=== PATIENT | female | born 1940 | race Caucasian/White ===

== ENCOUNTER → 2016-08-02 | Outpatient (CLI) | payer MEDICARE, BC ==
--- NOTE | 2016-08-03 08:48 | MM ---
Reason for exam: screening (asymptomatic). Last mammogram was performed 5 years and 8 months ago. History: Patient is postmenopausal. Took hormonal contraceptives for 5 years. Physical Findings: A clinical breast exam by your physician is recommended on an annual basis and results should be correlated with mammographic findings. MG Screening Mammo w CAD Bilateral CC and MLO view(s) were taken. Prior study comparison: November 29, 2010, CAD bilateral diagnostic mammogram. The breast tissue is extremely dense which could obscure a lesion on mammography. Finding: There are typically benign calcifications in both breasts. No significant changes in finding since November 29, 2010. ASSESSMENT: Benign, BI-RAD 2 RECOMMENDATION: Routine screening mammogram of both breasts in 1 year.
== END | disposition home or self-care (01) ==
LOC: RADMAMWWP 07:49
PROVIDERS: ATTEND Family Medicine
DX: Z12.31 Encounter for screening mammogram for malignant neoplasm of breast (principal)

== ENCOUNTER 2017-03-28 07:47 | Day surgery (SDC) | payer MEDICARE, BC ==
[2017-03-23 13:46] VITALS: BMI 26.8
[~2017-03-28 07:47] MED LIST: LACTATED RINGERS 1,000 ML IV SCH
[2017-03-28 08:07] VITALS: RESP 16; TEMP 96.1
[2017-03-28] MEDS ORDERED: LIDOCAINE 1% 20 ML VIAL (10MG/ML) FOR IV START INTRADERMA ONE (08:14)
--- NOTE | 2017-03-28 08:18 | P.GSHP ---
History of Present Illness H&P Date: 03/28/17 CHIEF COMPLAINT: Colon screen HISTORY OF PRESENT ILLNESS: The patient is a 76-year-old female who presents for colon screen. Lower endoscopy was offered for further evaluation and management. PAST MEDICAL HISTORY: Please see list. PAST SURGICAL HISTORY: Please see list. MEDICATIONS: Please see list. ALLERGIES: Please see list. SOCIAL HISTORY: No illicit drug use FAMILY HISTORY: No reports of Crohn disease or ulcerative colitis. REVIEW OF ORGAN SYSTEMS: CONSTITUTIONAL: No reports of fevers or chills. PHYSICAL EXAM: VITAL SIGNS: Stable GENERAL: Well-developed pleasant in no acute distress. HEENT: No scleral icterus. Extraocular movements grossly intact. Moist buccal mucosa. NECK: Supple without lymphadenopathy. CHEST: Unlabored respirations. Equal bilateral excursions. CARDIOVASCULAR: Regular rate and rhythm. Distal 2+ pulses. ABDOMEN: Soft, nontender, nondistended. MUSCULOSKELETAL: No clubbing, cyanosis, or edema. ASSESSMENT: 1. Colon screen. PLAN: 1. Recommend proceeding with a lower endoscopy Past Medical History Past Medical History: CVA/TIA, Hyperlipidemia, Hypertension Additional Past Medical History / Comment(s): KIDNEY STONES,Heart Murmur History of Any Multi-Drug Resistant Organisms: None Reported Past Surgical History: Cholecystectomy Additional Past Surgical History / Comment(s): nephrostomy Past Anesthesia/Blood Transfusion Reactions: No Reported Reaction, Family History of Problems w/ Anesthesia Additional Past Anesthesia/Blood Transfusion Reaction / Comment(s): daughter stopped breathing during anesthesia Smoking Status: Former smoker - Past Family History Sister(s) Family Medical History: Cancer Additional Family Medical History / Comment(s): ONE SISTER LYMPHOMA, AND ONE WITH MULT MYELONOMA Medications and Allergies Home Medications Medication Instructions Recorded Confirmed Type Aspirin [Adult Low Dose Aspirin EC] 1 tab PO DAILY 03/23/17 03/23/17 History Lisinopril-Hctz 10-12.5 mg 1 tab PO DAILY 03/23/17 03/23/17 History [Zestoretic 10-12.5] Simvastatin [Zocor] 20 mg PO HS 03/23/17 03/23/17 History Allergies Allergy/AdvReac Type Severity Reaction Status Date / Time No Known Allergies Allergy Verified 03/28/17 08:05 Surgical - Exam Vital Signs Temp Pulse Resp BP Pulse Ox 96.1 F L 84 16 157/77 95 03/28/17 08:05 03/28/17 08:05 03/28/17 08:05 03/28/17 08:05 03/28/17 08:05
[2017-03-28] MEDS ORDERED: GLYCOPYRROLATE 0.2 MG/ML 2 ML VIAL ONE (08:30)
[2017-03-28] MEDS ORDERED: PROPOFOL 10 MG/ML 20 ML VIAL IV ONE (08:30)
[2017-03-28] MEDS ORDERED: LIDOCAINE 1% INJ 10MG/ML (20 ML MDV) ONE (08:30)
--- NOTE | 2017-03-28 08:58 | P.PCN ---
Date of Procedure: 03/28/17 Preoperative Diagnosis: Postoperative Diagnosis: Procedure(s) Performed: Implants: Indications for Procedure: Operative Findings: Description of Procedure: PREOPERATIVE DIAGNOSIS: Colonoscopy screening. POSTOPERATIVE DIAGNOSIS: Colonoscopy screening. Diverticulosis, scattered. External hemorrhoids, grade 3. OPERATION: Colonoscopy to the ileocecal valve and appendiceal orifice. SURGEON: Chio Strickland MD. ANESTHESIA: MAC. INDICATIONS: The patient is a 76-year-old female who presents for her first colonoscopy screening. Benefits and risks were described and informed consent was obtained. DESCRIPTION OF PROCEDURE: The patient had undergone Gatorade, MiraLAX and Dulcolax prep. He had been brought into the operating room and laid in the left lateral decubitus position. After adequate intravenous sedation, the rectum was examined with 2% lidocaine jelly. External hemorrhoids were encountered. The rectal tone was within normal limits. No lesions were palpated in the rectal vault. An Olympus colonoscope was advanced until the ileocecal valve and appendiceal orifice were clearly viewed. Abdominal pressure was used to advance the scope to the ileocecal valve. The prep was excellent with clear visualization of the mucosal folds. The scope was removed with visualization of each mucosal fold. Scattered diverticulosis was encountered along the sigmoid colon. No colonic polyps were found. No evidence of focal colitis was found. The colon was desufflated. The patient had tolerated the procedure well. Withdrawal time was over 6 minutes. FINDINGS: External hemorrhoids, grade 3 No arteriovenous malformations. No adenomatous polyps. No focal colitis. Diverticulosis with tortuous colon. RECOMMENDATIONS: Lower endoscopy as needed she is low risk.
[2017-03-28 09:23] VITALS: BP 144/74; PULSE 78
== END 2017-03-28 09:44 | disposition home or self-care (01) ==
LOC: ORWHC2ENDO 07:47
PROVIDERS: ATTEND Surgery Plastic and Reconstructive Surgery
DX: Z12.11 Encounter for screening for malignant neoplasm of colon (principal); K57.30 Diverticulosis of large intestine without perforation or abscess without bleeding; K64.2 Third degree hemorrhoids; Q43.8 Other specified congenital malformations of intestine; Z86.73 Personal history of transient ischemic attack (TIA), and cerebral infarction without residual deficits; I10 Essential (primary) hypertension; E78.5 Hyperlipidemia, unspecified; Z87.891 Personal history of nicotine dependence; Z79.82 Long term (current) use of aspirin; Z79.899 Other long term (current) drug therapy
CPT/HCPCS: J2001; J2704; G0121

== ENCOUNTER → 2020-05-24 | Outpatient (CLI) | payer MEDICARE, BC ==
--- NOTE | 2020-05-24 15:02 | US ---
EXAMINATION TYPE: US pelvis complete transvag DATE OF EXAM: 05/24/2020 COMPARISON: Pelvic ultrasound 2012. CT pelvis 2013 CLINICAL HISTORY: N95.0 postmenopausal bleeding. Postmenopausal bleeding. TECHNIQUE: Transvaginal (TV) and Transabdominal (TA) . Transabdominal sonographic images of the pel vis were acquired. Transvaginal sonographic images were medically necessary to better assess the fol lowing anatomy: Uterus and ovaries. EXAM MEASUREMENTS: Uterus: 7.2 x 4.1 x 3.8 cm Endometrial Stripe: Not well visualized due to fibroid Right Ovary: 2.4 x 2.5 x 1.9 x cm Left Ovary: 3.0 x 1.5 x 2.5 cm 1. Uterus: Anteverted Heterogenous 2. Endometrium: Not will visualized due to fibroid. 3. Right Ovary: Cystic area seen 2.2 x 2.2 x 1.9 cm 4. Left Ovary: 3.0 x 1.5 x 2.5 cm 5. Bilateral Adnexa: wnl 6. Posterior cul-de-sac: wnl Anteverted uterus. Heterogeneous 3.5 cm fundal fibroid. No free fluid. Both ovaries identified with 2.2 cm thin-walled cyst in right ovary seen. Left ovary less well seen o n images saved. Left ovary identified on transabdominal investigation felt within normal limits. Righ t adnexal fat-containing lesion or dermoid with calcification on CT less well seen on ultrasound. IMPRESSION: Poor visualization of endometrium suspected atrophic. Probable 2.9 cm posterior subserosa l fibroid.
== END | disposition home or self-care (01) ==
LOC: RADUSWWP 14:19
PROVIDERS: ATTEND Family Medicine
DX: N95.0 Postmenopausal bleeding (principal)
CPT/HCPCS: 76830; 76856

== ENCOUNTER → 2020-05-26 | Outpatient (CLI) | payer MEDICARE, BC ==
[2020-05-26 09:58] LABS: Basophils % (A) 1 %; Eosinophils # (A) 0.1 k/uL (0-0.7); Eosinophils % (A) 3 %; HCT 43.7 % (34.0-46.0); HGB 14.1 gm/dL (11.4-16.0); Lymphocytes # (A) 1.6 k/uL (1.0-4.8); Lymphocytes % (A) 35 %; MCHC 32.3 g/dL (31.0-37.0); MCV 89.6 fL (80.0-100.0); Mean Platelet Volume 8.5; Monocytes # (A) 0.3 k/uL (0-1.0); Monocytes % (A) 5 %; Neutrophils # (A) 2.5 k/uL (1.3-7.7); Neutrophils % (A) 54 %; Platelet Count 228 k/uL (150-450); RBC 4.88 m/uL (3.80-5.40); RDW 12.9 % (11.5-15.5); WBC 4.6 k/uL (3.8-10.6)
== END | disposition home or self-care (01) ==
LOC: LABPAT 08:18
PROVIDERS: ATTEND Obstetrics & Gynecology
DX: Z01.818 Encounter for other preprocedural examination (principal)
CPT/HCPCS: 36415; 85025; 93005

== ENCOUNTER 2020-05-31 06:15 | Day surgery (SDC) | payer MEDICARE, BC ==
[2020-05-27 13:56] VITALS: BMI 27.8
[~2020-05-31 06:15] MED LIST changes: +DEXAMETHASONE SOD PHOSPHATE 4 MG/ML 1 ML VIAL IV ONE; +HYDROmorphone 0.5 MG/0.5 ML SYRINGE IVP PRN; +MIDAZOLAM 2 MG/2 ML VIAL IV PRN; +ONDANSETRON 4 MG/2 ML VIAL IVP ONE; +Pre Op ABX Message 1 EACH MISC MISCELLANE ONE
[2020-05-31] MEDS ORDERED: LIDOCAINE 1% (10MG/ML) FOR IV START INTRADERMA ONE (06:56)
[2020-05-31] MEDS ORDERED: PROPOFOL 10 MG/ML 20 ML VIAL IV ONE (07:24)
[2020-05-31] MEDS ORDERED: LIDOCAINE 1% INJ 10MG/ML (20 ML MDV) ONE (07:24)
[2020-05-31] MEDS ORDERED: fentaNYL (PF) 50 MCG/ML 2 ML AMP ONE (07:24)
[2020-05-31] MEDS ORDERED: IODINE/POTASS IOD (LUGOLS) BOTTLE TOPICAL ONE (07:43)
--- NOTE | 2020-05-31 08:05 | P.HPOB ---
History of Present Illness H&P Date: 05/31/20 Chief Complaint: Postmenopausal bleeding Edgar is a 79-year-old female who was sent to my office last week for postmenopausal bleeding from her primary care provider. She noticed bleeding last month but has not had any bleeding heart that. A Pap smear had been done and showed possible neoplastic cells and therefore she is scheduled for a D&C with hysteroscopy. We also perform a colposcopy as the passer was abnormal. Risks/benefits/alternatives to this procedure were reviewed with the patient in detail and all questions were answered for her prior to proceeding to the operative room. Past Medical History Past Medical History: CVA/TIA, Hyperlipidemia, Hypertension Additional Past Medical History / Comment(s): KIDNEY STONES, Heart Murmur, vaginal bleeding History of Any Multi-Drug Resistant Organisms: None Reported Past Surgical History: Cholecystectomy Additional Past Surgical History / Comment(s): nephrostomy Past Anesthesia/Blood Transfusion Reactions: No Reported Reaction, Family History of Problems w/ Anesthesia Additional Past Anesthesia/Blood Transfusion Reaction / Comment(s): daughter stopped breathing during anesthesia Smoking Status: Former smoker - Past Family History Sister(s) Family Medical History: Cancer Additional Family Medical History / Comment(s): ONE SISTER LYMPHOMA, AND ONE WITH MULT MYELOMA Medications and Allergies Home Medications Medication Instructions Recorded Confirmed Type Aspirin [Adult Low Dose Aspirin EC] 1 tab PO DAILY 03/23/17 05/31/20 History Lisinopril-Hctz 10-12.5 mg 0.5 tab PO PC-SUPPER 03/23/17 05/31/20 History [Zestoretic 10-12.5] Simvastatin [Zocor] 20 mg PO HS 03/23/17 05/31/20 History Magnesium 200 mg PO DAILY 05/27/20 05/31/20 History Ubidecarenone [Co Q-10] 100 mg PO DAILY 05/27/20 05/31/20 History Ibuprofen [Motrin] 600 mg PO Q6HR PRN #30 tab 05/31/20 Rx Allergies Allergy/AdvReac Type Severity Reaction Status Date / Time No Known Allergies Allergy Verified 05/27/20 13:50 Exam Osteopathic Statement: *. No significant issues noted on an osteopathic str uctural exam other than those noted in the History and Physical/Consult. Vital Signs Temp Pulse Resp BP Pulse Ox 05/31/20 06:47 99.1 F 70 16 162/72 94 L Intake and Output 05/30/20 05/31/20 05/31/20 22:59 06:59 14:59 Intake Total 300 Output Total 1 Balance 299 Intake: Blood Product 300 Output: Estimated Blood Loss 1 Other: Weight 76 kg - OBG Physical Exam Breast: both: normal (no masses) Abdomen: bowel sounds normal, no diffuse tenderness, no bruit present, no guarding noted, no hepatomegaly, no splenomegaly, no mass Vulva: both: normal Vagina: normal moisture, no discharge Cervix: no lesion, no discharge Uterus: normal size, normal contour Adnexa: both: normal Anus/Rectum: normal perianal skin, no rectal mass, no hemorrhoids, heme negative
--- NOTE | 2020-05-31 08:07 | P.OP ---
Date of Procedure: 05/31/20 Preoperative Diagnosis: Postmenopausal bleeding Postoperative Diagnosis: Same Procedure(s) Performed: D&C with hysteroscopy and colposcopy Anesthesia: [facility] Surgeon: Kalin Gutierrez Estimated Blood Loss (ml): 1 Pathology: other (Uterine and endocervical curettings) Condition: stable Disposition: floor Operative Findings: Pathology pending. Fibroid felt to be noted in the uterus but no other significant pathology noted Description of Procedure: Patient was taken to the operating suite where a general anesthetic was found be adequate. She was prepped and draped in the normal sterile fashion and placed in the dorsal lithotomy position. Initially a weighted speculum was inserted in the vagina and the anterior lip of the cervix was identified and coated with Lugol solution. Once this was accomplished colposcope was used no external changes were readily noted therefore a Kevorkian curette was used to obtain endocervical curettings. Once this was accomplished colposcope was removed and cervix was dilated. Camera was then inserted. Fibroid was noted on the posterior wall but no other hyperplasia was really noted. Her for sharp curettings of the endometrium were obtained placed on Telfa and sent to pathology for evaluation. All incidents were then removed. Sponge, lap, needle counts were all correct 2. Patient was then taken to the recovery room in stable and satisfactory condition. Plan - Discharge Summary Discharge Rx Participant: No New Discharge Prescriptions: New Ibuprofen [Motrin] 600 mg PO Q6HR PRN #30 tab PRN Reason: Pain No Action Simvastatin [Zocor] 20 mg PO HS Lisinopril-Hctz 10-12.5 mg [Zestoretic 10-12.5] 0.5 tab PO PC-SUPPER Aspirin [Adult Low Dose Aspirin EC] 1 tab PO DAILY Magnesium 200 mg PO DAILY Ubidecarenone [Co Q-10] 100 mg PO DAILY Discharge Medication List Aspirin [Adult Low Dose Aspirin EC] 1 tab PO DAILY 03/23/17 [History] Lisinopril-Hctz 10-12.5 mg [Zestoretic 10-12.5] 0.5 tab PO PC-SUPPER 03/23/17 [History] Simvastatin [Zocor] 20 mg PO HS 03/23/17 [History] Magnesium 200 mg PO DAILY 05/27/20 [History] Ubidecarenone [Co Q-10] 100 mg PO DAILY 05/27/20 [History] Ibuprofen [Motrin] 600 mg PO Q6HR PRN #30 tab 05/31/20 [Rx] Follow up Appointment(s)/Referral(s): Kalin Gutierrez DO [Doctor of Osteopathic Medicine] - 1 Week Activity/Diet/Wound Care/Special Instructions: Ting, limit stairs and driving, and pelvic rest. If any high temperatures, heavy bleeding, or severe pain call my office Discharge Disposition: HOME SELF-CARE
[2020-05-31 08:12] VITALS: TEMP 98.8
[2020-05-31 09:12] VITALS: BP 151/64; PULSE 72; RESP 16
== END 2020-05-31 09:56 | disposition home or self-care (01) ==
LOC: OR 06:15
PROVIDERS: ATTEND Obstetrics & Gynecology
DX: C54.1 Malignant neoplasm of endometrium (principal); C53.0 Malignant neoplasm of endocervix; I10 Essential (primary) hypertension; E78.5 Hyperlipidemia, unspecified; R01.1 Cardiac murmur, unspecified; Z86.73 Personal history of transient ischemic attack (TIA), and cerebral infarction without residual deficits; Z87.891 Personal history of nicotine dependence; Z79.82 Long term (current) use of aspirin; Z79.899 Other long term (current) drug therapy; Z87.442 Personal history of urinary calculi; Z90.49 Acquired absence of other specified parts of digestive tract; Z93.6 Other artificial openings of urinary tract status; Z80.7 Family history of other malignant neoplasms of lymphoid, hematopoietic and related tissues
CPT/HCPCS: 58558; 88305; 88342; 88341; J1100; J2405; J2001; J3010; J2704

== ENCOUNTER → 2020-06-16 | Outpatient (CLI) | payer MEDICARE, BC ==
--- NOTE | 2020-06-16 12:00 | CT ---
EXAMINATION TYPE: CT chest wo/w con DATE OF EXAM: 06/16/2020 COMPARISON: NONE HISTORY: uterine cancer CT DLP: 460.1 mGycm. Automated Exposure Control for Dose Reduction was Utilized. TECHNIQUE: CT scan of the thorax is performed following without and with IV Contrast, patient inject ed with 100 mL of Isovue 300. FINDINGS: LUNGS: Mild biapical pleural/parenchymal scarring. There is partially calcified 7 mm superior right l ower lobe nodule image 32 favored benign. There is nonspecific 8 x 6 mm nodule image 37 which is nonc alcified. Heterogeneity noted on postcontrast images. Mild linear scarring in both lung bases left gr eater than right. There is 4 mm peripheral scarlike opacity periphery left lung axial image 28 MEDIASTINUM: There are no greater than 1 cm hilar or mediastinal lymph nodes. No pericardial effusi on is seen. Heart size upper limits of normal. Scattered thyroid nodules bilaterally including right- sided nodule or nodules with calcification. Follow-up advised. OTHER: Cholecystectomy clips. Moderate to severe multilevel spurring. 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 IMPRESSION: 1. Nonspecific 8 x 6 mm noncalcified right middle lobe nodule. Short-term CT follow-up advised. This is noted present CT abdomen 2014 study but slightly increased in size. Benign etiology favored. 2. Thyroid nodules some which contain calcification. Follow-up thyroid ultrasound is advised to adalberto r evaluate and characterize. 3. 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
== END | disposition home or self-care (01) ==
LOC: RADCTMAIN 10:18
PROVIDERS: ATTEND Family Medicine
DX: R91.1 Solitary pulmonary nodule (principal); E04.2 Nontoxic multinodular goiter; C55 Malignant neoplasm of uterus, part unspecified; Z13.9 Encounter for screening, unspecified
CPT/HCPCS: 82565; 84520; 71270; 36415; Q9967

== ENCOUNTER 2020-08-30 08:53 | Day surgery (SDC) | payer MEDICARE, BC ==
[2020-08-26 15:39] VITALS: BMI 25.7
[~2020-08-30 08:53] MED LIST changes: +ACETAMINOPHEN TAB 500 MG TAB PO PRN; -DEXAMETHASONE SOD PHOSPHATE 4 MG/ML 1 ML VIAL IV ONE; +HEPARIN SODIUM,PORCINE 5,000 UNIT/ML 1 ML VIAL SQ PRN; -HYDROmorphone 0.5 MG/0.5 ML SYRINGE IVP PRN; -LACTATED RINGERS 1,000 ML IV SCH; -MIDAZOLAM 2 MG/2 ML VIAL IV PRN; -ONDANSETRON 4 MG/2 ML VIAL IVP ONE
[2020-08-30] MEDS ORDERED: ONDANSETRON 4 MG/2 ML VIAL ONE (09:22)
[2020-08-30] MEDS ORDERED: DEXAMETHASONE SOD PHOSPHATE 4 MG/ML 1 ML VIAL IV ONE (09:44)
--- NOTE | 2020-08-30 09:44 | P.GSHP ---
History of Present Illness H&P Date: 08/30/20 Chief Complaint: Cervical cancer 79-year-old female recently diagnosed with cervical cancer. Patient scheduled for radiation therapy to the vaginal cuff did well. Patient underwent hysterectomy BSO on July 26. Here today for Port-A-Cath placement. Past Medical History Past Medical History: Cancer, CVA/TIA, Eye Disorder, Hearing Disorder / Deafness, Hyperlipidemia, Hypertension, Thyroid Disorder Additional Past Medical History / Comment(s): Glaucoma, hearing aids, hx Kidney stones, told hx "mini strokes," Heart Murmur, Cervical cancer 05/2020. Sm growth found on thyroid, to have biopsy. History of Any Multi-Drug Resistant Organisms: None Reported Past Surgical History: Cholecystectomy, Hysterectomy Additional Past Surgical History / Comment(s): nephrostomy tube post kidney stone surgery. bilateral cataracts. D&C, hysteroscopy, polposcopy Past Anesthesia/Blood Transfusion Reactions: No Reported Reaction, Family History of Problems w/ Anesthesia Additional Past Anesthesia/Blood Transfusion Reaction / Comment(s): daughter stopped breathing during anesthesia Smoking Status: Former smoker - Past Family History Sister(s) Family Medical History: Cancer Additional Family Medical History / Comment(s): ONE SISTER LYMPHOMA, AND ONE WITH MULT MYELOMA Medications and Allergies Home Medications Medication Instructions Recorded Confirmed Type Aspirin [Adult Low Dose Aspirin EC] 81 tab PO HS 03/23/17 08/30/20 History Lisinopril-Hctz 10-12.5 mg 0.5 tab PO PC-SUPPER 03/23/17 08/30/20 History [Zestoretic 10-12.5] Simvastatin [Zocor] 20 mg PO HS 03/23/17 08/30/20 History Magnesium 400 mg PO DAILY 05/27/20 08/30/20 History Ubidecarenone [Co Q-10] 100 mg PO DAILY 05/27/20 08/30/20 History Vitamin B Complex 1 each PO DAILY 08/26/20 08/30/20 History Allergies Allergy/AdvReac Type Severity Reaction Status Date / Time No Known Allergies Allergy Verified 08/30/20 09:27 Surgical - Exam Physical exam: General: Well-developed, well-nourished HEENT: Normocephalic, sclerae nonicteric Abdomen: Nontender, nondistended Extremities: No edema Neuro: Alert and oriented Assessment and Plan (1) Cervical cancer Narrative/Plan: 79-year-old female with new diagnosis of cervical cancer. We'll proceed with Port-A-Cath placement for the administration of chemotherapy. Risks of bleeding, infection, DVT, pneumothorax, catheter malfunction, anesthesia related complications were discussed. The patient understands and wishes to proceed. Current Visit: Yes Status: Acute Code(s): C53.9 - MALIGNANT NEOPLASM OF CER VIX UTERI, UNSPECIFIED SNOMED Code(s): 852490420
[2020-08-30] MEDS ORDERED: LACTATED RINGERS 1,000 ML IV ONE (09:45)
[2020-08-30] MEDS ORDERED: fentaNYL (PF) 50 MCG/ML 2 ML AMP ONE (11:16)
[2020-08-30] MEDS ORDERED: PROPOFOL 10 MG/ML 20 ML VIAL IV ONE (11:16)
[2020-08-30] MEDS ORDERED: MIDAZOLAM 2 MG/2 ML VIAL ONE (11:16)
[2020-08-30] MEDS ORDERED: LIDOCAINE 1% INJ 10MG/ML (20 ML MDV) ONE (11:16)
[2020-08-30] MEDS ORDERED: SODIUM CHLORIDE 0.9% 50 ML with ceFAZolin 1,000 MG IV ONE ×2 (11:25)
[2020-08-30] MEDS ORDERED: LIDOCAINE (PF) 10 MG/ML 2 ML VIAL SQ ONE ×2 (11:44)
[2020-08-30] MEDS ORDERED: HEPARIN SODIUM,PORCINE 100 UNIT/ML 5 ML VIAL IV ONE ×2 (11:52)
[2020-08-30] MEDS ORDERED: NALOXONE 0.4 MG/ML 1 ML VIAL IV PRN (12:13)
[2020-08-30] MEDS ORDERED: HYDROmorphone 0.5 MG/0.5 ML SYRINGE IVP PRN (12:13)
[2020-08-30 12:15] VITALS: TEMP 97.8
--- NOTE | 2020-08-30 12:15 | P.OP ---
Date of Procedure: 08/30/20 Procedure(s) Performed: PREOPERATIVE DIAGNOSIS: Cervical cancer POSTOPERATIVE DIAGNOSIS: Same PROCEDURE: Port-A-Cath placement with fluoroscopic and ultrasound guidance SURGEON: Edelmira EBL: Minimal ANESTHESIA: Sedation COMPLICATIONS: None OPERATIVE PROCEDURE: Patient was brought and placed on the operative table in the supine position. The patient was sedated per anesthesia that time. The chest and neck were prepped and draped in usual sterile fashion. The ultrasound probe was used to identify the location of the right internal jugular vein. The skin was localized with lidocaine. The Seldinger needle was advanced into the IJ under ultrasound guidance. The wire was advanced through the needle under fluoroscopic guidance into the superior vena cava. A port pocket was created in the right infraclavicular location. The catheter was tunneled from the wire entrance site to the port pocket. The port was then connected to the catheter. The dilator introducer was threaded over the guidewire. The guidewire and dilator were then removed. The catheter was advanced through the introducer and introducer was then removed. The tip was seen to be in the right atrial junction via fluoroscopy. A picture of the radiograph showing the tip at the radial digital junction was taken. Port was flushed with both saline and a Hep- Lock solution. There was good flow both in and out of the port. The port was sutured in underlying tissues using 3-0 silk sutures. The subcutaneous tissues were reapproximated using 3-0 Vicryl sutures and the skin at both locations using 4-0 Monocryl sutures. Skin glue and sterile dressings then applied. DISPOSITION: Stable to recovery room
--- NOTE | 2020-08-30 12:56 | XR ---
EXAMINATION TYPE: XR chest 1V confirm line [facility] DATE OF EXAM: 08/30/2020 COMPARISON: 05/23/[address] 06/16/2020 HISTORY: 79-year-old female shortness of breath and pulmonary hypertension TECHNIQUE: Single frontal view of the chest is obtained. FINDINGS: Right anterior chest wall injection port with catheter tip at the cavoatrial junction. Heart borderli ne in size. Bilateral hilar prominence. Some patchy medial right basilar opacity is noted. No consoli dation or pleural effusion. IMPRESSION: 1. Some patchy medial right basilar atelectasis versus early infiltrate. Correlate with patient's sym ptoms. 2. Mild bilateral hilar prominence in keeping with the patient's reported pulmonary arterial hyperten ruperto.
[2020-08-30 13:29] VITALS: RESP 20
[2020-08-30 14:28] VITALS: BP 121/72; PULSE 57
--- NOTE | 2020-08-30 16:16 | FL ---
EXAMINATION TYPE: FL guided central line placement DATE OF EXAM: 08/30/2020 FLUOROSCOPY Fluoroscopy time of 11 seconds was used during right-sided Port-A-Cath insertion. 1 image/s document /s the procedure.
== END 2020-08-30 14:25 | disposition home or self-care (01) ==
LOC: OR 08:53
PROVIDERS: ATTEND Surgery
DX: C53.9 Malignant neoplasm of cervix uteri, unspecified (principal); Z90.722 Acquired absence of ovaries, bilateral; E78.5 Hyperlipidemia, unspecified; Z86.73 Personal history of transient ischemic attack (TIA), and cerebral infarction without residual deficits; H91.90 Unspecified hearing loss, unspecified ear; E07.89 Other specified disorders of thyroid; I10 Essential (primary) hypertension; H40.9 Unspecified glaucoma; I27.21 Secondary pulmonary arterial hypertension; R01.1 Cardiac murmur, unspecified; F32.9 Major depressive disorder, single episode, unspecified; Z87.891 Personal history of nicotine dependence; Z90.49 Acquired absence of other specified parts of digestive tract; Z90.710 Acquired absence of both cervix and uterus; Z98.42 Cataract extraction status, left eye; Z98.41 Cataract extraction status, right eye; Z98.890 Other specified postprocedural states; Z80.7 Family history of other malignant neoplasms of lymphoid, hematopoietic and related tissues; Z97.2 Presence of dental prosthetic device (complete) (partial); Z87.442 Personal history of urinary calculi; Z79.82 Long term (current) use of aspirin; Z79.899 Other long term (current) drug therapy
CPT/HCPCS: 77001; 36561; 76937; C1788; J2250; J2001 ×2; J1644; J1642; J1100; J2405; J0690; J3010; J2704

== ENCOUNTER → 2020-09-01 | Outpatient (CLI) | payer MEDICARE, BC ==
[2020-09-01 12:46] LABS: African American GFR (CKD) >90 (>60 ml/min/1.73 sqM); Blood Urea Nitrogen 15 mg/dL (7-17); Non-African American GFR(CKD) 84 (>60 ml/min/1.73 sqM)
--- NOTE | 2020-09-01 14:39 | CT ---
EXAMINATION TYPE: CT ChestAbdPelvis w con DATE OF EXAM: 09/01/2020 COMPARISON: CT chest 06/16/2020, MR abdomen pelvis 06/25/2020 from outside institution HISTORY: follow up cervical cancer CT DLP: 1218 mGycm Automated exposure control for dose reduction was used. CONTRAST: CT scan of the chest, abdomen and pelvis is performed with Oral Contrast and with IV Contrast, patien t injected with 100 mL of Isovue 300. FINDINGS: LUNGS: Right upper lobe medially on axial image 21 shows a 5 mm soft tissue nodule not seen on prior exam, additional subpleural nodule is more vague on axial image 20 in the subpleural location right u pper lobe. Calcified nodule present in the right lower lobe, subpleural nodule immediately superior o n axial image 23 posterior aspect of the right hemithorax. Multiple new soft tissue nodules are prese nt along the hemidiaphragms, lung bases, largest in the left lower lobe on axial image 48 measures sl ightly less than 1 cm, largest on the right along the hemidiaphragm measures approximately 1 cm on ax ial image #45, no pleural or pericardial effusion MEDIASTINUM: There are no greater than 1 cm hilar or mediastinal lymph nodes. No pericardial effusi on is seen. AORTA: No significant abnormality is seen. OTHER: No additional significant abnormality is seen. LIVER/GB: Patient is post cholecystectomy. There is some mild dilation of the pancreatic duct central ly, common bile duct and central portions of the intrahepatic biliary ducts PANCREAS: No significant abnormality is seen. SPLEEN: No significant abnormality is seen. ADRENALS: No significant abnormality is seen. KIDNEYS: Nonobstructive calculus present at the lower pole the right kidney, there is bilateral hydro nephrosis. There are hydroureters. REPRODUCTIVE ORGANS: Postop changes are present. BOWEL: No significant abnormality is seen. FREE AIR: No Free Air visible. ASCITES: None seen. RETROPERITONEAL ADENOPATHY: No retroperitoneal adenopathy is seen. LYMPH NODES: No greater than 1 cm abdominal or pelvic lymph nodes are appreciated. URINARY BLADDER: No significant abnormality is seen. PELVIC ADENOPATHY: None visualized. OSSEOUS STRUCTURES: No significant abnormality is seen. 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 Postop changes. Hydroureter and hydronephrosis may be due to postop change, scarring in the pelvis.
== END | disposition home or self-care (01) ==
LOC: RADCTMAIN 12:00
PROVIDERS: ATTEND Internal Medicine Hematology & Oncology
DX: N13.4 Hydroureter (principal); C53.9 Malignant neoplasm of cervix uteri, unspecified; Z98.890 Other specified postprocedural states
CPT/HCPCS: 82565; 84520; 71260; 74177; 36415; Q9967

== ENCOUNTER → 2020-09-20 | Outpatient (CLI) | payer MEDICARE, BC ==
--- NOTE | 2020-09-20 19:18 | BD ---
EXAMINATION TYPE: Axial Bone Density DATE OF EXAM: 09/20/2020 COMPARISON: NONE CLINICAL HISTORY: Postmenopausal screening Height: 64.5 IN Weight: 156 LBS FRAX RISK QUESTIONS: Secondary Osteoporosis: 3. Menopause before 45: RISK FACTORS HISTORY OF: Active: YES Diet low in dairy products/other sources of calcium: YES Postmenopausal woman: TOTAL HYST AGE 49 MEDICATIONS: Additional Medications: HCTZ, PRAVASTATIN, LOW DOSE ASPIRIN, MAGNESIUM, COQ10, CENTRUM SILVER, Additional History: CERVICAL CANCER WITH CHEMO EXAM MEASUREMENTS: Bone mineral densitometry was performed using the [employer] System. Bone mineral density as measured about the Lumbar spine is: ----- L1-L4(G/cm2): 1.148 T Score Values are as follows: ----- L2: -1.1 ----- L3: -0.5 ----- L4: 0.7 ----- L1-L4: -0.9 Bone mineral density BASELINE Bone mineral density about the R hip (g/cm2): 0.942 Bone mineral density about the L hip (g/cm2): 0.905 T Score values are as follows: -----R Neck: -0.7 -----L Neck: -1.0 -----R Total: -0.8 -----L Total: -1.0 Bone mineral density BASELINE IMPRESSION: Normal (Values between +1 and -1 indicate normal bone mass). However, note that measurements border o n osteopenia at both hips. Consider repeating this study in 5 years or sooner if there is some new clinical indication. NOTE: T-SCORE=SD OF THE YOUNG ADULT MEAN.
== END ==
LOC: RADBDWWP 09:49
PROVIDERS: ATTEND Family Medicine
DX: M85.89 Other specified disorders of bone density and structure, multiple sites (principal); Z78.0 Asymptomatic menopausal state
CPT/HCPCS: 77080

== ENCOUNTER 2020-10-07 12:51 | Day surgery (SDC) | payer MEDICARE, BC ==
[2020-10-07 13:34] VITALS: RESP 18; TEMP 97.8
[2020-10-07 13:55] VITALS: BP 129/65; PULSE 78
--- NOTE | 2020-10-07 14:39 | US ---
ULTRASOUND GUIDED FNA THYROID BIOPSY: CLINICAL HISTORY: Right thyroid nodule FINDINGS: The procedure was explained to the patient. The risks, complications, benefits and alternatives were discussed and any questions were answered. Informed consent was obtained. Patient was placed supin e on the ultrasound table and prepped and draped in the usual sterile fashion. Utilizing a 25 gauge needle, five passes were made into the right thyroid nodule. Patient was stable throughout the procedure. Pathology is pending. All elements of maximal barrier technique were utilized. IMPRESSION: 1. Successful ultrasound guided FNA thyroid biopsy.
== END 2020-10-07 13:57 | disposition home or self-care (01) ==
LOC: RADPROMAIN 12:51
PROVIDERS: ATTEND Family Medicine
DX: E04.1 Nontoxic single thyroid nodule (principal)
CPT/HCPCS: 10005; 88173; 88305

== ENCOUNTER → 2021-03-03 | Outpatient (CLI) | payer MEDICARE, BC ==
[2021-03-03 14:32] LABS: African American GFR (CKD) >90 (>60 ml/min/1.73 sqM); Blood Urea Nitrogen 13 mg/dL (7-17); Non-African American GFR(CKD) 85 (>60 ml/min/1.73 sqM)
--- NOTE | 2021-03-03 19:21 | CT ---
EXAMINATION TYPE: CT ChestAbdPelvis w con DATE OF EXAM: 03/03/2021 COMPARISON: CT of the chest abdomen and pelvis dated 09/01/2020 and 06/16/2020. CT of the chest abdome n and pelvis dated 11/08/2020. HISTORY: Cervical ca, observe for mets CT DLP: 1419 mGycm Automated exposure control for dose reduction was used. CONTRAST: CT scan of the chest, abdomen and pelvis is performed with Oral Contrast and with IV Contrast, patien t injected with 100 mL of Isovue 300. FINDINGS: LUNGS: There is a partially calcified 11 mm nodule in the right lower lobe which was seen on prior study and appears stable. There is a solid nodule in the right middle lobe 37 series 4 was seen on prior study and appears stable. There is a 4 mm nodule in the left upper lobe series 4 image 28 which is stable as well. There is no focal airspace disease, pneumothorax or pleural effusion. The trachea and bronchial tree are patent. No mediastinal or hilar adenopathy the mediastinum is not changed in appearance since prior study. The heart is normal in size and there is no pericardial effusion. The great vessels are normal in cou rse and caliber. There is a port in the right side of the chest step is at the cavoatrial junction. There is generalized osteopenia. Degenerative changes are seen in the thoracic spine. No suspicious l esions seen in the thoracic spine or ribs. Abdomen and pelvis: LIVER/GB: Gallbladder has been surgically removed. Liver is unremarkable. Mildly dilated extrahepatic common bile duct similar to prior study. PANCREAS: Pancreatic main duct prominence similar to prior study. SPLEEN: No significant abnormality is seen. ADRENALS: No significant abnormality is seen. KIDNEYS: 5 mm calculus is seen in the right kidney lower pole. This calculus was seen on prior study. There is mild dilatation of the central right renal collecting system similar to prior study and the re is bilateral extrarenal pelvis. There is minimal left hydronephrosis similar to prior study. There is mild dilatation of the right ureter to the level of the upper pelvis, the distal right ureter is difficult to follow due to oral contrast and surrounding bowel. There are subcentimeter low attenuati ng lesions in the left renal cortex likely representing cysts, without significant change. BOWEL: No significant abnormality is seen. REPRODUCTIVE ORGANS: Postsurgical changes again seen. LYMPH NODES: No greater than 1 cm abdominal or pelvic lymph nodes are appreciated. OSSEOUS STRUCTURES: No suspicious osseous lesion seen. Generalized osteopenia noted. Grade 1 anterior listhesis of L4 over L5 seen. Moderate narrowing of L3-4 L4-5 and L5-S1 seen. There is disc herniati on and disc vacuum phenomenon at L5-S1. Mild facet joint arthropathy changes are seen in the lumbar s pine. OTHER: No significant soft tissue abnormality is seen other than stranding/scarring at the midline li reese related to prior surgery. IMPRESSION: 1. Nodules in the right middle, right lower and left upper lobes stable since prior. Nonspecific and could be related to metastasis, infection or inflammation. 2. Mild dilatation of the extrahepatic bile ducts status post cholecystectomy. 3. Stable prominence of the main pancreatic duct. 4. Millimeters right renal lower pole calculus stable in size. 5. Mild bilateral right greater than left hydronephrosis and right upper and middle ureter dilatation similar to prior study.
== END | disposition home or self-care (01) ==
LOC: RADPROMAIN 13:50
PROVIDERS: ATTEND Internal Medicine Hematology & Oncology
DX: C53.9 Malignant neoplasm of cervix uteri, unspecified (principal); R91.8 Other nonspecific abnormal finding of lung field; K83.8 Other specified diseases of biliary tract; N20.0 Calculus of kidney; N13.30 Unspecified hydronephrosis
CPT/HCPCS: 82565; 84520; 71260; 74177; 36415; J1642; Q9967

== ENCOUNTER 2021-07-23 21:07 | Inpatient (IN) | payer MEDICARE, BC ==
[2021-07-23] MEDS ORDERED: ONDANSETRON 4 MG/2 ML VIAL IVP STA (21:25)
[2021-07-23] MEDS ORDERED: SODIUM CHLORIDE 0.9% 500 ML 500 ML IV STA (21:25)
[2021-07-23] MEDS ORDERED: SODIUM CHLORIDE 0.9% 1,000 ML IV STA (21:25)
--- NOTE | 2021-07-23 21:31 | ED ---
Abdominal Pain HPI - General Chief Complaint: Abdominal Pain Stated Complaint: Abdominal Pain, Vomiting Time Seen by Provider: 07/23/21 21:18 Source: patient, RN notes reviewed Mode of arrival: ambulatory Limitations: no limitations - History of Present Illness Initial Comments: This a 80-year-old female presents emergency Department chief complaint of a bdominal pain. Patient states pain started earlier today she started increasing pain which is wax and wane along with nausea vomiting. She states she does have history of pancreatitis from her gallbladder in which she had a cholecystectomy. Patient denies any known fever states that she's quite sweaty after vomiting. No chest pain or shortness breath she states she's had a cold that she's been dealing with for last 1 week. Patient denies any significant diarrhea dysuria hematuria - Related Data Home Medications Medication Instructions Recorded Confirmed Aspirin [Adult Low Dose Aspirin EC] 81 tab PO HS 03/23/17 07/23/21 Lisinopril-Hctz 10-12.5 mg 0.5 tab PO HS 03/23/17 07/23/21 [Zestoretic 10-12.5] Ubidecarenone [Co Q-10] 100 mg PO AC-SUPPER 05/27/20 07/23/21 Magnesium Oxide [Mag-Ox] 400 mg PO AC-SUPPER 07/23/21 07/23/21 Multivit with Calcium,Iron,Min 1 tab PO AC-SUPPER 07/23/21 07/23/21 [Women's Multivitamin] Pravastatin Sodium [Pravachol] 20 mg PO HS 07/23/21 07/23/21 Allergies Allergy/AdvReac Type Severity Reaction Status Date / Time No Known Allergies Allergy Verified 07/23/21 22:36 Review of Systems ROS Statement: Those systems with pertinent positive or pertinent negative responses have been documented in the HPI. ROS Other: All systems not noted in ROS Statement are negative. Past Medical History Past Medical History: Cancer, CVA/TIA, Eye Disorder, Hearing Disorder / Deafness, Hyperlipidemia, Hypertension, Thyroid Disorder Additional Past Medical History / Comment(s): Glaucoma, hearing aids, hx Kidney stones, told hx "mini strokes," Heart Murmur, Cervical cancer 05/2020. Sm growth found on thyroid, to have biopsy. History of Any Multi-Drug Resistant Organisms: None Reported Past Surgical History: Cholecystectomy, Hysterectomy Additional Past Surgical History / Comment(s): nephrostomy tube post kidney stone surgery. bilateral cataracts. D&C, hysteroscopy, polposcopy Past Anesthesia/Blood Transfusion Reactions: No Reported Reaction, Family History of Problems w/ Anesthesia Additional Past Anesthesia/Blood Transfusion Reaction / Comment(s): daughter stopped breathing during anesthesia Past Psychological History: No Psychological Hx Reported Smoking Status: Former smoker Past Alcohol Use History: Rare Past Drug Use History: None Reported - Past Family History Sister(s) Family Medical History: Cancer Additional Family Medical History / Comment(s): ONE SISTER LYMPHOMA, AND ONE WITH MULT MYELOMA General Exam Limitations: no limitations General appearance: alert, in no apparent distress Head exam: Present: atraumatic, normocephalic, normal inspection Eye exam: Present: normal appearance, PERRL, EOMI. Absent: scleral icterus, conjunctival injection, periorbital swelling ENT exam: Present: normal exam, normal oropharynx, mucous membranes moist Neck exam: Present: normal inspection, full ROM. Absent: tenderness, meningismus, lymphadenopathy Respiratory exam: Present: normal lung sounds bilaterally. Absent: respiratory distress, wheezes, rales, rhonchi, stridor Cardiovascular Exam: Present: regular rate, normal rhythm, normal heart sounds. Absent: systolic murmur, diastolic murmur, rubs, gallop, clicks GI/Abdominal exam: Present: soft, tenderness, normal bowel sounds. Absent: distended, guarding, rebound, rigid Neurological exam: Present: alert, oriented X3 Course Vital Signs 07/23/21 07/23/21 07/24/21 21:10 22:51 00:25 Temperature 97.1 F L Pulse Rate 72 63 57 L Respiratory 20 16 18 Rate Blood Pressure 158/81 164/76 150/75 O2 Sat by Pulse 98 95 95 Oximetry Medical Decision Making - Medical Decision Making CT shows evidence of ileus. Patient's been having intractable nausea vomiting. Patient be admitted for IV hydration bowel rest surgery evaluation - Lab Data Result diagrams: 07/23/21 21:54 07/23/21 21:54 Lab Results 07/23/21 07/23/21 07/23/21 Range/Units 21:54 21:54 21:54 WBC 8.4 (3.8-10.6) k/uL RBC 5.13 (3.80-5.40) m/uL Hgb 15.3 (11.4-16.0) gm/dL Hct 45.6 (34.0-46.0) % MCV 88.9 (80.0-100.0) fL MCH 29.8 (25.0-35.0) pg MCHC 33.5 (31.0-37.0) g/dL RDW 13.4 (11.5-15.5) % Plt Count 357 (150-450) k/uL MPV 7.4 Neutrophils % 83 % Lymphocytes % 11 % Monocytes % 4 % Eosinophils % 1 % Basophils % 1 % Neutrophils # 7.0 (1.3-7.7) k/uL Lymphocytes # 0.9 L (1.0-4.8) k/uL Monocytes # 0.3 (0-1.0) k/uL Eosinophils # 0.1 (0-0.7) k/uL Basophils # 0.0 (0-0.2) k/uL Sodium 137 (137-145) mmol/L Potassium 4.4 (3.5-5.1) mmol/L Chloride 99 (98-107) mmol/L Carbon Dioxide 27 (22-30) mmol/L Anion Gap 11 mmol/L BUN 20 H (7-17) mg/dL Creatinine 0.70 (0.52-1.04) mg/dL Est GFR (CKD-EPI)AfAm >90 (>60 ml/min/1.73 sqM) Est GFR (CKD-EPI)NonAf 83 (>60 ml/min/1.73 sqM) Glucose 178 H (74-99) mg/dL Plasma Lactic Acid Ruben 1.4 (0.7-2.0) mmol/L Calcium 9.9 (8.4-10.2) mg/dL Total Bilirubin 0.6 (0.2-1.3) mg/dL AST 30 (14-36) U/L ALT 21 (4-34) U/L Alkaline Phosphatase 87 (38-126) U/L Troponin I (0.000-0.034) ng/mL Total Protein 6.8 (6.3-8.2) g/dL Albumin 4.3 (3.5-5.0) g/dL Amylase 40 (30-110) U/L Lipase 109 (23-300) U/L Coronavirus (PCR) (Not Detectd) 07/23/21 07/23/21 Range/Units 21:54 21:54 WBC (3.8-10.6) k/uL RBC (3.80-5.40) m/uL Hgb (11.4-16.0) gm/dL Hct (34.0-46.0) % MCV (80.0-100.0) fL MCH (25.0-35.0) pg MCHC (31.0-37.0) g/dL RDW (11.5-15.5) % Plt Count (150-450) k/uL MPV Neutrophils % % Lymphocytes % % Monocytes % % Eosinophils % % Basophils % % Neutrophils # (1.3-7.7) k/uL Lymphocytes # (1.0-4.8) k/uL Monocytes # (0-1.0) k/uL Eosinophils # (0-0.7) k/uL Basophils # (0-0.2) k/uL Sodium (137-145) mmol/L Potassium (3.5-5.1) mmol/L Chloride (98-107) mmol/L Carbon Dioxide (22-30) mmol/L Anion Gap mmol/L BUN (7-17) mg/dL Creatinine (0.52-1.04) mg/dL Est GFR (CKD-EPI)AfAm (>60 ml/min/1.73 sqM) Est GFR (CKD-EPI)NonAf (>60 ml/min/1.73 sqM) Glucose (74-99) mg/dL Plasma Lactic Acid Ruben (0.7-2.0) mmol/L Calcium (8.4-10.2) mg/dL Total Bilirubin (0.2-1.3) mg/dL AST (14-36) U/L ALT (4-34) U/L Alkaline Phosphatase (38-126) U/L Troponin I <0.012 (0.000-0.034) ng/mL Total Protein (6.3-8.2) g/dL Albumin (3.5-5.0) g/dL Amylase (30-110) U/L Lipase (23-300) U/L Coronavirus (PCR) Not Detected (Not Detectd) Disposition Clinical Impression: Intractable nausea and vomiting, Ileus, Abdominal pain Disposition: ADMITTED IP TO THIS [facility] Condition: Fair Referrals: Derrell,Andrew, DO [Primary Care Provider] - 1-2 days
[2021-07-23 22:05] LABS: Basophils % (A) 1 %; Eosinophils # (A) 0.1 k/uL (0-0.7); Eosinophils % (A) 1 %; HCT 45.6 % (34.0-46.0); HGB 15.3 gm/dL (11.4-16.0); Lymphocytes # (A) 0.9 k/uL (1.0-4.8); Lymphocytes % (A) 11 %; MCH 29.8 pg (25.0-35.0); MCHC 33.5 g/dL (31.0-37.0); MCV 88.9 fL (80.0-100.0); Mean Platelet Volume 7.4; Monocytes # (A) 0.3 k/uL (0-1.0); Monocytes % (A) 4 %; Neutrophils % (A) 83 %; Platelet Count 357 k/uL (150-450); RBC 5.13 m/uL (3.80-5.40); RDW 13.4 % (11.5-15.5); WBC 8.4 k/uL (3.8-10.6)
[2021-07-23 22:18] LABS: ALT 21 U/L (4-34); AST 30 U/L (14-36); African American GFR (CKD) >90 (>60 ml/min/1.73 sqM); Albumin 4.3 g/dL (3.5-5.0); Alkaline Phosphatase 87 U/L (38-126); Amylase 40 U/L (30-110); Anion Gap 11 mmol/L; Blood Urea Nitrogen 20 mg/dL (7-17); Calcium 9.9 mg/dL (8.4-10.2); Carbon Dioxide 27 mmol/L (22-30); Chloride 99 mmol/L (98-107); Glucose 178 mg/dL (74-99); Lipase 109 U/L (23-300); Non-African American GFR(CKD) 83 (>60 ml/min/1.73 sqM); Potassium 4.4 mmol/L (3.5-5.1); Sodium 137 mmol/L (137-145); Total Bilirubin 0.6 mg/dL (0.2-1.3); Total Protein 6.8 g/dL (6.3-8.2)
[2021-07-23] MEDS ORDERED: METOCLOPRAMIDE 5 MG/ML 2 ML VIAL IVP STA (23:27)
--- NOTE | 2021-07-23 23:58 | CT ---
EXAMINATION TYPE: CT abdomen pelvis w con DATE OF EXAM: 07/23/2021 COMPARISON: None HISTORY: Abd Pain CT DLP: 821 mGycm Automated exposure control for dose reduction was used. CONTRAST: Performed with IV Contrast, patient injected with 100 mL of Isovue 300. Images obtained from the diaphragm to the floor the pelvis with IV contrast. There are some interstitial infiltrate and subsegmental atelectasis at the lung bases. Heart appears slightly enlarged and no pericardial effusion. There is no pleural effusion. Liver spleen and stomach pancreas appear intact. Flexor not dilated. There are clips from cholecystectomy. There is no adrenal mass. Kidneys show satisfactory contrast opacification. Delayed images show valdo l renal excretion. There is some cortical thinning in the right kidney that could relate to scarring. There is probably a 7 mm calculus lower pole right kidney. There is probably 1 mm calculi lower pole left kidney. There is no retroperitoneal adenopathy. Bladder distends smoothly. There is no inguinal hernia. There is no free fluid in the pelvis. There a re some mildly distended small bowel loops with fluid. Small bowel measures up to 2.7 cm. There is no ascites. Appendix is posterior and appears normal. There is no mesenteric edema. There is no free ai r. There is no ascites. There is a degenerative mild first-degree L4-5 spondylolisthesis. The bony pelvis is intact. The hip joints are intact. IMPRESSION: Mild subsegmental atelectasis at the lung bases. There is evidence for some mild small bowel ileus. N ormal appendix. Nonobstructing renal calculi. Ileus pattern appears new compared to old exam. Pulmonary abnormalities are new compared to old exam. Right renal cortical scarring unchanged. L4-5 spondylolisthesis without change.
[2021-07-24] MEDS ORDERED: HYDROmorphone 0.5 MG/0.5 ML SYRINGE IVP PRN (00:49)
[2021-07-24] MEDS ORDERED: NALOXONE 0.4 MG/ML 1 ML VIAL IV PRN (00:49)
[2021-07-24] MEDS ORDERED: ONDANSETRON 4 MG/2 ML VIAL IVP PRN (00:49)
[2021-07-24] MEDS: SODIUM CHLORIDE 0.9% 1,000 ML IV SCH ×2 (01:14→16:25)
[2021-07-24 01:34] LABS: Appearance,Urine Clear (Clear); Bilirubin,Urine Negative (Negative); Blood,Urine Negative (Negative); Color,Urine Light Yellow; Glucose,Urine (UA) Negative (Negative); Ketones,Urine 2+ (Negative); Leukocyte Esterase,Urine Negative (Negative); Nitrite,Urine Negative (Negative); PH, Urine 7.5 (5.0-8.0); Protein,Urine Negative (Negative); Specific Gravity,Urine 1.013 (1.001-1.035); Urobilinogen,Urine <2.0 mg/dL (<2.0)
--- NOTE | 2021-07-24 12:17 | P.GSCN ---
History of Present Illness Consult date: 07/24/21 Reason for Consult: Nausea, vomiting, abdominal pain History of present illness: This a 80-year-old female who was admitted through the emergency room with complaints of nausea vomiting abdominal pain. Patient states that she had several emesis last night. She currently states her pain is resolved. She denies any nausea. Her CAT scan shows possibility of ileus. Past Medical History Past Medical History: Cancer, CVA/TIA, Eye Disorder, Hearing Disorder / Deafness, Hyperlipidemia, Hypertension, Thyroid Disorder Additional Past Medical History / Comment(s): Glaucoma, hearing aids, hx Kidney stones, told hx "mini strokes," Heart Murmur, Cervical cancer 05/2020. Sm growt h found on thyroid, to have biopsy. History of Any Multi-Drug Resistant Organisms: None Reported Past Surgical History: Cholecystectomy, Hysterectomy Additional Past Surgical History / Comment(s): nephrostomy tube post kidney stone surgery. bilateral cataracts. D&C, hysteroscopy, polposcopy Past Anesthesia/Blood Transfusion Reactions: No Reported Reaction, Family History of Problems w/ Anesthesia Additional Past Anesthesia/Blood Transfusion Reaction / Comm: daughter stopped breathing during anesthesia Smoking Status: Former smoker - Past Family History Sister(s) Family Medical History: Cancer Additional Family Medical History / Comment(s): ONE SISTER LYMPHOMA, AND ONE WITH MULT MYELOMA Medications and Allergies Home Medications Medication Instructions Recorded Confirmed Type Aspirin [Adult Low Dose Aspirin EC] 81 tab PO HS 03/23/17 07/23/21 History Lisinopril-Hctz 10-12.5 mg 0.5 tab PO HS 03/23/17 07/23/21 History [Zestoretic 10-12.5] Ubidecarenone [Co Q-10] 100 mg PO AC-SUPPER 05/27/20 07/23/21 History Magnesium Oxide [Mag-Ox] 400 mg PO AC-SUPPER 07/23/21 07/23/21 History Multivit with Calcium,Iron,Min 1 tab PO AC-SUPPER 07/23/21 07/23/21 History [Women's Multivitamin] Pravastatin Sodium [Pravachol] 20 mg PO HS 07/23/21 07/23/21 History Allergies Allergy/AdvReac Type Severity Reaction Status Date / Time No Known Allergies Allergy Verified 07/23/21 22:36 Surgical - Exam Vital Signs Temp Pulse Resp BP Pulse Ox 97.1 F L 72 20 158/81 98 07/23/21 21:10 07/23/21 21:10 07/23/21 21:10 07/23/21 21:10 07/23/21 21:10 - General well developed, well nourished, no distress - Eyes PERRL - ENT normal pinna - Neck no masses - Respiratory normal expansion - Cardiovascular Rhythm: regular - Abdomen Abdomen: soft, non tender Results - Labs 07/23/21 21:54 07/23/21 21:54 Abnormal Lab Results - Last 24 Hours (Table) 07/23/21 07/23/21 07/24/21 Range/Units 21:54 21:54 00:12 Lymphocytes # 0.9 L (1.0-4.8) k/uL BUN 20 H (7-17) mg/dL Glucose 178 H (74-99) mg/dL Urine Ketones 2+ H (Negative) Diabetes panel 07/23/21 Range/Units 21:54 Sodium 137 (137-145) mmol/L Potassium 4.4 (3.5-5.1) mmol/L Chloride 99 (98-107) mmol/L Carbon Dioxide 27 (22-30) mmol/L BUN 20 H (7-17) mg/dL Creatinine 0.70 (0.52-1.04) mg/dL Glucose 178 H (74-99) mg/dL Calcium 9.9 (8.4-10.2) mg/dL AST 30 (14-36) U/L ALT 21 (4-34) U/L Alkaline Phosphatase 87 (38-126) U/L Total Protein 6.8 (6.3-8.2) g/dL Albumin 4.3 (3.5-5.0) g/dL Calcium panel 07/23/21 Range/Units 21:54 Calcium 9.9 (8.4-10.2) mg/dL Albumin 4.3 (3.5-5.0) g/dL Pituitary panel 07/23/21 Range/Units 21:54 Sodium 137 (137-145) mmol/L Potassium 4.4 (3.5-5.1) mmol/L Chloride 99 (98-107) mmol/L Carbon Dioxide 27 (22-30) mmol/L BUN 20 H (7-17) mg/dL Creatinine 0.70 (0.52-1.04) mg/dL Glucose 178 H (74-99) mg/dL Calcium 9.9 (8.4-10.2) mg/dL Adrenal panel 07/23/21 Range/Units 21:54 Sodium 137 (137-145) mmol/L Potassium 4.4 (3.5-5.1) mmol/L Chloride 99 (98-107) mmol/L Carbon Dioxide 27 (22-30) mmol/L BUN 20 H (7-17) mg/dL Creatinine 0.70 (0.52-1.04) mg/dL Glucose 178 H (74-99) mg/dL Calcium 9.9 (8.4-10.2) mg/dL Total Bilirubin 0.6 (0.2-1.3) mg/dL AST 30 (14-36) U/L ALT 21 (4-34) U/L Alkaline Phosphatase 87 (38-126) U/L Total Protein 6.8 (6.3-8.2) g/dL Albumin 4.3 (3.5-5.0) g/dL Assessment and Plan Assessment: Nausea vomiting may be related to ileus. Patient will be observed. We can start her on clear liquid diet.
[2021-07-24] MEDS: PANTOPRAZOLE 40 MG/10 ML VIAL IVP SCH ×2 (16:24→22:19)
[2021-07-24] MEDS: HEPARIN SODIUM,PORCINE/PF 5,000 UNIT/0.5 ML SYRINGE SQ SCH ×2 (16:25→22:19)
--- NOTE | 2021-07-24 16:53 | HP ---
HISTORY AND PHYSICAL CHIEF COMPLAINT: Abdominal pain. HISTORY OF PRESENT ILLNESS: This 80-year-old woman with a past medical history of multiple medical problems, including CVA, TIA, history of hypertension, hyperlipidemia, hypothyroidism, glaucoma, had a previous episode of pancreatitis. The patient was complaining of abdominal pain. This time the pain is mostly in the lower part of the abdomen. It was waxing and waning, with some nausea and vomiting. The patient came to [facility] and was admitted for evaluation and treatment. The patient had cholecystectomy previously. On admission, the white count was found to be normal. Lymphocytes are 0.9. COVID-19 was negative. The patient had some ketones. CT scan of the abdomen and pelvis, which was reviewed personally by me and done at the time of admission, showed mild subsegmental atelectasis of the lung base. Otherwise, some mild small bowel ileus was noted and the patient also had right renal cortical scarring. The was admitted for further evaluation and treatment. There is no history of any fever, rigors or chills. No history of headache, loss of consciousness, seizures. Surgical evaluation in progress at this time. PAST MEDICAL HISTORY: History of CVA, TIA, history of hypertension, hyperlipidemia, hypothyroidism. MEDICATIONS: Medications prior to admission include coenzyme Q, Pravachol, multivitamins, magnesium oxide, Zestoretic, aspirin. Doses are noted. ALLERGIES: NONE. FAMILY HISTORY: History of lymphoma in the family and multiple myeloma. SOCIAL HISTORY: Previous history of smoking. No history of alcohol intake. REVIEW OF SYSTEMS: ENT: No diminished hearing. No diminished vision. CARDIOVASCULAR SYSTEM: As mentioned earlier. RESPIRATORY SYSTEM: As mentioned earlier. GI: As mentioned earlier. : No dysuria. NERVOUS SYSTEM: No numbness, weakness. ALLERGY/IMMUNOLOGY: No asthma or hay fever. MUSCULOSKELETAL: As mentioned earlier. HEMATOLOGY/ONCOLOGY: No history of anemia. ENDOCRINE: No history of diabetes or hypothyroidism. CONSTITUTIONAL: As mentioned earlier. DERMATOLOGY: Negative. RHEUMATOLOGY: Negative. PSYCHIATRY: As mentioned earlier. PHYSICAL EXAMINATION: Patient alert and oriented x3. Pulse 67, blood pressure 124/56, respiration 18, temperature 97.3, pulse ox 96% on 2 L. HEENT: Conjunctivae normal. NECK: No jugular venous distention. CARDIOVASCULAR: S1, S2 muffled. RESPIRATION: Breath sounds diminished at the bases. A few scattered rhonchi. ABDOMEN: Soft. Mild diffuse discomfort in the upper part of the abdomen. No mass palpable. LEGS: No edema. No swelling. NERVOUS SYSTEM: Higher functions as mentioned earlier. Moves all 4 limbs. No focal motor or sensory deficit. LYMPHATICS: No lymph node palpable in neck, axillae or groin. SKIN: No ulcer, rash, bleeding. JOINTS: No active deforming arthropathy. LABS: CBC with lymphopenia. Other labs noted. ASSESSMENT: 1. Abdominal pain, possibly partial small bowel ileus. 2. Possible acute gastroenteritis. 3. Elevated random glucose. 4. Lymphopenia. 5. History of hearing deficit. 6. Hypertension. 7. Hyperlipidemia. 8. Hypothyroidism. 9. History of glaucoma. 10.History of kidney stones. 11.History of cholecystectomy. 12.History of hysterectomy. RECOMMENDATIONS AND DISCUSSION: At this time I recommend to continue current medications, continue with the monitoring, symptomatic treatment. Otherwise, continue with current medical management. Repeat labs. Surgical evaluation noted. Patient is on clear liquids. Amylase and lipase are normal. Will repeat a CMP also tomorrow. Further recommendations to follow. Symptomatic treatment provided. See orders for further details. A copy of this dictation is being forwarded to Dr. Andrew Dove, who is the primary physician. MMODL / IJN: [id number] / [facility]
[2021-07-24] MEDS ORDERED: MAGNESIUM OXIDE 400 MG TAB PO SCH (17:30)
[2021-07-24] MEDS ORDERED: NON FORMULARY DRUG (Ubidecarenone [Co Q-10] 100 MG Capsule) PO SCH (17:30)
[2021-07-24] MEDS ORDERED: MULTIVITAMINS, THERA 1 EACH TAB PO SCH (17:30)
[2021-07-24] MEDS ORDERED: PRAVASTATIN SODIUM 20 MG TAB PO SCH (21:00)
[2021-07-24] MEDS ORDERED: LISINOPRIL-HCTZ 10-12.5 MG 1 EACH TAB PO SCH (21:00)
[2021-07-25 07:00] LABS: Basophils % (A) 1 %; Eosinophils # (A) 0.1 k/uL (0-0.7); Eosinophils % (A) 2 %; HCT 38.9 % (34.0-46.0); Lymphocytes # (A) 0.7 k/uL (1.0-4.8); Lymphocytes % (A) 14 %; MCH 29.8 pg (25.0-35.0); MCHC 33.3 g/dL (31.0-37.0); MCV 89.4 fL (80.0-100.0); Mean Platelet Volume 7.4; Monocytes # (A) 0.3 k/uL (0-1.0); Monocytes % (A) 6 %; Neutrophils # (A) 3.9 k/uL (1.3-7.7); Neutrophils % (A) 77 %; Platelet Count 254 k/uL (150-450); RBC 4.35 m/uL (3.80-5.40); RDW 12.9 % (11.5-15.5); WBC 5.1 k/uL (3.8-10.6)
[2021-07-25] MEDS: SODIUM CHLORIDE 0.9% 1,000 ML IV SCH (07:25)
[2021-07-25] MEDS: PANTOPRAZOLE 40 MG/10 ML VIAL IVP SCH (07:26)
[2021-07-25] MEDS: HEPARIN SODIUM,PORCINE/PF 5,000 UNIT/0.5 ML SYRINGE SQ SCH (07:26)
[2021-07-25 08:13] VITALS: TEMP 98.3
[2021-07-25 09:36] LABS: African American GFR (CKD) 99.2 (60.0-200.0); Albumin 3.6 g/dL (3.8-4.9); Albumin/Globulin Ratio 2.05 (1.60-3.17); Anion Gap 10.1 mmol/L (10.00-18.00); BUN/Creat Ratio 24.24 Ratio (12.00-20.00); Blood Urea Nitrogen 15.1 mg/dL (9.0-27.0); Calcium 8.9 mg/dL (8.7-10.3); Carbon Dioxide 26.5 mmol/L (20.0-27.5); Globulin 1.8 g/dL (1.6-3.3); Non-African American GFR(CKD) 85.6 (60.0-200.0); Total Bilirubin 0.3 mg/dL (0.30-1.20); Total Protein 5.4 g/dL (6.2-8.2)
[2021-07-25 11:58] VITALS: BP 133/65; PULSE 69; RESP 16
--- NOTE | 2021-07-25 12:52 | P.PN ---
Subjective Progress Note Date: 07/25/21 CHIEF COMPLAINT: Ileus HISTORY OF PRESENT ILLNESS: Surgical service following regards to patient's ileus. She is now having bowel movements. Her abdominal pain is improved. She is tolerating clear liquid diet. She is having flatus. Afebrile. WBC is 5.1 Hgb is 13 platelets 254 PHYSICAL EXAM: VITAL SIGNS: Reviewed. GENERAL: Well-developed in no acute distress. HEENT: No sclera icterus. Extraocular movements grossly intact. Moist buccal mucosa. Head is atraumatic, normocephalic. ABDOMEN: Soft. Nondistended. Nontender. NEUROLOGIC: Alert and oriented. Cranial nerves II through XII grossly intact. ASSESSMENT: 1. Ileus. Nausea, vomiting and abdominal pain likely secondary to patient's ileus. Symptoms resolved PLAN: -Patient has shown improvement -Patient can be discharged surgical standpoint -Patient to follow-up with Dr. Dallas in office next week Physician Stain Remover note has been reviewed by physician. Signing provider agrees with the documented findings, assessment, and plan of care. Objective - Vital Signs Vital signs: Vital Signs Temp 98.3 F 07/25/21 05:00 Pulse 69 07/25/21 11:53 Resp 16 07/25/21 11:53 BP 133/65 07/25/21 11:53 Pulse Ox 98 07/25/21 11:53 Intake & Output 07/24/21 07/25/21 07/25/21 18:59 06:59 18:59 Intake Total 240 Balance 240 Weight 70.307 kg Intake: Oral 240 Other: # Voids 4 1 # Bowel Movements 1 - Labs CBC & Chem 7: 07/25/21 06:22 07/25/21 06:22 Labs: Abnormal Lab Results - Last 24 Hours (Table) 07/25/21 07/25/21 Range/Units 06:22 06:22 Lymphocytes # 0.7 L (1.0-4.8) k/uL BUN/Creatinine Ratio 24.24 H (12.00-20.00) Ratio Total Protein 5.4 L (6.2-8.2) g/dL Albumin 3.6 L (3.8-4.9) g/dL
--- NOTE | 2021-07-26 06:40 | DS ---
DISCHARGE SUMMARY DATE OF SERVICE: 07/25/2021. FINAL DIAGNOSES: 1. Abdominal pain possibly partial small bowel obstruction ileus. 2. Possible acute gastroenteritis. 3. Elevated random glucose. 4. Lymphopenia. 5. History of hearing deficit. 6. Hypertension. 7. Hyperlipidemia. 8. Hypothyroidism. 9. History of glaucoma. 10.History of kidney stones. 11.History of cholecystectomy. 12.History of hysterectomy. DISCHARGE DISPOSITION: Patient being discharge in stable condition with guarded prognosis. HISTORY OF PRESENT ILLNESS: This 80-year-old woman with a past medical history of multiple medical problems admitted with abdominal pain and distention. Patient had abdomen and pelvis CAT scan. The patient was seen by surgery and surgery clear the patient. The patient is able to tolerate diet and the patient being discharged in stable condition with guarded prognosis with the following advice and medications: 1. Diet is soft, low residue as tolerated. 2. Activity limited until follow up. 3. Followup with Dr. Dallas in 2-3 days. 4. Follow up with Dr. Andrew Dove as recommended. MEDICATIONS: 1. Ecotrin 81 mg daily. 2. Coenzyme-Q 100 mg. 3. mag oxidw 4. Pravachol 20 mg q.h.s. 5. Multivitamins. 6.lisinopril as before Once again, patient will be discharged in stable condition with guarded prognosis. MMODL / BRIANN: [id number] / MTDD
== END 2021-07-25 13:46 | disposition home or self-care (01) | DRG 389 ==
LOC: EC 21:07 → 5NMEDONC 07-24 00:50
PROVIDERS: ADMIT Internal Medicine; ATTEND Internal Medicine
DX: K56.7 Ileus, unspecified (principal); J98.11 Atelectasis; K86.1 Other chronic pancreatitis; K52.9 Noninfective gastroenteritis and colitis, unspecified; I10 Essential (primary) hypertension; D72.810 Lymphocytopenia; E03.9 Hypothyroidism, unspecified; Z20.822 Contact with and (suspected) exposure to COVID-19; E78.5 Hyperlipidemia, unspecified; R11.2 Nausea with vomiting, unspecified; H91.90 Unspecified hearing loss, unspecified ear; Z79.82 Long term (current) use of aspirin; Z79.899 Other long term (current) drug therapy; Z85.41 Personal history of malignant neoplasm of cervix uteri; Z86.73 Personal history of transient ischemic attack (TIA), and cerebral infarction without residual deficits; Z87.442 Personal history of urinary calculi; Z87.891 Personal history of nicotine dependence; Z90.49 Acquired absence of other specified parts of digestive tract; Z90.710 Acquired absence of both cervix and uterus; Z80.7 Family history of other malignant neoplasms of lymphoid, hematopoietic and related tissues; Z79.890 Hormone replacement therapy
CPT/HCPCS: 36415; 74177; 80053; 81003; 82150; 83605; 83690; 84484; 85025; 87635; 93005; 96361; 96374; 96375; 99285

== ENCOUNTER → 2022-07-28 | Outpatient (CLI) | payer MEDICARE, BC ==
--- NOTE | 2022-07-31 07:43 | MM ---
Reason for Exam: Screening (asymptomatic). Last mammogram was performed 6 year(s) and 0 month(s) ago. Patient History: Menarche at age 12. First Full-Term at age 21. Postmenopausal. Previous chemotherapy at age 79. Patient used Hormonal Contraceptives for 5 years. Risk Values: Amelia 5 year model risk: 1.6%. NCI Lifetime model risk: 2.5%. Prior Study Comparison: 11/29/2010 Bilateral Diagnostic Mammogram, [facility]. 11/29/2010 Left Diagnostic Ultrasound, [facility]. 08/02/2016 Bilateral Screening Mammogram, [facility]. Tissue Density: The breast tissue is heterogeneously dense. This may lower the sensitivity of mammography. Findings: Analyzed By CAD. Benign appearing vascular calcification has increased in prominence from prior mammogram. There is no suspicious group of microcalcifications or new suspicious mass in either breast. Overall Assessment: Negative, BI-RAD 1 Management: Screening Mammogram of both breasts in 1 year. Some advise bilateral breast ultrasound surveillance in patients with background dense tissue. A clinical breast exam by your physician is recommended on an annual basis and results should be correlated with mammographic findings. Electronically signed and approved by: Abe Moss M.D.
== END | disposition home or self-care (01) ==
LOC: RADMAMWWP 09:11
PROVIDERS: ATTEND Family Medicine
DX: Z12.31 Encounter for screening mammogram for malignant neoplasm of breast (principal); Z78.0 Asymptomatic menopausal state
CPT/HCPCS: 77063; 77067

== ENCOUNTER 2022-08-07 06:13 | Day surgery (SDC) | payer MEDICARE, BC ==
[~2022-08-07 06:13] MED LIST changes: -HEPARIN SODIUM,PORCINE 5,000 UNIT/ML 1 ML VIAL SQ PRN; +HEPARIN SODIUM,PORCINE/PF 5,000 UNIT/0.5 ML SYRINGE SQ PRN; +HYDROmorphone 0.5 MG/0.5 ML SYRINGE IVP PRN; +LACTATED RINGERS 1,000 ML IV SCH; +LIDOCAINE 1% (10MG/ML) FOR IV START INTRADERMA PRN; +ONDANSETRON 4 MG/2 ML VIAL IVP ONE; -Pre Op ABX Message 1 EACH MISC MISCELLANE ONE
[2022-08-07 07:08] VITALS: TEMP 98
[2022-08-07] MEDS ORDERED: PROPOFOL 10 MG/ML 20 ML VIAL IV ONE (07:22)
[2022-08-07] MEDS ORDERED: fentaNYL (PF) 50 MCG/ML 2 ML AMP ONE (07:22)
[2022-08-07] MEDS ORDERED: LIDOCAINE 1% INJ 10MG/ML (10 ML MDV) SQ ONE ×3 (07:23→07:43)
--- NOTE | 2022-08-07 07:23 | P.GSHP ---
History of Present Illness H&P Date: 08/07/22 Chief Complaint: Cervical cancer 81-year-old female here today for Port-A-Cath removal. Patient had a port placed about 2 years ago. Worked well when it was needed. She says she hasn't used it for the last year or so. Past Medical History Past Medical History: Cancer, CVA/TIA, Eye Disorder, Hearing Disorder / Deafness, Hyperlipidemia, Hypertension, Thyroid Disorder Additional Past Medical History / Comment(s): 06/2020 cervical cancer with surgery/radiation/chemo, "mini" strokes, pancreatitis associated with GB disease, nephrolithiasis/surgically removed, bilateral [place]/aides, benign growth on thyroid, diverticular disease, murmur, bilateral eye glaucoma. History of Any Multi-Drug Resistant Organisms: None Reported Past Surgical History: Cholecystectomy, Hysterectomy Additional Past Surgical History / Comment(s): D&C, hysterectomy/BSO, lithotripsy/nephrostomy tube, colonoscopy, thyroid biopsy, bilateral cataract removals, port placement for chemo. Past Anesthesia/Blood Transfusion Reactions: Family History of Problems w/ Anesthesia, Postoperative Nausea & Vomiting (PONV) Additional Past Anesthesia/Blood Transfusion Reaction / Comment(s): daughter stopped breathing during anesthesia Past Psychological History: No Psychological Hx Reported Additional Psychological History / Comment(s): Pt resides alone and is indpendent. Smoking Status: Former smoker Past Alcohol Use History: Rare Additional Past Alcohol Use History / Comment(s): Pt started smoking in 1960 and quit in 1990 Past Drug Use History: None Reported - Past Family History Mother Family Medical History: CVA/TIA, Diabetes Mellitus, Hypertension Father Family Medical History: No Reported History Additional Family Medical History / Comment(s): Father was healthy Sister(s) Family Medical History: Cancer Additional Family Medical History / Comment(s): ONE SISTER LYMPHOMA, AND ONE WITH MULT MYELOMA Medications and Allergies Home Medications Medication Instructions Recorded Confirmed Type Aspirin [Adult Low Dose Aspirin EC] 81 tab PO HS 03/23/17 08/02/22 History Lisinopril-Hctz 10-12.5 mg 1 tab PO HS 03/23/17 08/02/22 History [Zestoretic 10-12.5] Ubidecarenone [Co Q-10] 100 mg PO AC-SUPPER 05/27/20 08/02/22 History Magnesium Oxide [Mag-Ox] 400 mg PO AC-SUPPER 07/23/21 08/02/22 History Multivit with Calcium,Iron,Min 1 tab PO AC-SUPPER 07/23/21 08/02/22 History [Women's Multivitamin] Pravastatin Sodium [Pravachol] 20 mg PO HS 07/23/21 08/02/22 History Hydroxychloroquine Sulfate 200 mg PO BID 08/02/22 08/02/22 History Pravastatin Sodium [Pravachol] 1 tab PO HS 08/02/22 08/02/22 History Allergies Allergy/AdvReac Type Severity Reaction Status Date / Time No Known Allergies Allergy Verified 08/02/22 14:48 Surgical - Exam Vital Signs Temp Pulse Resp BP Pulse Ox 98 F 81 20 158/71 96 08/07/22 07:06 08/07/22 07:06 08/07/22 07:06 08/07/22 07:06 08/07/22 07:06 Physical exam: General: Well-developed, well-nourished HEENT: Normocephalic, sclerae nonicteric Abdomen: Nontender, nondistended Extremities: No edema Neuro: Alert and oriented Assessment and Plan (1) Cervical cancer Narrative/Plan: Will proceed with Port-A-Cath removal at this time. Current Visit: No Status: Acute Code(s): C53.9 - MALIGNANT NEOPLASM OF CERVIX UTERI, UNSPECIFIED SNOMED Code(s): 265429854
[2022-08-07] MEDS ORDERED: ACETAMINOPHEN TAB 325 MG TAB PO PRN (08:04)
[2022-08-07] MEDS ORDERED: NALOXONE 0.4 MG/ML 1 ML VIAL IV PRN (08:04)
[2022-08-07] MEDS ORDERED: traMADol 50 MG TAB PO PRN (08:04)
--- NOTE | 2022-08-07 08:05 | P.OP ---
Date of Procedure: 08/07/22 Procedure(s) Performed: PREOPERATIVE DIAGNOSIS: Cervical cancer POSTOPERATIVE DIAGNOSIS: Same PROCEDURE: Port-A-Cath removal SURGEON: Edelmira EBL: Minimal ANESTHESIA: Sedation COMPLICATIONS: None OPERATIVE PROCEDURE: Patient was placed in the supine position. The patient was sedated per anesthesia that time. The chest was prepped and draped in the usual sterile fashion. The skin was localized with Marcaine solution. The previous incision was re-incised using a scalpel. The port was easily excised using accommodation of blunt dissection sharp dissection and electrocautery. The subcutaneous tissues were reapproximated using 3-0 Vicryl sutures. The skin was reapproximated using 4-0 Monocryl sutures. Skin glue was then applied. DISPOSITION: Stable to recovery room
[2022-08-07 08:14] VITALS: RESP 16
[2022-08-07 08:37] VITALS: BP 140/62; PULSE 57
== END 2022-08-07 08:56 | disposition home or self-care (01) ==
LOC: OR 06:13
PROVIDERS: ATTEND Surgery
DX: C53.9 Malignant neoplasm of cervix uteri, unspecified (principal); I10 Essential (primary) hypertension; E78.5 Hyperlipidemia, unspecified; E07.9 Disorder of thyroid, unspecified; H91.90 Unspecified hearing loss, unspecified ear; H57.9 Unspecified disorder of eye and adnexa; K91.0 Vomiting following gastrointestinal surgery; F10.90 Alcohol use, unspecified, uncomplicated; Z87.442 Personal history of urinary calculi; Z86.73 Personal history of transient ischemic attack (TIA), and cerebral infarction without residual deficits; Z90.49 Acquired absence of other specified parts of digestive tract; Z79.899 Other long term (current) drug therapy; Z98.890 Other specified postprocedural states; Z98.41 Cataract extraction status, right eye; Z98.42 Cataract extraction status, left eye; Z90.710 Acquired absence of both cervix and uterus; Z90.722 Acquired absence of ovaries, bilateral; Z87.891 Personal history of nicotine dependence; Z82.49 Family history of ischemic heart disease and other diseases of the circulatory system; Z83.3 Family history of diabetes mellitus; Z79.82 Long term (current) use of aspirin
CPT/HCPCS: 36590; J0690; J2405; J3010; J2001; J2704; J1644

== ENCOUNTER 2022-10-19 04:00 | Inpatient (IN) | payer MEDICARE, BC ==
[2022-10-19] MEDS ORDERED: PANTOPRAZOLE 40 MG/10 ML VIAL IVP STA ×2 (04:15→05:07)
--- NOTE | 2022-10-19 04:33 | ED ---
General Adult HPI - General Chief complaint: GI Bleed Stated complaint: Rectal Bleeding Time Seen by Provider: 10/19/22 04:04 Source: patient, RN notes reviewed, old records reviewed Mode of arrival: ambulatory - History of Present Illness Initial comments: 81-year-old female presents for evaluation of rectal bleeding. Patient has had several episodes of bright red blood per rectum which began several hours prior to arrival. Patient states this was associated with crampy abdominal pain. There was several episodes of blood without stool. No significant abdominal pain in between these episodes. No vomiting. Patient does not feel lightheaded or dizzy. No chest pain. No anticoagulation. Patient states that his been many years since her last colonoscopy but does not recall any abnormality. - Related Data Home Medications Medication Instructions Recorded Confirmed Aspirin [Adult Low Dose Aspirin EC] 81 tab PO HS 03/23/17 08/02/22 Lisinopril-Hctz 10-12.5 mg 1 tab PO HS 03/23/17 08/02/22 [Zestoretic 10-12.5] Ubidecarenone [Co Q-10] 100 mg PO AC-SUPPER 05/27/20 08/02/22 Magnesium Oxide [Mag-Ox] 400 mg PO AC-SUPPER 07/23/21 08/02/22 Multivit with Calcium,Iron,Min 1 tab PO AC-SUPPER 07/23/21 08/02/22 [Women's Multivitamin] Pravastatin Sodium [Pravachol] 20 mg PO HS 07/23/21 08/02/22 Hydroxychloroquine Sulfate 200 mg PO BID 08/02/22 08/02/22 Pravastatin Sodium [Pravachol] 1 tab PO HS 08/02/22 08/02/22 Allergies Allergy/AdvReac Type Severity Reaction Status Date / Time No Known Allergies Allergy Verified 10/19/22 04:12 Review of Systems ROS Statement: Those systems with pertinent positive or pertinent negative responses have been documented in the HPI. ROS Other: All systems not noted in ROS Statement are negative. Past Medical History Past Medical History: Cancer, CVA/TIA, Eye Disorder, Hearing Disorder / Deafness, Hyperlipidemia, Hypertension, Thyroid Disorder Additional Past Medical History / Comment(s): 06/2020 cervical cancer with surgery/radiation/chemo, "mini" strokes, pancreatitis associated with GB disease, nephrolithiasis/surgically removed, bilateral [place]/aides, benign growth on thyroid, diverticular disease, murmur, bilateral eye glaucoma. History of Any Multi-Drug Resistant Organisms: None Reported Past Surgical History: Cholecystectomy, Hysterectomy Additional Past Surgical History / Comment(s): D&C, hysterectomy/BSO, lithotr ipsy/nephrostomy tube, colonoscopy, thyroid biopsy, bilateral cataract removals, port placement for chemo. port removed 2022 Past Anesthesia/Blood Transfusion Reactions: Family History of Problems w/ Anesthesia, Postoperative Nausea & Vomiting (PONV) Additional Past Anesthesia/Blood Transfusion Reaction / Comment(s): daughter stopped breathing during anesthesia Past Psychological History: No Psychological Hx Reported Smoking Status: Former smoker Past Alcohol Use History: Rare Past Drug Use History: None Reported - Past Family History Mother Family Medical History: CVA/TIA, Diabetes Mellitus, Hypertension Father Family Medical History: No Reported History Additional Family Medical History / Comment(s): Father was healthy Sister(s) Family Medical History: Cancer Additional Family Medical History / Comment(s): ONE SISTER LYMPHOMA, AND ONE WITH MULT MYELOMA General Exam General appearance: alert, in no apparent distress Head exam: Present: atraumatic, normocephalic Eye exam: Present: normal appearance, PERRL ENT exam: Present: normal exam Neck exam: Present: normal inspection. Absent: tenderness, meningismus Respiratory exam: Present: normal lung sounds bilaterally. Absent: respiratory distress, wheezes Cardiovascular Exam: Present: regular rate, normal rhythm GI/Abdominal exam: Present: soft. Absent: distended, tenderness, guarding, rebound Rectal exam: Present: hemorrhoids (Nonbleeding) Extremities exam: Present: normal inspection, normal capillary refill. Absent: pedal edema Neurological exam: Present: alert, oriented X3, CN II-XII intact. Absent: motor sensory deficit Psychiatric exam: Present: normal affect, normal mood Skin exam: Present: warm, dry, intact, normal color. Absent: cyanosis, diaphoretic Course Vital Signs 10/19/22 10/19/22 04:07 05:16 Temperature 97.7 F Pulse Rate 104 H 70 Respiratory 18 18 Rate Blood Pressure 161/82 137/63 O2 Sat by Pulse 98 98 Oximetry EKG Findings - EKG Comments: EKG Findings:: EKG: Normal sinus rhythm rate of [address] segment elevation VA interval 139, QRS duration 100, QTC 379 Medical Decision Making - Medical Decision Making Was pt. sent in by a medical professional or institution (, [facility], [facility], urgent care, hospital, or snf...) When possible be specific @ -[No] Did you speak to anyone other than the patient for history (EMS, parent, family, police, friend...)? What history was obtained from this source @ -[No] Did you review nursing and triage notes (agree or disagree)? Why? @ -[I reviewed and agree with nursing and triage notes] Were old charts reviewed (outside hosp., previous admission, EMS record, old EKG, old radiological studies, urgent care reports/EKG's, snf records)? Report findings @ -Previous hemoglobin levels, previous surgical documentation Differential Diagnosis (chest pain, altered mental status, abdominal pain women, abdominal pain men, vaginal bleeding, weakness, fever, dyspnea, syncope, headache, dizziness, GI bleed, back pain, seizure, CVA, palpatations, mental health, musculoskeletal)? @ -[Differential GI Bleed: Esophageal varices, aortoenteric fistula, Gela-Mcmillan, gastritis, peptic ulcer disease, diverticulosis, inflammatory bowel disease, hemorrhoids, fissure, colitis, malignancy, Meckels diverticulum, this is not meant to be an all- inclusive list. EKG interpreted by me (3pts min.). @ -[As above] X-rays interpreted by me (1pt min.). @ -[None done] CT interpreted by me (1pt min.). @ -[None done] U/S interpreted by me (1pt. min.). @ -[None done] What testing was considered but not performed or refused? (CT, X-rays, U/S, labs)? Why? @ -[None] What meds were considered but not given or refused? Why? @ -[None] Did you discuss the management of the patient with other professionals (professionals i.e. [facility] Monson, [facility], lab, RT, psych nurse, social scientist, mental health program manager, t eacher, chief merchandising officer, renal case manager)? Give summary @ -Case discussed with the admitting physician and Dr. Hickey covering for general surgery Was smoking cessation discussed for >3mins.? @ -[No] Was critical care preformed (if so, how long)? @ -[No] Were there social determinants of health that impacted care today? How? (Homelessness, low income, unemployed, alcoholism, drug addiction, transportation, low edu. Level, literacy, decrease access to med. care, care home, rehab)? @ -[No] Was there de-escalation of care discussed even if they declined (Discuss DNR or withdrawal of care, Hospice)? DNR status @ -[No] What co-morbidities impacted this encounter? (DM, HTN, Smoking, COPD, CAD, Cancer, CVA, ARF, Chemo, Hep., AIDS, mental health diagnosis, sleep apnea, morbid obesity)? @ Prior cervical cancer Was patient admitted / discharged? Hospital course, mention meds given and route, prescriptions, significant lab abnormalities, going to OR and other pertinent info. @ -[-81-year-old female presenting with lower GI bleed. Vital signs are stable. Initial hemoglobin 13.8. Patient has no abdominal tenderness on exam patient has a mild crampy abdominal pain associated with each episodes of hematochezia. She will be admitted for serial hemoglobin testing and general surgery consultation. She is admitted to monitored bed.] Undiagnosed new problem with uncertain prognosis? @ -[No] Drug Therapy requiring intensive monitoring for toxicity (Heparin, Nitro, Insulin, Cardizem)? @ -[No] Were any procedures done? @ -[No] Diagnosis/symptom? @ -[Lower GI bleed] Acute, or Chronic, or Acute on Chronic? @ -[Acute] Uncomplicated (without systemic symptoms) or Complicated (systemic symptoms)? @ -[Complicated] Side effects of treatment? @ -[No] Exacerbation, Progression, or Severe Exacerbation? @ -[No] Poses a threat to life or bodily function? How? (Chest pain, [place], [place], pneumonia, PE, COPD, DKA, ARF, appy, cholecystitis, CVA, Diverticulitis, Homicidal, Suicidal, threat to staff... and all critical care pts) @ -[Yes, worsening lower GI bleed, hemorrhagic shock - Lab Data Result diagrams: 10/19/22 04:34 10/19/22 04:34 Lab Results 10/19/22 10/19/22 10/19/22 Range/Units 04:34 04:34 04:34 WBC 5.6 (3.8-10.6) k/uL RBC 4.50 (3.80-5.40) m/uL Hgb 13.9 (11.4-16.0) gm/dL Hct 38.4 (34.0-46.0) % MCV 85.2 (80.0-100.0) fL MCH 30.6 (25.0-35.0) pg MCHC 36.1 (31.0-37.0) g/dL RDW 13.3 (11.5-15.5) % Plt Count 202 (150-450) k/uL MPV 9.0 Neutrophils % 74 % Lymphocytes % 16 % Monocytes % 5 % Eosinophils % 2 % Basophils % 1 % Neutrophils # 4.1 (1.3-7.7) k/uL Lymphocytes # 0.9 L (1.0-4.8) k/uL Monocytes # 0.3 (0-1.0) k/uL Eosinophils # 0.1 (0-0.7) k/uL Basophils # 0.0 (0-0.2) k/uL PT 10.8 (9.0-12.0) sec INR 1.0 (<1.2) APTT 22.2 (22.0-30.0) sec Sodium 137 (137-145) mmol/L Potassium 3.4 L (3.5-5.1) mmol/L Chloride 100 (98-107) mmol/L Carbon Dioxide 27 (22-30) mmol/L Anion Gap 10 mmol/L BUN 13 (7-17) mg/dL Creatinine 0.72 (0.52-1.04) mg/dL Est GFR (CKD-EPI)AfAm >90 (>60 ml/min/1.73 sqM) Est GFR (CKD-EPI)NonAf 80 (>60 ml/min/1.73 sqM) Glucose 118 H (74-99) mg/dL Calcium 9.4 (8.4-10.2) mg/dL Magnesium 1.7 (1.6-2.3) mg/dL Total Bilirubin 0.9 (0.2-1.3) mg/dL AST 33 (14-36) U/L ALT 23 (4-34) U/L Alkaline Phosphatase 65 (38-126) U/L Total Protein 6.5 (6.3-8.2) g/dL Albumin 4.3 (3.5-5.0) g/dL Disposition Clinical Impression: Hematochezia Disposition: ADMITTED IP TO THIS HOSP Condition: Stable Is patient prescribed a controlled substance at d/c from ED?: No Referrals: Andrew Dove DO [Primary Care Provider] - 1-2 days Time of Disposition: 06:06
[2022-10-19 04:42] LABS: Basophils % (A) 1 %; Eosinophils # (A) 0.1 k/uL (0-0.7); Eosinophils % (A) 2 %; HCT 38.4 % (34.0-46.0); Lymphocytes # (A) 0.9 k/uL (1.0-4.8); Lymphocytes % (A) 16 %; MCV 85.2 fL (80.0-100.0); Monocytes # (A) 0.3 k/uL (0-1.0); Monocytes % (A) 5 %; Neutrophils # (A) 4.1 k/uL (1.3-7.7); Neutrophils % (A) 74 %; Platelet Count 202 k/uL (150-450); RDW 13.3 % (11.5-15.5); WBC 5.6 k/uL (3.8-10.6)
[2022-10-19 04:44] LABS: HGB 13.9 gm/dL (11.4-16.0)
[2022-10-19 04:45] LABS: MCH 30.6 pg (25.0-35.0); MCHC 36.1 g/dL (31.0-37.0)
[2022-10-19 04:51] LABS: Partial Thromboplastin Time 22.2 sec (22.0-30.0); Prothrombin Time 10.8 sec (9.0-12.0)
[2022-10-19] MEDS: SODIUM CHLORIDE 0.9% 1,000 ML IV SCH (05:12)
[2022-10-19 05:34] LABS: ALT 23 U/L (4-34); AST 33 U/L (14-36); African American GFR (CKD) >90 (>60 ml/min/1.73 sqM); Albumin 4.3 g/dL (3.5-5.0); Alkaline Phosphatase 65 U/L (38-126); Anion Gap 10 mmol/L; Blood Urea Nitrogen 13 mg/dL (7-17); Calcium 9.4 mg/dL (8.4-10.2); Carbon Dioxide 27 mmol/L (22-30); Chloride 100 mmol/L (98-107); Glucose 118 mg/dL (74-99); Magnesium 1.7 mg/dL (1.6-2.3); Non-African American GFR(CKD) 80 (>60 ml/min/1.73 sqM); Potassium 3.4 mmol/L (3.5-5.1); Sodium 137 mmol/L (137-145); Total Bilirubin 0.9 mg/dL (0.2-1.3); Total Protein 6.5 g/dL (6.3-8.2)
[2022-10-19] MEDS ORDERED: ACETAMINOPHEN TAB 325 MG TAB PO PRN (06:01)
[2022-10-19] MEDS ORDERED: NALOXONE 0.4 MG/ML 1 ML VIAL IV PRN (06:01)
[2022-10-19] MEDS ORDERED: POTASSIUM CHLORIDE ER 20 MEQ TAB.ER PO STA (06:38)
--- NOTE | 2022-10-19 07:36 | P.HPIM ---
History of Present Illness A pleasant 83 years old female with past medical history of CVA/TIA, Hearing Disorder / Deafness, Hyperlipidemia, Hypertension, hypothyroidism, 06/2020 cervical cancer with surgery/radiation/chemo, "mini" strokes, pancreatitis asso ciated with GB disease, nephrolithiasis/surgically removed, bilateral [place]/aides, benign growth on thyroid, diverticular disease, murmur, bilateral eye glaucoma. Patient presents because of rectal bleeding, few episodes since yesterday. Patient stated that she has 3 bouts of loose bowel movement, this happened yesterday followed by frequent episodes of bleeding per rectum about every 3-4 hours, however no bowel movements since then. Also she is complaining of from abdominal cramps as she describes in the lower abdomen, nonradiating about 5/10 in severity. Associated with decreased appetite but no nausea vomiting. No chest pain or dyspnea or coughing. No headache dizziness weakness or numb ness, no urinary symptoms. She denies smoking alcohol or illicit drugs. She states she finished her chemo and radiotherapy for her history of cervical cancer about 2 years ago and that she follows up with oncologist out of town as well as Dr. Berrios in the town. She states she is on baby aspirin for the last 3 years because she has stroke found in her computed tomography scan of the brain but really she did not complain from any symptoms at that time or then or currently. Discussed with her the importance of holding aspirin and risks including but not limited to stroke and heart disease and she agrees to hold for now. Patient denies any recent NSAID use Patient is vitals stable and no tachycardia Hemoglobin is 13.9, rest of CBC is unremarkable except for lymphocyte 0.9 which is moderately low, INR normal 1.0. BMP and liver enzymes were unremarkable. EKG showing normal sinus rhythm at [address]-T changes and 50 mL 79 Emergency room started on normal saline 75 mL/h and received IV Protonix Review of Systems Review of systems CONSTITUTIONAL: No fever, no malaise, no fatigue. HEENT: No recent visual problems or hearing problems. Denied any sore throat. CARDIOVASCULAR: No orthopnea, PND, no palpitations, no syncope. PULMONARY: No shortness of breath, no cough, no hemoptysis. GASTROINTESTINAL: No diarrhea, no nausea, no vomiting, Normoactive bowel sounds. NEUROLOGICAL: No headaches, no weakness, no numbness. HEMATOLOGICAL: Denies an enlarged spleen with liver or petechiae. GENITOURINARY: Denies any burning micturition, frequency, or urgency. MUSCULOSKELETAL/RHEUMATOLOGICAL: Denies any joint pain, swelling, or any muscle pain. ENDOCRINE: Denies any polyuria or polydipsia. Past Medical History Past Medical History: Cancer, CVA/TIA, Eye Disorder, Hearing Disorder / Deafness, Hyperlipidemia, Hypertension, Thyroid Disorder Additional Past Medical History / Comment(s): 06/2020 cervical cancer with surgery/radiation/chemo, "mini" strokes, pancreatitis associated with GB disease, nephrolithiasis/surgically removed, bilateral [place]/aides, benign growth on thyroid, diverticular disease, murmur, bilateral eye glaucoma. History of Any Multi-Drug Resistant Organisms: None Reported Past Surgical History: Cholecystectomy, Hysterectomy Additional Past Surgical History / Comment(s): D&C, hysterectomy/BSO, lithotripsy/nephrostomy tube, colonoscopy, thyroid biopsy, bilateral cataract removals, port placement for chemo. port removed 2022 Past Anesthesia/Blood Transfusion Reactions: Family History of Problems w/ Anesthesia, Postoperative Nausea & Vomiting (PONV) Additional Past Anesthesia/Blood Transfusion Reaction / Comment(s): daughter stopped breathing during anesthesia Past Psychological History: No Psychological Hx Reported Smoking Status: Former smoker Past Alcohol Use History: Rare Past Drug Use History: None Reported - Past Family History Mother Family Medical History: CVA/TIA, Diabetes Mellitus, Hypertension Father Family Medical History: No Reported History Additional Family Medical History / Comment(s): Father was healthy Sister(s) Family Medical History: Cancer Additional Family Medical History / Comment(s): ONE SISTER LYMPHOMA, AND ONE WITH MULT MYELOMA Medications and Allergies Home Medications Medication Instructions Recorded Confirmed Type Aspirin [Adult Low Dose Aspirin EC] 81 tab PO HS 03/23/17 08/02/22 History Lisinopril-Hctz 10-12.5 mg 1 tab PO HS 03/23/17 08/02/22 History [Zestoretic 10-12.5] Ubidecarenone [Co Q-10] 100 mg PO AC-SUPPER 05/27/20 08/02/22 History Magnesium Oxide [Mag-Ox] 400 mg PO AC-SUPPER 07/23/21 08/02/22 History Multivit with Calcium,Iron,Min 1 tab PO AC-SUPPER 07/23/21 08/02/22 History [Women's Multivitamin] Pravastatin Sodium [Pravachol] 20 mg PO HS 07/23/21 08/02/22 History Hydroxychloroquine Sulfate 200 mg PO BID 08/02/22 08/02/22 History Pravastatin Sodium [Pravachol] 1 tab PO HS 08/02/22 08/02/22 History Allergies Allergy/AdvReac Type Severity Reaction Status Date / Time No Known Allergies Allergy Verified 10/19/22 04:12 Physical Exam Vitals: Vital Signs Temp Pulse Resp BP Pulse Ox 10/19/22 05:16 70 18 137/63 98 10/19/22 04:07 97.7 F 104 H 18 161/82 98 Intake and Output 10/18/22 10/18/22 10/19/22 14:59 22:59 06:59 Other: Weight 71.668 kg GENERAL: The patient is alert and oriented x3, not in any acute distress. Well developed, well nourished. HEENT: Pupils are round and equally reacting to light. EOMI. No scleral icterus. No conjunctival pallor. Normocephalic, atraumatic. No pharyngeal erythema. No thyromegaly. CARDIOVASCULAR: S1 and S2 present. No murmurs, rubs, or gallops. PULMONARY: Chest is clear to auscultation, no wheezing or crackles. ABDOMEN: Soft, nontender, nondistended, normoactive bowel sounds. No palpable organomegaly. MUSCULOSKELETAL: No joint swelling or deformity. EXTREMITIES: No cyanosis, clubbing, or pedal edema. NEUROLOGICAL: Gross neurological examination did not reveal any focal deficits. SKIN: No rashes. no petechiae. 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 diff if patient continued to have diarrhea Surgery team consult, no GI coverage and this facilitated during this week Labs and medication were reviewed.. Continue same treatment. Continue with symptomatic treatment. Resume home medication. Monitor labs and vitals. DVT and GI prophylaxis. Further recommendations as per clinical course of the patient DVT prophylaxis: no Subcutaneous heparin GI Prophylaxis: Ppi PT/OT: Pending Prognosis is guarded
[2022-10-19 08:43] LABS: HCT 36.5 % (34.0-46.0); HGB 12.7 gm/dL (11.4-16.0); MCH 30.4 pg (25.0-35.0); MCHC 34.8 g/dL (31.0-37.0); MCV 87.3 fL (80.0-100.0); Mean Platelet Volume 8.3; Platelet Count 174 k/uL (150-450); RBC 4.18 m/uL (3.80-5.40); RDW 13.1 % (11.5-15.5); WBC 4.3 k/uL (3.8-10.6)
--- NOTE | 2022-10-19 10:09 | P.GSCN ---
History of Present Illness Consult date: 10/19/22 History of present illness: CHIEF COMPLAINT: Bright red blood per rectum HISTORY OF PRESENT ILLNESS: This is a 81-year-old female who presented to the hospital with bright red blood per rectum that started yesterday afternoon. Patient reports that she had been at the store when she started having abdominal cramping and gas pains. She also was very sweaty. She made it home and had diarrhea. Initially she reports it as brown and no blood. A little while later she had significant abdominal cramping and started have bright red blood per rectum with no stool. There were occasional clots. She is on an aspirin at home. Denies any prior history of GI bleed. She does have a known history of diverticulosis and hemorrhoids. Her last colonoscopy was about 9 years ago and reports that it had shown diverticulosis. Hemoglobin on admission is 13.9 it's staying stable repeat hemoglobin 12.7. Mildly tachycardic on admission. Last episode of bleeding was around 5:30 this morning. PAST MEDICAL HISTORY: 06/2020 cervical cancer with surgery/radiation/chemo, "mini" strokes, pancreatitis associated with GB disease, nephrolithiasis/surgically removed, bilateral KIANA/aides, benign growth on thyroid, diverticular disease, murmur, bilateral eye glaucoma. PAST SURGICAL HISTORY: Cholecystectomy, Hysterectomy and see below MEDICATIONS: See below ALLERGIES: See below SOCIAL HISTORY: No illicit drug use. REVIEW OF SYSTEMS: CONSTITUTIONAL: Denies fever or chills. HEENT: Denies blurred vision, vision changes, or eye pain. Denies hemoptysis CARDIOVASCULAR: Denies chest pain or pressure. RESPIRATORY: No shortness of breath. GASTROINTESTINAL: See HPI for pertinent findings HEMATOLOGIC: Denies bleeding disorders. GENITOURINARY: Denies any blood in urine or increased urinary frequency. SKIN: Denies pruitis. Denies rash. PHYSICAL EXAM: VITAL SIGNS: Reviewed GENERAL: Well-developed in no acute distress. HEENT: No sclera icterus. Extraocular movements grossly intact. Moist buccal mucosa. Head is atraumatic, normocephalic. No nasal drainage. ABDOMEN: Soft. Nondistended. nontender NEUROLOGIC: Alert and oriented. Cranial nerves II through XII grossly intact. LABORATORY DATA: WBC 54.3 HgB 13.9-12.7 platelets 174 INR 1.0 Sodium is 137 potassium 3.4 creatinine 0.72 IMAGING: ASSESSMENT: 1. Acute lower GI bleed with bright red blood per rectum 2. History of diverticulosis and hemorrhoids PLAN: -Patient scheduled for colonoscopy tomorrow with Dr. Edelmira Barber bowel prep today -Continue clear liquid diet -Nothing by mouth after midnight -Continue IV fluids -Continue monitor hemoglobin -Continue to monitor for any signs or symptoms of bleeding -Continue supportive care -Hold aspirin Physician Scourer note has been reviewed by physician. Signing provider agrees with the documented findings, assessment, and plan of care. I have personally seen and examined the patient, reviewed the PROFESSOR OF APOLOGETICS /PAs history, exam and MDM and agree with the assessment and plan as written. Based on total visit time, I have performed more than 50% of the visit. As above: Patient with admission for GI bleed. We'll proceed with upper and lower endoscopy tomorrow. Past Medical History Past Medical History: Cancer, CVA/TIA, Eye Disorder, Hearing Disorder / Deafness, Hyperlipidemia, Hypertension, Thyroid Disorder Additional Past Medical History / Comment(s): 06/2020 cervical cancer with surgery/radiation/chemo, "mini" strokes, pancreatitis associated with GB disea se, nephrolithiasis/surgically removed, bilateral KIANA/aides, benign growth on thyroid, diverticular disease, murmur, bilateral eye glaucoma. History of Any Multi-Drug Resistant Organisms: None Reported Past Surgical History: Cholecystectomy, Hysterectomy Additional Past Surgical History / Comment(s): D&C, hysterectomy/BSO, lithotripsy/nephrostomy tube, colonoscopy, thyroid biopsy, bilateral cataract removals, port placement for chemo. port removed 2022 Past Anesthesia/Blood Transfusion Reactions: Family History of Problems w/ Anesthesia, Postoperative Nausea & Vomiting (PONV) Additional Past Anesthesia/Blood Transfusion Reaction / Comm: daughter stopped breathing during anesthesia Past Psychological History: No Psychological Hx Reported Smoking Status: Former smoker Past Alcohol Use History: Rare Past Drug Use History: None Reported - Past Family History Mother Family Medical History: CVA/TIA, Diabetes Mellitus, Hypertension Father Family Medical History: No Reported History Additional Family Medical History / Comment(s): Father was healthy Sister(s) Family Medical History: Cancer Additional Family Medical History / Comment(s): ONE SISTER LYMPHOMA, AND ONE WITH MULT MYELOMA Medications and Allergies Home Medications Medication Instructions Recorded Confirmed Type Aspirin [Adult Low Dose Aspirin EC] 81 tab PO HS 03/23/17 10/19/22 History Lisinopril-Hctz 10-12.5 mg 1 tab PO HS 03/23/17 10/19/22 History [Zestoretic 10-12.5] Multivit with Calcium,Iron,Min 1 tab PO AC-SUPPER 07/23/21 10/19/22 History [Women's Multivitamin] Pravastatin Sodium [Pravachol] 20 mg PO HS 07/23/21 10/19/22 History Hydroxychloroquine Sulfate 200 mg PO BID 08/02/22 10/19/22 History Allergies Allergy/AdvReac Type Severity Reaction Status Date / Time No Known Allergies Allergy Verified 10/19/22 08:08 Surgical - Exam Vital Signs Temp Pulse Resp BP Pulse Ox 97.7 F 104 H 18 161/82 98 10/19/22 04:07 10/19/22 04:07 10/19/22 04:07 10/19/22 04:07 10/19/22 04:07 Results - Labs 10/19/22 11:56 10/19/22 04:34 Abnormal Lab Results - Last 24 Hours (Table) 10/19/22 10/19/22 Range/Units 04:34 04:34 Lymphocytes # 0.9 L (1.0-4.8) k/uL Potassium 3.4 L (3.5-5.1) mmol/L Glucose 118 H (74-99) mg/dL Diabetes panel 10/19/22 Range/Units 04:34 Sodium 137 (137-145) mmol/L Potassium 3.4 L (3.5-5.1) mmol/L Chloride 100 (98-107) mmol/L Carbon Dioxide 27 (22-30) mmol/L BUN 13 (7-17) mg/dL Creatinine 0.72 (0.52-1.04) mg/dL Glucose 118 H (74-99) mg/dL Calcium 9.4 (8.4-10.2) mg/dL AST 33 (14-36) U/L ALT 23 (4-34) U/L Alkaline Phosphatase 65 (38-126) U/L Total Protein 6.5 (6.3-8.2) g/dL Albumin 4.3 (3.5-5.0) g/dL Calcium panel 10/19/22 Range/Units 04:34 Calcium 9.4 (8.4-10.2) mg/dL Albumin 4.3 (3.5-5.0) g/dL Pituitary panel 10/19/22 Range/Units 04:34 Sodium 137 (137-145) mmol/L Potassium 3.4 L (3.5-5.1) mmol/L Chloride 100 (98-107) mmol/L Carbon Dioxide 27 (22-30) mmol/L BUN 13 (7-17) mg/dL Creatinine 0.72 (0.52-1.04) mg/dL Glucose 118 H (74-99) mg/dL Calcium 9.4 (8.4-10.2) mg/dL Adrenal panel 10/19/22 Range/Units 04:34 Sodium 137 (137-145) mmol/L Potassium 3.4 L (3.5-5.1) mmol/L Chloride 100 (98-107) mmol/L Carbon Dioxide 27 (22-30) mmol/L BUN 13 (7-17) mg/dL Creatinine 0.72 (0.52-1.04) mg/dL Glucose 118 H (74-99) mg/dL Calcium 9.4 (8.4-10.2) mg/dL Total Bilirubin 0.9 (0.2-1.3) mg/dL AST 33 (14-36) U/L ALT 23 (4-34) U/L Alkaline Phosphatase 65 (38-126) U/L Total Protein 6.5 (6.3-8.2) g/dL Albumin 4.3 (3.5-5.0) g/dL
[2022-10-19] MEDS ORDERED: PEG 3350 (236 GM/BTL) + LYTES 4,000 ML BOTTLE PO ONE (10:13)
[2022-10-19 12:38] LABS: Basophils % (A) 0 %; Eosinophils % (A) 1 %; HCT 38.7 % (34.0-46.0); HGB 13.6 gm/dL (11.4-16.0); Lymphocytes # (A) 0.7 k/uL (1.0-4.8); Lymphocytes % (A) 17 %; MCH 30.2 pg (25.0-35.0); MCHC 35.1 g/dL (31.0-37.0); MCV 86.1 fL (80.0-100.0); Mean Platelet Volume 8.5; Monocytes # (A) 0.3 k/uL (0-1.0); Monocytes % (A) 6 %; Neutrophils # (A) 3.1 k/uL (1.3-7.7); Neutrophils % (A) 74 %; Platelet Count 188 k/uL (150-450); RBC 4.49 m/uL (3.80-5.40); RDW 13.4 % (11.5-15.5); WBC 4.2 k/uL (3.8-10.6)
[2022-10-19] MEDS: PRAVASTATIN SODIUM 20 MG TAB PO SCH (20:23)
[2022-10-19] MEDS: PANTOPRAZOLE 40 MG/10 ML VIAL IVP SCH (20:23)
[2022-10-19] MEDS: LISINOPRIL-HCTZ 10-12.5 MG 1 EACH TAB PO SCH (20:24)
[2022-10-19] MEDS: HYDROXYCHLOROQUINE SULFATE 200 MG TAB PO SCH (20:24)
[2022-10-19] MEDS ORDERED: ASPIRIN 81 MG PO SCH (21:00)
[2022-10-20 06:06] LABS: HCT 34.7 % (34.0-46.0); MCH 30.1 pg (25.0-35.0); MCHC 34.7 g/dL (31.0-37.0); MCV 86.7 fL (80.0-100.0); Mean Platelet Volume 8.4; Platelet Count 167 k/uL (150-450); WBC 3.8 k/uL (3.8-10.6)
[2022-10-20 06:18] LABS: African American GFR (CKD) >90 (>60 ml/min/1.73 sqM); Anion Gap 5 mmol/L; Blood Urea Nitrogen 14 mg/dL (7-17); Calcium 8.3 mg/dL (8.4-10.2); Carbon Dioxide 29 mmol/L (22-30); Chloride 104 mmol/L (98-107); Glucose 61 mg/dL (74-99); Non-African American GFR(CKD) 86 (>60 ml/min/1.73 sqM); Potassium 3.6 mmol/L (3.5-5.1); Sodium 138 mmol/L (137-145)
[2022-10-20 06:23] LABS: Glucose,Whole Blood 59 mg/dL (70-110)
[2022-10-20] MEDS: DEXTROSE 50% SYRINGE 50 ML IVP ONE ×2 (06:26→12:36)
[2022-10-20 06:38] LABS: Glucose,Whole Blood 147 mg/dL (70-110)
[2022-10-20] MEDS: PANTOPRAZOLE 40 MG/10 ML VIAL IVP SCH ×2 (07:42→19:54)
[2022-10-20] MEDS: SODIUM CHLORIDE 0.9% 1,000 ML IV SCH ×3 (08:36→19:57)
[2022-10-20] MEDS ORDERED: LIDOCAINE 2% INJ 20 MG/ML (2 ML VIAL) ONE (08:48)
[2022-10-20] MEDS ORDERED: PROPOFOL 10 MG/ML 20 ML VIAL IV ONE (08:48)
[2022-10-20] MEDS ORDERED: IV FLUID CONTINUATION 1,000 ML IV ONE (09:05)
--- NOTE | 2022-10-20 10:17 | P.PCN ---
Date of Procedure: 10/20/22 Procedure(s) Performed: PREOPERATIVE DIAGNOSIS: GI bleed POSTOPERATIVE DIAGNOSIS: While gastritis, tortuous sigmoid colon unable to advance beyond that area PROCEDURE: 1. EGD with biopsy 2. Colonoscopy attempted ANESTHESIA: MAC SURGEON: Liam Hickey M.D. SPECIMENS: Antrum ENDOSCOPIC PROCEDURE: The patient was on the endoscopy table in the left decubitus position. The Olympus gastroscope was inserted into the oropharynx and passed under direct visualization to the region of the third portion of the duodenum. From that point the scope was slowly withdrawn inspecting all surfaces carefully. There were no neoplastic inflammatory or polypoid lesions throughout the duodenum. The pylorus was widely patent. The stomach was carefully inspected. There was mild gastritis. A biopsy of the antrum took place to rule out H. pylori. Retroflexion revealed a normal hiatus. The esophagus was then carefully examined. There were no neoplastic inflammatory or polypoid lesions throughout the visualized esophagus. The patient was kept on the endoscopy table in the left decubitus position. The Olympus colonoscope was inserted into the anus and passed under direct visualization to the mid sigmoid colon. The patient's colon was quite tortuous. I was unable to advance beyond a very tight turn in the mid sigmoid colon. No definite diverticular orifices were seen. No evidence of neoplasm was identified. The scope was withdrawn. Digital rectal examination was normal. The patient was taken to the recovery room in stable condition per anesthesia guidelines. RECOMMENDATIONS: Keep nothing by mouth. We will ask radiology to perform a barium enema today to rule out mass lesion.
--- NOTE | 2022-10-20 12:20 | P.PN ---
Subjective A pleasant 83 years old female with past medical history of CVA/TIA, Hearing Disorder / Deafness, Hyperlipidemia, Hypertension, hypothyroidism, 06/2020 cervical cancer with surgery/radiation/chemo, "mini" strokes, pancreatitis associated with GB disease, nephrolithiasis/surgically removed, bilateral [place]/aides, benign growth on thyroid, diverticular disease, murmur, bilateral eye glaucoma. Patient presents because of rectal bleeding, few episodes since yesterday. Patient stated that she has 3 bouts of loose bowel movement, this happened yest erday followed by frequent episodes of bleeding per rectum about every 3-4 hours, however no bowel movements since then. Also she is complaining of from abdominal cramps as she describes in the lower abdomen, nonradiating about 5/10 in severity. Associated with decreased appetite but no nausea vomiting. No chest pain or dyspnea or coughing. No headache dizziness weakness or numbness, no urinary symptoms. She denies smoking alcohol or illicit drugs. She states she finished her chemo and radiotherapy for her history of cervical cancer about 2 years ago and that she follows up with oncologist out of town as well as Dr. Berrios in the town. She states she is on baby aspirin for the last 3 years because she has stroke found in her computed tomography scan of the brain but really she did not complain from any symptoms at that time or then or currently. Discussed with her the importance of holding aspirin and risks including but not limited to stroke and heart disease and she agrees to hold for now. Patient denies any recent NSAID use Patient is vitals stable and no tachycardia Hemoglobin is 13.9, rest of CBC is unremarkable except for lymphocyte 0.9 which is moderately low, INR normal 1.0. BMP and liver enzymes were unremarkable. EKG showing normal sinus rhythm at [address]-T changes and 50 mL 79 Emergency room started on normal saline 75 mL/h and received IV Protonix 10/20/2022 Patient will also she does not bowel movement. It will yesterday because she was getting the bowel preparation EKG today showing only mild gastritis and biopsy was taken, duodenum was negative for abnormal lesion as well as the esophagus. However the colonoscopy was already showing the sigmoid part but because of the tortuous colon Could not be advanced further however the sigmoid colon was not showing any lesion. Barium enema as a scheduled later on today. Aspirine remains on hold for now and hemoglobin and vitals stable. Continue gentle hydration. Possible discharge in 24-48 hours Objective - Vital Signs Vital signs: Vital Signs Temp 97.4 F L 10/20/22 08:21 Pulse 64 10/20/22 12:16 Resp 16 10/20/22 12:16 BP 150/73 10/20/22 12:16 Pulse Ox 96 10/20/22 12:16 FiO2 Intake & Output 10/19/22 10/20/22 10/20/22 18:59 06:59 18:59 Intake Total 118 50 Balance 118 50 Weight 71.668 kg Intake: IV 50 Oral 118 0 Other: Voiding Method Toilet # Voids 2 1 # Bowel Movements 1 - Exam GENERAL: The patient is alert and oriented x3, not in any acute distress. Well developed, well nourished. HEENT: Pupils are round and equally reacting to light. EOMI. No scleral icterus. No conjunctival pallor. Normocephalic, atraumatic. No pharyngeal erythema. No thyromegaly. CARDIOVASCULAR: S1 and S2 present. No murmurs, rubs, or gallops. PULMONARY: Chest is clear to auscultation, no wheezing or crackles. ABDOMEN: Soft, nontender, nondistended, normoactive bowel sounds. No palpable organomegaly. MUSCULOSKELETAL: No joint swelling or deformity. EXTREMITIES: No cyanosis, clubbing, or pedal edema. NEUROLOGICAL: Gross neurological examination did not reveal any focal deficits. SKIN: No rashes. no petechiae. - Labs CBC & Chem 7: 10/20/22 05:35 10/20/22 05:35 Labs: Abnormal Lab Results - Last 24 Hours (Table) 10/19/22 10/20/22 10/20/22 Range/Units 11:56 05:35 06:22 Lymphocytes # 0.7 L (1.0-4.8) k/uL Glucose 61 L (74-99) mg/dL POC Glucose (mg/dL) 59 L (70-110) mg/dL Calcium 8.3 L (8.4-10.2) mg/dL 10/20/22 Range/Units 06:37 Lymphocytes # (1.0-4.8) k/uL Glucose (74-99) mg/dL POC Glucose (mg/dL) 147 H (70-110) mg/dL Calcium (8.4-10.2) mg/dL Assessment and Plan Assessment: Bright red per rectum with lower abdominal pain. No abdominal pain. EGD showed mild gastritis. 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 diff if patient continued to have diarrhea Surgery team consult, no GI coverage and this facilitated during this week Labs and medication were reviewed.. Continue same treatment. Continue with symptomatic treatment. Resume home medication. Monitor labs and vitals. DVT and GI prophylaxis. Further recommendations as per clinical course of the patient DVT prophylaxis: no Subcutaneous heparin GI Prophylaxis: Ppi PT/OT: Pending Prognosis is guarded
[2022-10-20 12:22] LABS: Glucose,Whole Blood 67 mg/dL (70-110)
[2022-10-20] MEDS ORDERED: DEXTROSE 50% SYRINGE 50 ML IVP ONE ×2 (12:32→12:33)
[2022-10-20 12:54] LABS: Glucose,Whole Blood 169 mg/dL (70-110)
[2022-10-20] MEDS: HYDROXYCHLOROQUINE SULFATE 200 MG TAB PO SCH ×2 (14:21→19:55)
--- NOTE | 2022-10-20 15:53 | FL ---
EXAMINATION TYPE: FL barium enema DATE OF EXAM: 10/20/2022 COMPARISON: CT abdomen and pelvis July 23, 2021 HISTORY: Incomplete colonoscopy earlier today. Admitted to hospital for GI bleed. History of cervical cancer. TECHNIQUE: A double contrast barium enema study is performed. A total of 1 minute 54 seconds of flu oroscopic time was utilized during procedure and 18 images obtained. FINDINGS: Regional Sales Director view of the abdomen shows prominent history of recent attempted colonoscopy. Surgica l clips in the pelvis from cervical cancer treatment are noted. Cholecystectomy clips are redemonstra brdaley. There is placement of catheter and inflation of balloon. There is successful filling of the colon to the cecum. There are limitations due to patient's diminish motion and redundant sigmoid colon making evaluation particularly suboptimal for colonic polyps. Sigmoid colonic diverticulosis is redemonstrat ed. No obstructing or constricting neoplasm. Appendix was filled and appeared normal. Prominent ileocecal valve. No reflux of contrast into the te rminal ileum. Some additional limitation due to overlying EKG leads obscuring some detail. IMPRESSION: Successful filling to the cecum without obstructing or constricting neoplasm.
[2022-10-20] MEDS ORDERED: MULTIVITAMINS, THERA 1 EACH TAB PO SCH (17:30)
[2022-10-20] MEDS: LISINOPRIL-HCTZ 10-12.5 MG 1 EACH TAB PO SCH (19:55)
[2022-10-20] MEDS: PRAVASTATIN SODIUM 20 MG TAB PO SCH (19:55)
[2022-10-20 23:43] LABS: Glucose,Whole Blood 97 mg/dL (70-110)
[2022-10-21 04:37] VITALS: RESP 18
[2022-10-21] MEDS: PANTOPRAZOLE 40 MG/10 ML VIAL IVP SCH (08:24)
[2022-10-21] MEDS: HYDROXYCHLOROQUINE SULFATE 200 MG TAB PO SCH (08:25)
[2022-10-21 08:28] VITALS: BP 127/83; PULSE 69; TEMP 97.8
--- NOTE | 2022-10-21 09:23 | P.PN ---
Progress Note - Text Progress Note Date: 10/21/22 Patient's resting comfortably in bed. She has no significant complaints. Her barium enema is normal. On exam vital signs are stable. Abdomen soft. Patient stable for discharge home. She'll follow-up Dr. Hickey next week.
== END 2022-10-21 10:52 | disposition home or self-care (01) | DRG 379 ==
LOC: EC 04:00 → 3SCARD 06:01 → 2SICU 06:13 → 3SCARD 14:12
PROVIDERS: ADMIT Hospitalist; ATTEND Hospitalist
PROC: 0DB78ZX Excision of Stomach, Pylorus, Via Natural or Artificial Opening Endoscopic, Diagnostic (ICD-10-PCS; principal; 2022-10-20 14:30)
PROC: 0DJD8ZZ Inspection of Lower Intestinal Tract, Via Natural or Artificial Opening Endoscopic (ICD-10-PCS; 2022-10-20 14:30)
DX: K62.5 Hemorrhage of anus and rectum (principal); E03.9 Hypothyroidism, unspecified; E78.5 Hyperlipidemia, unspecified; Z79.890 Hormone replacement therapy; F10.20 Alcohol dependence, uncomplicated; H91.90 Unspecified hearing loss, unspecified ear; I10 Essential (primary) hypertension; K29.70 Gastritis, unspecified, without bleeding; Z87.19 Personal history of other diseases of the digestive system; R00.0 Tachycardia, unspecified; Z79.82 Long term (current) use of aspirin; Z79.899 Other long term (current) drug therapy; Z85.41 Personal history of malignant neoplasm of cervix uteri; Z86.73 Personal history of transient ischemic attack (TIA), and cerebral infarction without residual deficits; Z87.442 Personal history of urinary calculi; Z87.891 Personal history of nicotine dependence; Z90.710 Acquired absence of both cervix and uterus; Z90.49 Acquired absence of other specified parts of digestive tract; Z98.42 Cataract extraction status, left eye; Z98.41 Cataract extraction status, right eye
CPT/HCPCS: 36415; 43239; 45378; 74270; 80048; 80053; 83735; 85025; 85027; 85610; 85730; 86850; 86900; 86901; 88305; 93005; 96361; 96374; 99285

== ENCOUNTER → 2023-11-14 | Outpatient (CLI) | payer MEDICARE, BC ==
--- NOTE | 2023-11-16 11:34 | MM ---
Reason for Exam: Screening (asymptomatic). Last mammogram was performed 1 year(s) and 3 month(s) ago. Patient History: Menarche at age 12. First Full-Term at age 21. Postmenopausal. Previous chemotherapy at age 79. Patient used Hormonal Contraceptives for 5 years. Risk Values: Amelia 5 year model risk: 1.5%. NCI Lifetime model risk: 2.1%. Prior Study Comparison: 11/29/2010 Bilateral Diagnostic Mammogram, [facility]. 08/02/2016 Bilateral Screening Mammogram, [facility]. 07/28/2022 Bilateral MG 3D screening mammo w/cad, [facility]. Tissue Density: The breasts are heterogeneously dense, which may obscure small masses. Findings: Analyzed By CAD. There is no suspicious group of microcalcifications or new suspicious mass in either breast. Overall Assessment: Benign, BI-RAD 2 Management: Screening Mammogram of both breasts in 1 year. . Patient should continue monthly self-breast exams. A clinical breast exam by your physician is recommended on an annual basis. This exam should not preclude additional follow-up of suspicious palpable abnormalities. Note on Amelia scores and lifetime risk: 1. A Amelia score greater than 3% is considered moderate risk. If this is the case, consider specialist referral to assess eligibility for a risk reducing agent. 2. If overall lifetime risk for the development of breast cancer is 20% or higher, the patient may qualify for future screening with alternating mammogram and breast MRI. Electronically signed and approved by: Alberto Cruz M.D. Radiologis
== END | disposition home or self-care (01) ==
LOC: RADMAMWWP 13:32
PROVIDERS: ATTEND Family Medicine
DX: Z12.31 Encounter for screening mammogram for malignant neoplasm of breast (principal); Z78.0 Asymptomatic menopausal state
CPT/HCPCS: 77063; 77067

== ENCOUNTER 2024-04-20 09:45 | Inpatient (IN) | payer MEDICARE, BC ==
[2024-04-20] MEDS: ONDANSETRON 4 MG/2 ML VIAL IVP STA (10:30)
[2024-04-20] MEDS: SODIUM CHLORIDE 0.9% 1,000 ML IV STA (10:30)
[2024-04-20] MEDS: KETOROLAC 15 MG/ML 1 ML VIAL IVP STA (10:30)
[2024-04-20] MEDS: PANTOPRAZOLE 40 MG/10 ML VIAL IVP STA (10:31)
[2024-04-20 10:38] LABS: Basophils % (A) 0 %; Eosinophils % (A) 1 %; HCT 40.5 % (34.0-46.0); HGB 13.6 gm/dL (11.4-16.0); Lymphocytes # (A) 0.3 k/uL (1.0-4.8); Lymphocytes % (A) 5 %; MCH 29.5 pg (25.0-35.0); MCHC 33.7 g/dL (31.0-37.0); MCV 87.5 fL (80.0-100.0); Mean Platelet Volume 8.2; Monocytes # (A) 0.2 k/uL (0-1.0); Monocytes % (A) 4 %; Neutrophils # (A) 5.7 k/uL (1.3-7.7); Neutrophils % (A) 91 %; Platelet Count 201 k/uL (150-450); RBC 4.62 m/uL (3.80-5.40); RDW 12.7 % (11.5-15.5); WBC 6.3 k/uL (3.8-10.6)
[2024-04-20 10:51] LABS: ALT 22 U/L (4-34); AST 35 U/L (14-36); African American GFR (CKD) >90 (>60 ml/min/1.73 sqM); Albumin 4.3 g/dL (3.5-5.0); Alkaline Phosphatase 60 U/L (38-126); Amylase 34 U/L (30-110); Anion Gap 8 mmol/L; Blood Urea Nitrogen 24 mg/dL (7-17); Calcium 9.7 mg/dL (8.4-10.2); Carbon Dioxide 30 mmol/L (22-30); Chloride 100 mmol/L (98-107); Glucose 148 mg/dL (74-99); Lipase 64 U/L (23-300); Non-African American GFR(CKD) 79 (>60 ml/min/1.73 sqM); Potassium 3.3 mmol/L (3.5-5.1); Sodium 138 mmol/L (137-145); Total Bilirubin 0.8 mg/dL (0.2-1.3); Total Protein 6.2 g/dL (6.3-8.2)
[2024-04-20 11:07] LABS: Partial Thromboplastin Time 21.4 sec (22.0-30.0)
--- NOTE | 2024-04-20 11:33 | CT ---
EXAMINATION TYPE: CT abdomen pelvis w con DATE OF EXAM: 04/20/2024 COMPARISON: 07/23/2021 HISTORY: ABD PAIN history of cervical cancer CT DLP: 683 mGycm Automated exposure control for dose reduction was used. TECHNIQUE: Helical acquisition of images was performed from the lung bases through the pelvis. CONTRAST: Performed without Oral Contrast and with IV Contrast, patient injected with 100 mL of Isovue 300. FINDINGS: The lung bases are clear. There is surgical absence of gallbladder. There is no biliary ductal dilatation. There is no focal mass or organomegaly involving the liver, pancreas, spleen or adrenal glands. There is no solid renal mass or hydronephrosis and there is homogeneous contrast enhancement of the r enal parenchyma. There is a nonobstructing 7.3 mm right renal calculus. The caliber the abdominal aorta is normal is no retroperitoneal adenopathy or hemorrhage. There are multiple air and fluid-filled loops of dilated small bowel. The transition point appears to be in the mid pelvis where there is a short segment of markedly thickened small bowel wall. There is no free intraperitoneal air or fluid. No pelvic mass, free fluid, abscess or adenopathy. There is surgical absence of the uterus. The osseous structures and soft tissues are intact. IMPRESSION: 1. Mid partial small bowel obstruction appears to be secondary to a short segment of small bowel wall thickening in the mid upper pelvis. 2. Nonobstructing 7.3 mm right renal calculus [facility] Jesus Cardoza, , 04/20/2024 11:31 AM
[2024-04-20] MEDS ORDERED: KETOROLAC 15 MG/ML 1 ML VIAL IVP PRN (12:53)
[2024-04-20] MEDS ORDERED: MORPHINE SULFATE 4 MG/ML SYRINGE IV PRN (12:53)
[2024-04-20] MEDS ORDERED: NALOXONE 0.4 MG/ML 1 ML VIAL IV PRN (12:53)
[2024-04-20] MEDS: SODIUM CHLORIDE 0.9% 1,000 ML IV SCH (13:20)
--- NOTE | 2024-04-20 14:47 | ED ---
General Adult HPI - General Chief complaint: Abdominal Pain Stated complaint: Possible pancreatitis Time Seen by Provider: 04/20/24 10:05 Source: patient, RN notes reviewed, old records reviewed Mode of arrival: ambulatory Limitations: no limitations - History of Present Illness Initial comments: Patient is an 83-year-old female presents emergency department complaining of abdominal pain. He has a history of CVA, hypertension, hyperlipidemia. No history of abdominal surgeries. Presents complaining of epigastric abdominal pain with nausea and vomiting. Started last night and is continued today. States it does not radiate. Has had nonbilious nonbloody emesis. No change in flatulence or bowel movements per patient. No cardiac history. Denies shortness of breath. Denies fevers, chills, cough. No other acute complaints at this time. Presents for further evaluation. She has had pancreatitis in the past and she is concerned regarding this.History of a cholecystectomy. - Related Data Home Medications Medication Instructions Recorded Confirmed Aspirin [Adult Low Dose Aspirin EC] 81 tab PO HS 03/23/17 04/20/24 Lisinopril-Hctz 10-12.5 mg 1 tab PO HS 03/23/17 04/20/24 [Zestoretic 10-12.5] Multivit with Calcium,Iron,Min 1 tab PO AC-SUPPER 07/23/21 04/20/24 [Women's Multivitamin] Pravastatin Sodium [Pravachol] 20 mg PO HS 07/23/21 04/20/24 Hydroxychloroquine Sulfate 200 mg PO BID 08/02/22 04/20/24 Ubidecarenone [Coenzyme Q10] 200 mg PO DAILY 04/20/24 04/20/24 Previous Rx's Medication Instructions Recorded Pantoprazole Sodium [Protonix] 40 mg PO DAILY #30 tab 10/21/22 Allergies Allergy/AdvReac Type Severity Reaction Status Date / Time No Known Allergies Allergy Verified 04/20/24 13:29 Review of Systems ROS Statement: Those systems with pertinent positive or pertinent negative responses have been documented in the HPI. Review of Systems: CONST: Denies fever EYES: Denies blurry vision ENT: Denies nasal congestion C/V: Denies Chest pain RESP: Denies shortness of breath GI: Endorses abdominal pain : Denies dysuria SKIN: Denies rash. MSK: Denies joint pain. NEURO: Denies headache ROS Other: All systems not noted in ROS Statement are negative. Past Medical History Past Medical History: Cancer, CVA/TIA, Eye Disorder, Hearing Disorder / Deafne ss, Hyperlipidemia, Hypertension, Thyroid Disorder Additional Past Medical History / Comment(s): 06/2020 cervical cancer with surgery/radiation/chemo, "mini" strokes, pancreatitis associated with GB disease, nephrolithiasis/surgically removed, bilateral CURYUNG/aides, benign growth on thyroid, diverticular disease, murmur, bilateral eye glaucoma. History of Any Multi-Drug Resistant Organisms: None Reported Past Surgical History: Cholecystectomy, Hysterectomy Additional Past Surgical History / Comment(s): D&C, hysterectomy/BSO, lithotripsy/nephrostomy tube, colonoscopy, thyroid biopsy, bilateral cataract removals, port placement for chemo. port removed 2022 Past Anesthesia/Blood Transfusion Reactions: Family History of Problems w/ Anesthesia, Postoperative Nausea & Vomiting (PONV) Additional Past Anesthesia/Blood Transfusion Reaction / Comment(s): daughter stopped breathing during anesthesia Past Psychological History: No Psychological Hx Reported Smoking Status: Former smoker Past Alcohol Use History: Rare Past Drug Use History: None Reported - Past Family History Mother Family Medical History: CVA/TIA, Diabetes Mellitus, Hypertension Father Family Medical History: No Reported History Additional Family Medical History / Comment(s): Father was healthy Sister(s) Family Medical History: Cancer Additional Family Medical History / Comment(s): ONE SISTER LYMPHOMA, AND ONE WITH MULT MYELOMA General Exam - General Exam Comments Initial Comments: General: Appears in no acute distress. HEAD: Normal with no signs of head trauma. EYES: PERRLA, EOMI, conjunctiva normal, no discharge. ENT: Hearing grossly intact, normal oropharynx. RESPIRATORY: Clear breath sounds bilaterally. No wheezes, rales, or rhonchi. C/V: Regular rate and rhythm. S1 and S2 auscultated, no edema, peripheral pulses 2+ and intact throughout ABD: Abdomen soft, nondistended. Mild tenderness to palpation epigastric reg ion. No guarding or rebound tenderness. No peritoneal signs. EXT: Normal range of motion, no obvious deformity SKIN: No rashes or lesions observed on exposed skin. NEURO: Alert and oriented x 4. Limitations: no limitations Course Vital Signs 04/20/24 09:47 Temperature 97.6 F Pulse Rate 72 Respiratory 18 Rate Blood Pressure 117/65 O2 Sat by Pulse 96 Oximetry Medical Decision Making - Medical Decision Making Was pt. sent in by a medical professional or institution (RITU Monson, ICE CREAM MACHINE OPERATOR, urgent care, hospital, or care home...) When possible be specific @ -No Did you speak to anyone other than the patient for history (EMS, parent, family, police, friend...)? What history was obtained from this source @ -No Did you review nursing and triage notes (agree or disagree)? Why? @ -I reviewed and agree with nursing and triage notes Were old charts reviewed (outside hosp., previous admission, EMS record, old EKG, old radiological studies, urgent care reports/EKG's, care home records)? Report findings @ -No old charts were reviewed Differential Diagnosis (chest pain, altered mental status, abdominal pain women, abdominal pain men, vaginal bleeding, weakness, fever, dyspnea, syncope, headache, dizziness, GI bleed, back pain, seizure, CVA, palpatations, mental health, musculoskeletal)? @ -Differential Abdominal Pain Women: Appendicitis, Cholecystitis, diverticulosis, ischemic bowel, pancreatitis, hepatitis, UTI, gastroenteritis, AAA, incarcerated hernia, bowel obstruction, constipation, inflammatory bowel, hepatitis, peptic ulcer disease, splenic infarction, perforated viscus, vulvitis, ovarian torsion, PID, kidney stone, placenta abruption, this is not meant to be an all-inclusive list EKG interpreted by me (3pts min.). @ -As above X-rays interpreted by me (1pt min.). @ -None done CT interpreted by me (1pt min.). @ -CT reveals a partial small bowel obstruction. U/S interpreted by me (1pt. min.). @ -None done What testing was considered but not performed or refused? (CT, X-rays, U/S, la bs)? Why? @ -None What meds were considered but not given or refused? Why? @ -None Did you discuss the management of the patient with other professionals (professionals i.e. RITU Monson, ICE CREAM MACHINE OPERATOR, lab, RT, psych nurse, social sciences professor, corrective therapy aide teacher, teacher, health officer, outsole caser)? Give summary @ -Discussed with on-call surgeon, Dr. Lees. Requested medicine admission. Requested NG tube placement and bowel rest. I spoke with the admitting team, Dr. Rinaldi who accepted the admission. Was smoking cessation discussed for >3mins.? @ -No Was critical care preformed (if so, how long)? @ -No Were there social determinants of health that impacted care today? How? (Homelessness, low income, unemployed, alcoholism, drug addiction, transportation, low edu. Level, literacy, decrease access to med. care, alf, rehab)? @ -No Was there de-escalation of care discussed even if they declined (Discuss DNR or withdrawal of care, Hospice)? DNR status @ -No What co-morbidities impacted this encounter? (DM, HTN, Smoking, COPD, CAD, Cancer, CVA, ARF, Chemo, Hep., AIDS, mental health diagnosis, sleep apnea, m orbid obesity)? @ -None Was patient admitted / discharged? Hospital course, mention meds given and route, prescriptions, significant lab abnormalities, going to OR and other pertinent info. @ -Patient presents with epigastric abdominal pain with nausea and vomiting. We will obtain abdominal labs as well as atypical ACS rule out. Patient was in agreement this plan. CT imaging the abdomen pelvis will be obtained. Vitals are within acceptable limits. Laboratory studies remarkable for undetectable troponin. EKG shows no signs of acute ischemia. Remainder the labs unremarkable. CT imaging shows partial small bowel obstruction. I updated the patient. She will be admitted to the hospital. I spoke with the surgeon, Dr. Lees who accepted the consult. Requested NG tube placement. I spoke with the admitting physician, Dr. Rinaldi who accepted the admission. Undiagnosed new problem with uncertain prognosis? @ -No Drug Therapy requiring intensive monitoring for toxicity (Heparin, Nitro, Insulin, Cardizem)? @ -No Were any procedures done? @ -No Diagnosis/symptom? @ -Partial small bowel obstruction Acute, or Chronic, or Acute on Chronic? @ -Acute Uncomplicated (without systemic symptoms) or Complicated (systemic symptoms)? @ -Complicated Side effects of treatment? @ -No Exacerbation, Progression, or Severe Exacerbation? @ -No Poses a threat to life or bodily function? How? (Chest pain, [place], [place], pneumonia, PE, COPD, DKA, ARF, appy, cholecystitis, CVA, Diverticulitis, Homicidal, Suicidal, threat to staff... and all critical care pts) @ -Potentially, yes - Lab Data Result diagrams: 04/20/24 10:10 04/20/24 10:10 Lab Results 04/20/24 04/20/24 04/20/24 Range/Units 10:10 10:10 10:10 WBC 6.3 (3.8-10.6) k/uL RBC 4.62 (3.80-5.40) m/uL Hgb 13.6 (11.4-16.0) gm/dL Hct 40.5 (34.0-46.0) % MCV 87.5 (80.0-100.0) fL MCH 29.5 (25.0-35.0) pg MCHC 33.7 (31.0-37.0) g/dL RDW 12.7 (11.5-15.5) % Plt Count 201 (150-450) k/uL MPV 8.2 Neutrophils % 91 % Lymphocytes % 5 % Monocytes % 4 % Eosinophils % 1 % Basophils % 0 % Neutrophils # 5.7 (1.3-7.7) k/uL Lymphocytes # 0.3 L (1.0-4.8) k/uL Monocytes # 0.2 (0-1.0) k/uL Eosinophils # 0.0 (0-0.7) k/uL Basophils # 0.0 (0-0.2) k/uL PT 11.0 (10.0-12.5) sec INR 1.0 (<1.2) APTT 21.4 L (22.0-30.0) sec Sodium 138 (137-145) mmol/L Potassium 3.3 L (3.5-5.1) mmol/L Chloride 100 (98-107) mmol/L Carbon Dioxide 30 (22-30) mmol/L Anion Gap 8 mmol/L BUN 24 H (7-17) mg/dL Creatinine 0.72 (0.52-1.04) mg/dL Est GFR (CKD-EPI)AfAm >90 (>60 ml/min/1.73 sqM) Est GFR (CKD-EPI)NonAf 79 (>60 ml/min/1.73 sqM) Glucose 148 H (74-99) mg/dL Plasma Lactic Acid Ruben (0.7-2.0) mmol/L Calcium 9.7 (8.4-10.2) mg/dL Total Bilirubin 0.8 (0.2-1.3) mg/dL AST 35 (14-36) U/L ALT 22 (4-34) U/L Alkaline Phosphatase 60 (38-126) U/L Troponin I (0.000-0.034) ng/mL Total Protein 6.2 L (6.3-8.2) g/dL Albumin 4.3 (3.5-5.0) g/dL Amylase 34 (30-110) U/L Lipase 64 (23-300) U/L Influenza Type A (PCR) (Not Detectd) Influenza Type B (PCR) (Not Detectd) RSV (PCR) (Not Detectd) SARS-CoV-2 (PCR) (Not Detectd) 04/20/24 04/20/24 04/20/24 Range/Units 10:10 10:11 10:11 WBC (3.8-10.6) k/uL RBC (3.80-5.40) m/uL Hgb (11.4-16.0) gm/dL Hct (34.0-46.0) % MCV (80.0-100.0) fL MCH (25.0-35.0) pg MCHC (31.0-37.0) g/dL RDW (11.5-15.5) % Plt Count (150-450) k/uL MPV Neutrophils % % Lymphocytes % % Monocytes % % Eosinophils % % Basophils % % Neutrophils # (1.3-7.7) k/uL Lymphocytes # (1.0-4.8) k/uL Monocytes # (0-1.0) k/uL Eosinophils # (0-0.7) k/uL Basophils # (0-0.2) k/uL PT (10.0-12.5) sec INR (<1.2) APTT (22.0-30.0) sec Sodium (137-145) mmol/L Potassium (3.5-5.1) mmol/L Chloride (98-107) mmol/L Carbon Dioxide (22-30) mmol/L Anion Gap mmol/L BUN (7-17) mg/dL Creatinine (0.52-1.04) mg/dL Est GFR (CKD-EPI)AfAm (>60 ml/min/1.73 sqM) Est GFR (CKD-EPI)NonAf (>60 ml/min/1.73 sqM) Glucose (74-99) mg/dL Plasma Lactic Acid Ruben 1.6 (0.7-2.0) mmol/L Calcium (8.4-10.2) mg/dL Total Bilirubin (0.2-1.3) mg/dL AST (14-36) U/L ALT (4-34) U/L Alkaline Phosphatase (38-126) U/L Troponin I <0.012 (0.000-0.034) ng/mL Total Protein (6.3-8.2) g/dL Albumin (3.5-5.0) g/dL Amylase (30-110) U/L Lipase (23-300) U/L Influenza Type A (PCR) Not Detected (Not Detectd) Influenza Type B (PCR) Not Detected (Not Detectd) RSV (PCR) Not Detected (Not Detectd) SARS-CoV-2 (PCR) Not Detected (Not Detectd) - EKG Data -: EKG Interpreted by Me EKG Comments: 12-lead Electrocardiogram Interpretation Note EKG was reviewed and interpreted by myself. 12-lead ECG performed at [facility] is interpreted by me as revealing normal sinus rhythm at a rate of 68 beats per minute. [place] is normal. PA interval is 138 ms, QRS duration is 99 ms, QTc is 430 ms.. There were no ST or T wave abnormalities to suggest myocardial ischemia or injury. R wave progression across the precordium was satisfactory. By my interpretation this EKG is non-diagnostic for acute ischemia. Disposition Clinical Impression: Partial small bowel obstruction Disposition: ADMITTED IP TO THIS HOSP Condition: Stable Time of Disposition: 12:50
--- NOTE | 2024-04-20 15:21 | P.HPIM ---
History of Present Illness This is a pleasant 83 years old female with past medical history of multiple medical problems. PCP is Dr. Dove Presents because of abdominal pain of 1 day duration started 7 PM last night in the middle of the abdomen nonradiating felt like colic, goes but described by the patient is mild pain associated with significant vomiting, patient states she has been vomiting every 1 hour with no blood Her last bowel movement was yesterday. No diarrhea. She denies chest pain dyspnea. No urinary complaints. No headache dizziness w eakness numbness She denies smoking alcohol or illicit drugs She is afebrile Potassium low 3.3 other than that she has unremarkable CBC, BMP, liver enzymes, INR, troponin, lipase Influenza A and type B, RSV, SARS (coronavirus) are un detected\\ CT of the abdomen pelvis showing partial small bowel obstruction secondary to short segment of small bowel thickening Right renal calculus about 7.3 mm Review of Systems Review of systems CONSTITUTIONAL: No fever, no malaise, no fatigue. HEENT: No recent visual problems or hearing problems. Denied any sore throat. CARDIOVASCULAR: No orthopnea, PND, no palpitations, no syncope. PULMONARY: No shortness of breath, no cough, no hemoptysis. GASTROINTESTINAL: As above NEUROLOGICAL: No headaches, no weakness, no numbness. HEMATOLOGICAL: Denies any bleeding or petechiae. GENITOURINARY: Denies any burning micturition, frequency, or urgency. MUSCULOSKELETAL/RHEUMATOLOGICAL: Denies any joint pain, swelling, or any muscle pain. ENDOCRINE: Denies any polyuria or polydipsia. Past Medical History Past Medical History: Cancer, CVA/TIA, Eye Disorder, Hearing Disorder / Deafness , Hyperlipidemia, Hypertension, Thyroid Disorder Additional Past Medical History / Comment(s): 06/2020 cervical cancer with surgery/radiation/chemo, "mini" strokes, pancreatitis associated with GB disease, nephrolithiasis/surgically removed, bilateral IQUGMIUT/aides, benign growth on thyroid, diverticular disease, murmur, bilateral eye glaucoma. History of Any Multi-Drug Resistant Organisms: None Reported Past Surgical History: Cholecystectomy, Hysterectomy Additional Past Surgical History / Comment(s): D&C, hysterectomy/BSO, lithotripsy/nephrostomy tube, colonoscopy, thyroid biopsy, bilateral cataract removals, port placement for chemo. port removed 2022 Past Anesthesia/Blood Transfusion Reactions: Family History of Problems w/ Anesthesia, Postoperative Nausea & Vomiting (PONV) Additional Past Anesthesia/Blood Transfusion Reaction / Comment(s): daughter stopped breathing during anesthesia Past Psychological History: No Psychological Hx Reported Smoking Status: Former smoker Past Alcohol Use History: Rare Past Drug Use History: None Reported - Past Family History Mother Family Medical History: CVA/TIA, Diabetes Mellitus, Hypertension Father Family Medical History: No Reported History Additional Family Medical History / Comment(s): Father was healthy Sister(s) Family Medical History: Cancer Additional Family Medical History / Comment(s): ONE SISTER LYMPHOMA, AND ONE WITH MULT MYELOMA Medications and Allergies Home Medications Medication Instructions Recorded Confirmed Type Aspirin [Adult Low Dose Aspirin EC] 81 tab PO HS 03/23/17 04/20/24 History Lisinopril-Hctz 10-12.5 mg 1 tab PO HS 03/23/17 04/20/24 History [Zestoretic 10-12.5] Multivit with Calcium,Iron,Min 1 tab PO AC-SUPPER 07/23/21 04/20/24 History [Women's Multivitamin] Pravastatin Sodium [Pravachol] 20 mg PO HS 07/23/21 04/20/24 History Hydroxychloroquine Sulfate 200 mg PO BID 08/02/22 04/20/24 History Pantoprazole Sodium [Protonix] 40 mg PO DAILY #30 tab 10/21/22 04/20/24 Rx Ubidecarenone [Coenzyme Q10] 200 mg PO DAILY 04/20/24 04/20/24 History Allergies Allergy/AdvReac Type Severity Reaction Status Date / Time No Known Allergies Allergy Verified 04/20/24 13:29 Physical Exam Vitals: Vital Signs Temp Pulse Resp BP Pulse Ox 04/20/24 14:50 70 14 129/54 99 04/20/24 13:50 65 16 123/56 99 04/20/24 09:47 97.6 F 72 18 117/65 96 Intake and Output 04/20/24 04/20/24 04/20/24 06:59 14:59 22:59 Other: Weight 71.214 kg GENERAL: The patient is alert and oriented x3, not in any acute distress. Well developed, well nourished. HEENT: Pupils are round and equally reacting to light. EOMI. No scleral icterus. No conjunctival pallor. Normocephalic, atraumatic. No pharyngeal erythema. No thyromegaly. CARDIOVASCULAR: S1 and S2 present. No murmurs, rubs, or gallops. PULMONARY: Chest is clear to auscultation, no wheezing , no crackles. -ABDOMEN: Soft, n mild periumbilical tenderness with no guarding or rebound tenderness, nondistended, normoactive bowel sounds. No palpable organomegaly. MUSCULOSKELETAL: No joint swelling or deformity. EXTREMITIES: No cyanosis, clubbing, or pedal edema. NEUROLOGICAL: Gross neurological examination did not reveal any focal deficits. SKIN: No rashes. no petechiae. Results CBC & Chem 7: 04/20/24 10:10 04/20/24 10:10 Labs: Abnormal Lab Results - Last 24 Hours (Table) 04/20/24 04/20/24 04/20/24 Range/Units 10:10 10:10 10:10 Lymphocytes # 0.3 L (1.0-4.8) k/uL APTT 21.4 L (22.0-30.0) sec Potassium 3.3 L (3.5-5.1) mmol/L BUN 24 H (7-17) mg/dL Glucose 148 H (74-99) mg/dL Total Protein 6.2 L (6.3-8.2) g/dL Assessment and Plan Assessment: Partial small bowel obstruction related to small segment of small bowel thickening Right renal calculus, asymptomatic about 7.3 mm Hypertension Hyperlipidemia Hypothyroidism History of TIA History of cervical cancer about 3 years ago status post chemoradiotherapy Plan: Continue with bowel rest Patient with no significant pain NG tube was placed continue suctioning Continue with normal saline Surgery team consult Further recommendation based on the clinical course GI prophylaxis: Protonix DVT prophylaxis: Subcutaneous heparin Prognosis guarded
--- NOTE | 2024-04-20 15:34 | XR ---
EXAMINATION TYPE: XR KUB DATE OF EXAM: 04/20/2024 2:32 PM CLINICAL INDICATION:Female, 83 years old with history of NGT placement; [facility] COMPARISON: Same day CT TECHNIQUE: Supine radiographic view/s of the abdomen/pelvis obtained. FINDINGS: An NG tube is present, coils back sharply on itself at the GE junction with side hole and tip over th e esophagus. Scattered gas throughout the bowel loops with mild distention again suggesting a partial small bowel obstruction. No unusual calcifications are seen. Contrast is seen in the renal collecting systems and bladder from recent administration. Osseous structures show no acute abnormalities. Mild degenerative changes. IMPRESSION: Abnormally positioned NG tube. This requires advancement/repositioning. [facility], , 04/20/2024 3:32 PM
--- NOTE | 2024-04-20 17:18 | XR ---
EXAMINATION TYPE: XR chest 1V confirm line plcmt DATE OF EXAM: 04/20/2024 COMPARISON: 08/30/2020 HISTORY: NG tube placement TECHNIQUE: Single frontal view of the chest is obtained. FINDINGS: There is no focal air space opacity, pleural effusion, or pneumothorax seen. The cardiac silhouette size is within normal limits. The osseous structures are intact. Underlying emphysematou s changes with basilar atelectasis. NG tube seen coiled in the left upper quadrant with the tip coile d back into the distal esophagus recommend repositioning. IMPRESSION: 1. NG tube appears coiled back upon itself with the tip of the catheter coiled back into the distal e sophagus. [facility], , 04/20/2024 5:16 PM
[2024-04-20] MEDS: ONDANSETRON 4 MG/2 ML VIAL IVP PRN (22:39)
[2024-04-21 03:32] LABS: Appearance,Urine Clear (Clear); Bacteria,Urine Rare /hpf; Bilirubin,Urine Negative (Negative); Blood,Urine Negative (Negative); Color,Urine Yellow; Glucose,Urine (UA) Negative (Negative); Ketones,Urine 2+ (Negative); Leukocyte Esterase,Urine Small (Negative); Mucus,Urine Occasional /hpf; Nitrite,Urine Negative (Negative); PH, Urine 5.5 (5.0-8.0); Protein,Urine 1+ (Negative); RBC,Urine 7 /hpf (0-5); Specific Gravity,Urine 1.038 (1.001-1.035); Urobilinogen,Urine <2.0 mg/dL (<2.0); WBC,Urine 7 /hpf (0-5)
[2024-04-21] MEDS: PANTOPRAZOLE 40 MG/10 ML VIAL IV SCH (08:32)
--- NOTE | 2024-04-21 08:32 | XR ---
EXAMINATION TYPE: XR chest 1V DATE OF EXAM: 04/21/2024 8:03 AM CLINICAL INDICATION: Female, 83 years old with history of NG tube placement.; [facility] COMPARISON: Chest radiographs from 04/20/2024 TECHNIQUE: XR chest 1V Frontal view of the chest. FINDINGS: Lungs/Pleura: There is no evidence of pleural effusion, focal consolidation, or pneumothorax. Pulmonary vascularity: Unremarkable. Heart/mediastinum: Cardiomediastinal silhouette is unremarkable. Musculoskeletal: No acute osseous pathology. Other findings: None Lines/Tubes: Nasogastric tube with its distal tip and side-port projecting under the diaphragm. IMPRESSION: 1. Nasogastric tube in appropriate placement. 2. No acute cardiopulmonary disease/process. [facility], , 04/21/2024 8:30 AM
[2024-04-21 09:11] LABS: ALT 21 U/L (8-44); AST 32 U/L (13-35); Albumin 3.8 g/dL (3.8-4.9); Albumin/Globulin Ratio 2.71 Ratio (1.60-3.17); Alkaline Phosphatase 55 U/L (41-126); BUN/Creat Ratio 34.29 Ratio (12.00-20.00); Basophils # (A) 0.02 X 10*3/uL (0.00-0.10); Basophils % (A) 0.2 %; Calcium 8.6 mg/dL (8.7-10.3); Chloride 105 mmol/L (96-109); Eosinophils # (A) 0 X 10*3/uL (0.04-0.35); Eosinophils % (A) 0 %; Globulin 1.4 g/dL (1.6-3.3); Glucose 114 mg/dL (70-110); HCT 37.2 % (37.2-46.3); HGB 12.5 g/dL (12.0-15.0); Lymphocytes # (A) 0.45 X 10*3/uL (0.90-5.00); Lymphocytes % (A) 5.5 %; MCH 29.3 pg (27.0-32.0); MCHC 33.6 g/dL (32.0-37.0); MCV 87.1 FL (80.0-97.0); Mean Platelet Volume 11.5 FL (9.5-12.2); Monocytes # (A) 0.62 X 10*3/uL (0.20-1.00); Monocytes % (A) 7.6 %; NRBC Per 100 WBC 0 X 10*3/uL (0.00-0.01); Neutrophils # (A) 7.03 X 10*3/uL (1.80-7.70); Neutrophils % (A) 86.5 %; Platelet Count 195 X 10*3/uL (140-440); Potassium 3.2 mmol/L (3.5-5.5); RBC 4.27 X 10*6/uL (4.10-5.20); RDW 13.5 % (11.5-14.5); Sodium 142 mmol/L (135-145); Total Bilirubin 0.6 mg/dL (0.3-1.2); Total Protein 5.2 g/dL (6.2-8.2); WBC 8.14 X 10*3/uL (4.50-10.00)
--- NOTE | 2024-04-21 09:27 | XR ---
EXAMINATION TYPE: XR abdomen 1V DATE OF EXAM: 04/21/2024 HISTORY: Pain. Technique: Two-view abdomen submitted. Comparison: None. Findings: There is no convincing evidence of pneumoperitoneum. Dilated proximal and mid small bowel measuring up to 3.9 cm. Early complete or partial small bowel ob struction difficult to exclude. Correlate clinically and progress studies are advised. No mass effects are noted. No renal calcifications are identified. IMPRESSION: 1. Dilated proximal and mid small bowel measuring up to 3.9 cm. Early complete or partial small bowel obstruction difficult to exclude. Correlate clinically and progress studies are advised. [facility], , 04/21/2024 9:24 AM
[2024-04-21] MEDS ORDERED: PROCHLORPERAZINE INJ 10 MG/2 ML VIAL IVP PRN (11:22)
--- NOTE | 2024-04-21 11:27 | P.PN ---
Subjective This is a pleasant 83 years old female with past medical history of multiple medical problems. PCP is Dr. Dove Presents because of abdominal pain of 1 day duration started 7 PM last night in the middle of the abdomen nonradiating felt like colic, goes but described by the patient is mild pain associated with significant vomiting, patient states she has been vomiting every 1 hour with no blood Her last bowel movement was yesterday. No diarrhea. She denies chest pain dyspnea. No urinary complaints. No headache dizziness weakness numbness She denies smoking alcohol or illicit drugs She is afebrile Potassium low 3.3 other than that she has unremarkable CBC, BMP, liver enzymes, INR, troponin, lipase Influenza A and type B, RSV, SARS (coronavirus) are un detected\ CT of the abdomen pelvis showing partial small bowel obstruction secondary to short segment of small bowel thickening Right renal calculus about 7.3 mm 04/21 Patient NG tube was in place but patient vomited 3-4 times this morning She has mild to moderate abdominal pain tenderness in her abdomen, similar to yesterday or even less severe KUB showing dilated proximal intestinal loops Chest x-ray showing NG tube in position Currently she is on Zofran, Compazine is added as needed for better control Continue with IV hydration Review of systems CONSTITUTIONAL: No fever, no malaise, no fatigue. HEENT: No recent visual problems or hearing problems. Denied any sore throat. CARDIOVASCULAR: No orthopnea, PND, no palpitations, no syncope. PULMONARY: No shortness of breath, no cough, no hemoptysis. HEMATOLOGICAL: Denies any bleeding or petechiae. GENITOURINARY: Denies any burning micturition, frequency, or urgency. MUSCULOSKELETAL/RHEUMATOLOGICAL: Denies any joint pain, swelling, or any muscle pain. ENDOCRINE: Denies any polyuria or polydipsia. Active Medications Generic Name Dose Route Start Last Admin Trade Name Freq PRN Reason Stop Dose Admin Sodium Chloride 1,000 mls @ 100 mls/hr 04/20/24 13:00 04/20/24 22:41 Saline 0.9% IV 100 mls/hr .Q10H RADHA Administration Potassium Chloride 10 meq/ IV 100 mls @ 100 mls/hr 04/21/24 12:00 Solution IVPB Q8H RADHA Ketorolac Tromethamine 15 mg 04/20/24 12:53 Ketorolac 15 Mg/Ml 1 Ml Vial IVP 04/23/24 12:54 Q6HR PRN Moderate Pain (Scale 4 to 6) Morphine Sulfate 4 mg 04/20/24 12:53 Morphine Sulfate 4 Mg/Ml Syringe IV Q4HR PRN Severe Pain (Scale 7 to 10) Naloxone HCl 0.2 mg 04/20/24 12:53 Naloxone 0.4 Mg/Ml 1 Ml Vial IV Q2M PRN Opioid Reversal Ondansetron HCl 4 mg 04/20/24 12:53 04/21/24 06:55 Ondansetron 4 Mg/2 Ml Vial IVP 4 mg Q8HR PRN Administration Nausea And Vomiting Pantoprazole Sodium 40 mg 04/21/24 09:00 04/21/24 08:32 Pantoprazole 40 Mg/10 Ml Vial IV 40 mg DAILY RADHA Administration Prochlorperazine Edisylate 10 mg 04/21/24 11:22 Prochlorperazine Inj 10 Mg/2 Ml Vial IVP Q6HR PRN Nausea And Vomiting Objective - Vital Signs Vital signs: Vital Signs Temp 98.1 F 04/21/24 07:23 Pulse 55 L 04/21/24 07:23 Resp 17 04/21/24 07:23 BP 144/68 04/21/24 07:23 Pulse Ox 95 04/21/24 07:23 FiO2 Intake & Output 04/20/24 04/21/24 04/21/24 18:59 06:59 18:59 Output Total 300 Balance -300 Weight 71.214 kg Output: Urine 300 - Exam GENERAL: The patient is alert and oriented x3, not in any acute distress. Well developed, well nourished. HEENT: Pupils are round and equally reacting to light. EOMI. No scleral icterus. No conjunctival pallor. Normocephalic, atraumatic. No pharyngeal erythema. No thyromegaly. CARDIOVASCULAR: S1 and S2 present. No murmurs, rubs, or gallops. PULMONARY: Chest is clear to auscultation, no wheezing , no crackles. -ABDOMEN: Soft, mild periumbilical tenderness nontender, nondistended, normoactive bowel sounds. No palpable organomegaly. NG tube in place MUSCULOSKELETAL: No joint swelling or deformity. EXTREMITIES: No cyanosis, clubbing, or pedal edema. NEUROLOGICAL: Gross neurological examination did not reveal any focal deficits. SKIN: No rashes. no petechiae. - Labs CBC & Chem 7: 04/21/24 02:40 04/21/24 02:40 Labs: Abnormal Lab Results - Last 24 Hours (Table) 04/21/24 04/21/24 04/21/24 Range/Units 02:40 02:40 03:15 Lymphocytes # 0.45 L (0.90-5.00) X 10*3/uL Eosinophils # 0 L (0.04-0.35) X 10*3/uL Potassium 3.2 L (3.5-5.5) mmol/L BUN/Creatinine Ratio 34.29 H (12.00-20.00) Ratio Glucose 114 H (70-110) mg/dL Calcium 8.6 L (8.7-10.3) mg/dL Total Protein 5.2 L (6.2-8.2) g/dL Globulin 1.4 L (1.6-3.3) g/dL Ur Specific [place] 1.038 H (1.001-1.035) Urine Protein 1+ H (Negative) Urine Ketones 2+ H (Negative) Ur Leukocyte Esterase Small H (Negative) Urine RBC 7 H (0-5) /hpf Urine WBC 7 H (0-5) /hpf Urine Bacteria Rare H (None) /hpf Urine Mucus Occasional H (None) /hpf Assessment and Plan Assessment: Partial small bowel obstruction related to small segment of small bowel thic kening Right renal calculus, asymptomatic about 7.3 mm Hypertension Hyperlipidemia Hypothyroidism History of TIA History of cervical cancer about 3 years ago status post chemoradiotherapy Plan: Continue with bowel rest Patient with no significant pain NG tube was placed continue suctioning Continue with normal saline Surgery team consult Further recommendation based on the clinical course GI prophylaxis: Protonix DVT prophylaxis: Subcutaneous heparin Prognosis guarded
[2024-04-21] MEDS: POTASSIUM CHLORIDE 10 MEQ in WATER FOR INJECTION 1 100ML.BAG IVPB SCH (12:40)
--- NOTE | 2024-04-21 15:11 | P.GSCN ---
History of Present Illness Consult date: 04/21/24 History of present illness: CHIEF COMPLAINT: Abdominal pain HISTORY OF PRESENT ILLNESS: This is a 83-year-old female who presented to the hospital with complaints of abdominal pain. Patient was ports symptoms started Sunday evening. She was having nausea and multiple episodes of emesis that was brown in color. She does have a prior history of partial small bowel obstruction that was treated conservatively. Past surgical history does include a cholecystectomy and hysterectomy. Patient reports having hysterectomy for her cervical cancer and did receive radiation and chemotherapy. Patient reports she is not having any flatus and last bowel movement was on Sunday. She reports that the nausea is worse since the NG tube was placed. CT scan had reported a mid partial small bowel obstruction. PAST MEDICAL HISTORY: Cervical cancer, TIA hyperlipidemia hypertension thyroid disease,pancreatitis associated with GB disease, nephrolithiasis/surgically removed, bilateral UTE/aides, benign growth on thyroid, diverticular disease, murmur, bilateral eye glaucoma. PAST SURGICAL HISTORY: Cholecystectomy, hysterectomy MEDICATIONS: See below ALLERGIES: See below SOCIAL HISTORY: No illicit drug use. REVIEW OF SYSTEMS: CONSTITUTIONAL: Denies fever or chills. HEENT: Denies blurred vision, vision changes, or eye pain. Denies hemoptysis CARDIOVASCULAR: Denies chest pain or pressure. RESPIRATORY: No shortness of breath. GASTROINTESTINAL: See HPI for pertinent findings HEMATOLOGIC: Denies bleeding disorders. GENITOURINARY: Denies any blood in urine or increased urinary frequency. SKIN: Denies pruitis. Denies rash. PHYSICAL EXAM: VITAL SIGNS: Reviewed GENERAL: Well-developed in no acute distress. HEENT: No sclera icterus. Extraocular movements grossly intact. Moist buccal mucosa. Head is atraumatic, normocephalic. No nasal drainage. ABDOMEN: Soft. Mildly distended. Nontender NEUROLOGIC: Alert and oriented. Cranial nerves II through XII grossly intact. LABORATORY DATA: WBC 8.14 Hgb 12.5 platelets 195 Sodium 142 potassium 3.2 creatinine 0.7 IMAGING: CT scan abdomen pelvis reports mid partial small bowel obstruction appears to be secondary to a short segment of small bowel wall thickening in the mid upper pelvis. ASSESSMENT: 1. Partial small bowel obstruction 2. Prior history abdominal surgeries 3. Hypokalemia PLAN: -Continue NG tube for decompression -Keep patient n.p.o. -Continue antiemetics. Compazine added -Continue to correct electrolytes -Will plan to order small bowel follow-through tomorrow if patient has not had any flatus or bowel movement Thank you for this consultation Physician Wage And Salary Specialist note has been reviewed by physician. Signing provider agrees with the documented findings, assessment, and plan of care. Past Medical History Past Medical History: Cancer, CVA/TIA, Eye Disorder, Hearing Disorder / Deafness, Hyperlipidemia, Hypertension, Thyroid Disorder Additional Past Medical History / Comment(s): 06/2020 cervical cancer with surgery/radiation/chemo, "mini" strokes, pancreatitis associated with GB disease, nephrolithiasis/surgically removed, bilateral UTE/aides, benign growth on thyroid, diverticular disease, murmur, bilateral eye glaucoma. History of Any Multi-Drug Resistant Organisms: None Reported Past Surgical History: Cholecystectomy, Hysterectomy Additional Past Surgical History / Comment(s): D&C, hysterectomy/BSO, lithotripsy/nephrostomy tube, colonoscopy, thyroid biopsy, bilateral cataract removals, port placement for chemo. port removed 2022 Past Anesthesia/Blood Transfusion Reactions: Family History of Problems w/ Anesthesia, Postoperative Nausea & Vomiting (PONV) Additional Past Anesthesia/Blood Transfusion Reaction / Comm: daughter stopped breathing during anesthesia Past Psychological History: No Psychological Hx Reported Additional Psychological History / Comment(s): Pt resides alone and is indpendent. Smoking Status: Former smoker Past Alcohol Use History: Rare Additional Past Alcohol Use History / Comment(s): Pt started smoking in 1960 and quit in 1990 Past Drug Use History: None Reported - Past Family History Mother Family Medical History: CVA/TIA, Diabetes Mellitus, Hypertension Father Family Medical History: No Reported History Additional Family Medical History / Comment(s): Father was healthy Sister(s) Family Medical History: Cancer Additional Family Medical History / Comment(s): ONE SISTER LYMPHOMA, AND ONE WITH MULT MYELOMA Medications and Allergies Home Medications Medication Instructions Recorded Confirmed Type Aspirin [Adult Low Dose Aspirin EC] 81 tab PO HS 03/23/17 04/20/24 History Lisinopril-Hctz 10-12.5 mg 1 tab PO HS 03/23/17 04/20/24 History [Zestoretic 10-12.5] Multivit with Calcium,Iron,Min 1 tab PO AC-SUPPER 07/23/21 04/20/24 History [Women's Multivitamin] Pravastatin Sodium [Pravachol] 20 mg PO HS 07/23/21 04/20/24 History Hydroxychloroquine Sulfate 200 mg PO BID 08/02/22 04/20/24 History Pantoprazole Sodium [Protonix] 40 mg PO DAILY #30 tab 10/21/22 04/20/24 Rx Ubidecarenone [Coenzyme Q10] 200 mg PO DAILY 04/20/24 04/20/24 History Allergies Allergy/AdvReac Type Severity Reaction Status Date / Time No Known Allergies Allergy Verified 04/20/24 13:29 Surgical - Exam Vital Signs Temp Pulse Resp BP Pulse Ox 97.6 F 72 18 117/65 96 04/20/24 09:47 04/20/24 09:47 04/20/24 09:47 04/20/24 09:47 04/20/24 09:47 Results - Labs 04/21/24 02:40 04/21/24 02:40 Abnormal Lab Results - Last 24 Hours (Table) 04/20/24 04/21/24 04/21/24 Range/Units 10:10 02:40 02:40 Lymphocytes # 0.45 L (0.90-5.00) X 10*3/uL Eosinophils # 0 L (0.04-0.35) X 10*3/uL APTT 21.4 L (22.0-30.0) sec Potassium 3.2 L (3.5-5.5) mmol/L BUN/Creatinine Ratio 34.29 H (12.00-20.00) Ratio Glucose 114 H (70-110) mg/dL Calcium 8.6 L (8.7-10.3) mg/dL Total Protein 5.2 L (6.2-8.2) g/dL Globulin 1.4 L (1.6-3.3) g/dL Ur Specific [place] (1.001-1.035) Urine Protein (Negative) Urine Ketones (Negative) Ur Leukocyte Esterase (Negative) Urine RBC (0-5) /hpf Urine WBC (0-5) /hpf Urine Bacteria (None) /hpf Urine Mucus (None) /hpf 04/21/24 Range/Units 03:15 Lymphocytes # (0.90-5.00) X 10*3/uL Eosinophils # (0.04-0.35) X 10*3/uL APTT (22.0-30.0) sec Potassium (3.5-5.5) mmol/L BUN/Creatinine Ratio (12.00-20.00) Ratio Glucose (70-110) mg/dL Calcium (8.7-10.3) mg/dL Total Protein (6.2-8.2) g/dL Globulin (1.6-3.3) g/dL Ur Specific [place] 1.038 H (1.001-1.035) Urine Protein 1+ H (Negative) Urine Ketones 2+ H (Negative) Ur Leukocyte Esterase Small H (Negative) Urine RBC 7 H (0-5) /hpf Urine WBC 7 H (0-5) /hpf Urine Bacteria Rare H (None) /hpf Urine Mucus Occasional H (None) /hpf Diabetes panel 04/21/24 Range/Units 02:40 Sodium 142 (135-145) mmol/L Potassium 3.2 L (3.5-5.5) mmol/L Chloride 105 (96-109) mmol/L Carbon Dioxide 25.0 (21.6-31.8) mmol/L BUN 24.0 (9.0-27.0) mg/dL Creatinine 0.7 (0.6-1.5) mg/dL Glucose 114 H (70-110) mg/dL Calcium 8.6 L (8.7-10.3) mg/dL AST 32 (13-35) U/L ALT 21 (8-44) U/L Alkaline Phosphatase 55 (41-126) U/L Total Protein 5.2 L (6.2-8.2) g/dL Albumin 3.8 (3.8-4.9) g/dL Calcium panel 04/21/24 Range/Units 02:40 Calcium 8.6 L (8.7-10.3) mg/dL Albumin 3.8 (3.8-4.9) g/dL Pituitary panel 04/21/24 Range/Units 02:40 Sodium 142 (135-145) mmol/L Potassium 3.2 L (3.5-5.5) mmol/L Chloride 105 (96-109) mmol/L Carbon Dioxide 25.0 (21.6-31.8) mmol/L BUN 24.0 (9.0-27.0) mg/dL Creatinine 0.7 (0.6-1.5) mg/dL Glucose 114 H (70-110) mg/dL Calcium 8.6 L (8.7-10.3) mg/dL Adrenal panel 04/21/24 Range/Units 02:40 Sodium 142 (135-145) mmol/L Potassium 3.2 L (3.5-5.5) mmol/L Chloride 105 (96-109) mmol/L Carbon Dioxide 25.0 (21.6-31.8) mmol/L BUN 24.0 (9.0-27.0) mg/dL Creatinine 0.7 (0.6-1.5) mg/dL Glucose 114 H (70-110) mg/dL Calcium 8.6 L (8.7-10.3) mg/dL Total Bilirubin 0.6 (0.3-1.2) mg/dL AST 32 (13-35) U/L ALT 21 (8-44) U/L Alkaline Phosphatase 55 (41-126) U/L Total Protein 5.2 L (6.2-8.2) g/dL Albumin 3.8 (3.8-4.9) g/dL
[2024-04-22 08:34] LABS: Basophils # (A) 0.01 X 10*3/uL (0.00-0.10); Basophils % (A) 0.1 %; Eosinophils # (A) 0 X 10*3/uL (0.04-0.35); Eosinophils % (A) 0 %; HCT 37.8 % (37.2-46.3); HGB 12.9 g/dL (12.0-15.0); Lymphocytes # (A) 0.42 X 10*3/uL (0.90-5.00); Lymphocytes % (A) 4.9 %; MCH 29.8 pg (27.0-32.0); MCHC 34.1 g/dL (32.0-37.0); MCV 87.3 FL (80.0-97.0); Mean Platelet Volume 11.5 FL (9.5-12.2); Monocytes # (A) 0.54 X 10*3/uL (0.20-1.00); Monocytes % (A) 6.3 %; NRBC Per 100 WBC 0 X 10*3/uL (0.00-0.01); Neutrophils # (A) 7.56 X 10*3/uL (1.80-7.70); Neutrophils % (A) 88.2 %; Platelet Count 188 X 10*3/uL (140-440); RBC 4.33 X 10*6/uL (4.10-5.20); RDW 13.3 % (11.5-14.5); WBC 8.57 X 10*3/uL (4.50-10.00)
[2024-04-22 08:44] LABS: BUN/Creat Ratio 43.33 Ratio (12.00-20.00); Calcium 8.7 mg/dL (8.7-10.3); Carbon Dioxide 24.5 mmol/L (21.6-31.8); Chloride 104 mmol/L (96-109); Glucose 122 mg/dL (70-110); Sodium 141 mmol/L (135-145)
--- NOTE | 2024-04-22 14:24 | P.PN ---
Subjective Progress Note Date: 04/22/24 CHIEF COMPLAINT: Partial small bowel obstruction HISTORY OF PRESENT ILLNESS: Patient reports her overall abdominal pain is less. She still has had no flatus or bowel movement. She does report nausea. Patient has NG tube in place with 200 mL brownish output. Afebrile. WBC is 8.57 Hgb 12.9 platelets 188 sodium 141 potassium 3.0 creatinine 0.6 magnesium 2.0 PHYSICAL EXAM: VITAL SIGNS: Reviewed. GENERAL: Well-developed in no acute distress. ABDOMEN: Soft. Nondistended. Nontender. NEUROLOGIC: Alert and oriented. Cranial nerves II through XII grossly intact. ASSESSMENT: 1. Partial small bowel obstruction 2. Hypokalemia PLAN: -Small bowel follow-through ordered with Gastrografin -Potassium being replaced -Continue NG tube for decompression after small bowel follow-through has been c ompleted -Continue IV fluids -Encourage patient to increase activity level -DVT prophylaxis subcu heparin and GI prophylaxis Protonix Physician Java Developer Consultant note has been reviewed by physician. Signing provider agrees with the documented findings, assessment, and plan of care. Objective - Vital Signs Vital signs: Vital Signs Temp 98.2 F 04/22/24 07:30 Pulse 65 04/22/24 07:30 Resp 18 04/22/24 07:30 BP 145/73 04/22/24 07:30 Pulse Ox 96 04/22/24 07:30 FiO2 Intake & Output 04/21/24 04/22/24 04/22/24 18:59 06:59 18:59 Intake Total 1300 Output Total 100 200 Balance 1200 -200 Intake: Intake, IV Titration 1300 Amount Potassium Chloride 10 meq 100 In Water For Injection 1 100ml.bag @ 100 mls/hr IVPB Q8H RADHA Rx#: [id number] Sodium Chloride 0.9% 1, 1200 000 ml @ 100 mls/hr IV . Q10H RADHA Rx#:[id number] Output: Gastric Drainage 100 200 Other: Voiding Method Toilet # Voids 1 1 - Labs CBC & Chem 7: 04/22/24 02:42 04/22/24 02:42 Labs: Abnormal Lab Results - Last 24 Hours (Table) 04/22/24 04/22/24 Range/Units 02:42 02:42 Lymphocytes # 0.42 L (0.90-5.00) X 10*3/uL Eosinophils # 0 L (0.04-0.35) X 10*3/uL Potassium 3.0 L (3.5-5.5) mmol/L Anion Gap 12.50 H (4.00-12.00) mmol/L BUN/Creatinine Ratio 43.33 H (12.00-20.00) Ratio Glucose 122 H (70-110) mg/dL
[2024-04-22] MEDS ORDERED: NALOXONE 0.4 MG/ML 1 ML VIAL IV PRN (17:01)
[2024-04-22] MEDS ORDERED: ONDANSETRON 4 MG/2 ML VIAL IVP PRN (17:01)
[2024-04-22] MEDS: HEPARIN SODIUM,PORCINE 5,000 UNIT/ML 1 ML VIAL SQ SCH (20:40)
--- NOTE | 2024-04-22 21:47 | FL ---
EXAMINATION TYPE: FL small bowel follow through DATE OF EXAM: 04/22/2024 COMPARISON: None HISTORY: Small bowel follow-through small bowel obstruction TECHNIQUE: Sequential images were obtained following the administration of Gastrografin. Nasogastric tube is present. Multiple sequential overhead radiographs were obtained. FINDINGS: Images were obtained over the course of 9 hours. There are multiple dilated small bowel loops within the left mid abdomen. Small amount of bowel gas i s in the region of the ascending colon. Following the administration of contrast the jejunum appears dilated. Oral contrast extends to the mi d right abdomen. No contrast passes beyond this location. The procedure was terminated. Floor was not ified of the results IMPRESSION: 1. Small bowel obstruction. Zone transition is not identified. Contrast extends to approximately the mid ileum without further progress. [facility], , 04/22/2024 9:43 PM
[2024-04-23] MEDS: POTASSIUM CHLORIDE 20 MEQ in WATER FOR INJECTION 1 100ML.BAG IVPB STA (01:50)
[2024-04-23] MEDS: POTASSIUM CHLORIDE 20 MEQ in WATER FOR INJECTION 1 100ML.BAG IVPB SCH (05:07)
--- NOTE | 2024-04-23 05:50 | P.PN ---
Subjective Progress Note Date: 04/22/24 This is a pleasant 83 years old female with past medical history of multiple medical problems. PCP is Dr. Dove Presents because of abdominal pain of 1 day duration started 7 PM last night in the middle of the abdomen nonradiating felt like colic, goes but described by the patient is mild pain associated with significant vomiting, patient states she has been vomiting every 1 hour with no blood Her last bowel movement was yesterday. No diarrhea. She denies chest pain dyspnea. No urinary complaints. No headache dizziness weakness numbness She denies smoking alcohol or illicit drugs She is afebrile Potassium low 3.3 other than that she has unremarkable CBC, BMP, liver enzymes, INR, troponin, lipase Influenza A and type B, RSV, SARS (coronavirus) are un detected\ CT of the abdomen pelvis showing partial small bowel obstruction secondary to short segment of small bowel thickening Right renal calculus about 7.3 mm 04/21 Patient NG tube was in place but patient vomited 3-4 times this morning She has mild to moderate abdominal pain tenderness in her abdomen, similar to yesterday or even less severe KUB showing dilated proximal intestinal loops Chest x-ray showing NG tube in position Currently she is on Zofran, Compazine is added as needed for better control Continue with IV hydration 04/22/2024 Patient is seen and evaluated in follow-up continues with the NG tube and reports no further nausea or vomiting. Patient is not having any bowel movements and has not passed gas and continues with the NG tube for decompression. Patient scheduled to undergo small bowel follow-through for evaluation of obstruction. Patient is currently n.p.o. and will continue with surgery following. Patient is afebrile with no reports of chest pain or shortness of breath. Encouraged to increase activity as tolerated. Potassium mildly low at 3.0 and will replace and follow-up with repeat labs per protocol Review of systems: Constitutional: No reports of fatigue, fever, or chills Cardiovascular: No reports of chest pain or palpitations Respiratory: No reports of shortness of breath or cough GI: reports of occasional nausea, denies vomiting, denies passing any flatus or bowel movement : No reports of dysuria or retention Neurovascular: reports of generalized weakness All medications have been reviewed Physical exam: GENERAL: The patient is alert and oriented x3, not in any acute distress. Well developed, well nourished. Elderly appearing HEENT: Pupils are round and equally reacting to light. EOMI. No scleral icterus. No conjunctival pallor. Normocephalic, atraumatic. No pharyngeal erythema. No thyromegaly. NG tube present CARDIOVASCULAR: S1 and S2 present. No murmurs, rubs, or gallops. PULMONARY: Chest is clear to auscultation, no wheezing , no crackles. -ABDOMEN: Soft, mild periumbilical tenderness nontender, nondistended, hypoactive bowel sounds. No palpable organomegaly. NG tube in place MUSCULOSKELETAL: No joint swelling or deformity. EXTREMITIES: No cyanosis, clubbing, or pedal edema. NEUROLOGICAL: Gross neurological examination did not reveal any focal deficits. SKIN: No rashes. no petechiae. Assessment: Partial small bowel obstruction related to small segment of small bowel thickening Right renal calculus, asymptomatic about 7.3 mm Hypokalemia, being replaced Hypertension Hyperlipidemia Hypothyroidism History of TIA History of cervical cancer about 3 years ago status post chemoradiotherapy GI prophylaxis DVT prophylaxis Full code Plan: Continue with bowel rest and n.p.o. Patient continues with NG tube for de compression and is scheduled to undergo small bowel follow-through with general surgery following Potassium 3.0 and will be replaced per protocol recommend follow-up labs in the a.m. Continue with gentle normal saline Encouraged to increase activity as tolerated with frequent walking Will await small bowel follow-through results. Advance diet only per surgery when appropriate Due to multiple complex medical issues, overall prognosis is guarded The impression and plan of care has been dictated by Karen Teague, Nurse Practitioner as directed. Dr. Shira MD I have performed a history and examination and MDM of this patient, discussed the same with the dictator, and agree with the dictator's assessment and plan as written ,documented as a scribe. Based on total visit time, I have performed more than 50% of the visit. Objective - Vital Signs Vital signs: Vital Signs Temp 98.2 F 04/22/24 07:30 Pulse 65 04/22/24 07:30 Resp 18 04/22/24 07:30 BP 145/73 04/22/24 07:30 Pulse Ox 96 04/22/24 07:30 FiO2 Intake & Output 04/21/24 04/22/24 04/22/24 18:59 06:59 18:59 Intake Total 1300 Output Total 100 200 Balance 1200 -200 Intake: Intake, IV Titration 1300 Amount Potassium Chloride 10 meq 100 In Water For Injection 1 100ml.bag @ 100 mls/hr IVPB Q8H RADHA Rx#: [id number] Sodium Chloride 0.9% 1, 1200 000 ml @ 100 mls/hr IV . Q10H RADHA Rx#:[id number] Output: Gastric Drainage 100 200 Other: Voiding Method Toilet # Voids 1 1 - Labs CBC & Chem 7: 04/22/24 02:42 04/23/24 00:00 Labs: Abnormal Lab Results - Last 24 Hours (Table) 04/22/24 04/22/24 Range/Units 02:42 02:42 Lymphocytes # 0.42 L (0.90-5.00) X 10*3/uL Eosinophils # 0 L (0.04-0.35) X 10*3/uL Potassium 3.0 L (3.5-5.5) mmol/L Anion Gap 12.50 H (4.00-12.00) mmol/L BUN/Creatinine Ratio 43.33 H (12.00-20.00) Ratio Glucose 122 H (70-110) mg/dL
[2024-04-23 08:51] LABS: Basophils # (A) 0.01 X 10*3/uL (0.00-0.10); Basophils % (A) 0.1 %; Eosinophils # (A) 0 X 10*3/uL (0.04-0.35); Eosinophils % (A) 0 %; HCT 39.4 % (37.2-46.3); HGB 13.3 g/dL (12.0-15.0); Lymphocytes # (A) 0.51 X 10*3/uL (0.90-5.00); Lymphocytes % (A) 5.5 %; MCH 29.4 pg (27.0-32.0); MCHC 33.8 g/dL (32.0-37.0); MCV 87.2 FL (80.0-97.0); Mean Platelet Volume 11.6 FL (9.5-12.2); Monocytes # (A) 0.83 X 10*3/uL (0.20-1.00); Monocytes % (A) 8.9 %; NRBC Per 100 WBC 0 X 10*3/uL (0.00-0.01); Neutrophils # (A) 7.92 X 10*3/uL (1.80-7.70); Neutrophils % (A) 84.9 %; Platelet Count 218 X 10*3/uL (140-440); RBC 4.52 X 10*6/uL (4.10-5.20); RDW 13.2 % (11.5-14.5); WBC 9.33 X 10*3/uL (4.50-10.00)
[2024-04-23 09:17] LABS: ALT 32 U/L (8-44); AST 44 U/L (13-35); Albumin 4.1 g/dL (3.8-4.9); Albumin/Globulin Ratio 2.41 Ratio (1.60-3.17); Alkaline Phosphatase 59 U/L (41-126); Blood Urea Nitrogen 22.6 mg/dL (9.0-27.0); Calcium 8.9 mg/dL (8.7-10.3); Carbon Dioxide 27.9 mmol/L (21.6-31.8); Chloride 104 mmol/L (96-109); Globulin 1.7 g/dL (1.6-3.3); Glucose 95 mg/dL (70-110); Potassium 2.8 mmol/L (3.5-5.5); Sodium 146 mmol/L (135-145); Total Bilirubin 0.9 mg/dL (0.3-1.2); Total Protein 5.8 g/dL (6.2-8.2)
--- NOTE | 2024-04-23 09:28 | XR ---
EXAMINATION TYPE: XR KUB DATE OF EXAM: 04/23/2024 COMPARISON: 04/22/2024 HISTORY: Pain TECHNIQUE: Single supine KUB image of the abdomen is obtained FINDINGS: Small bowel dilatation persists although is much improved relative to the prior study. There is a dil ated loop of bowel measuring approximately 3.8 cm left upper quadrant. Large bowel is of normal calib er. NG tube port appears to be at the GE junction. No convincing evidence for pneumoperitoneum. No unusual calcifications. The lung bases are clear. The osseous structures are intact. IMPRESSION: 1. Small bowel dilatation persists although is much improved relative to the prior study. There is a dilated loop of bowel measuring approximately 3.8 cm left upper quadrant. Large bowel is of normal c aliber. NG tube port appears to be at the GE junction. [facility], , 04/23/2024 9:25 AM
[2024-04-23] MEDS: SODIUM CHLORIDE 0.9% 1,000 ML with POTASSIUM CHLORIDE 40 MEQ IV SCH (12:24)
--- NOTE | 2024-04-23 15:15 | P.PN ---
Subjective Progress Note Date: 04/23/24 CHIEF COMPLAINT: Partial small bowel obstruction HISTORY OF PRESENT ILLNESS: Patient reports having had a small mount of flatus twice. She did have 2 episodes of vomiting past the NG tube. She does report some abdominal cramping. She does also report feeling hungry and wanting to eat. Afebrile. NG tube with bloody output. NG tube suctioning had been set at high. WBC is 9.3 hemoglobin stable at 13.3 platelets 218 potassium 2.8 sodium 146 creatinine 0.5. Small bowel follow-through reports small bowel obstruction. Zone transition is not identified. Contrast extends to the mid ileum without f urther progress. KUB x-ray from this morning reports small bowel dilatation persists although it is much improved relative to the prior study there is a dilated loop of bowel measuring 3.8 cm. Imaging reviewed by surgeon and contrast noted in colon. PHYSICAL EXAM: VITAL SIGNS: Reviewed. GENERAL: Well-developed in no acute distress. ABDOMEN: Soft. Nondistended. Nontender. NEUROLOGIC: Alert and oriented. Cranial nerves II through XII grossly intact. ASSESSMENT: 1. Partial small bowel obstruction 2. Hypokalemia PLAN: -Discontinue NG tube -Sips of clear liquids -Blood noted from NG tube was likely due to being at high suction. hgb stable -Continue IV Protonix -Encourage patient to ambulate -Continue IV fluids -DVT prophylaxis subcu heparin and GI prophylaxis Protonix Physician Light Bulb Assembler note has been reviewed by physician. Signing provider agrees with the documented findings, assessment, and plan of care. Objective - Vital Signs Vital signs: Vital Signs Temp 98.1 F 04/23/24 07:33 Pulse 67 04/23/24 07:33 Resp 18 04/23/24 07:33 BP 161/70 04/23/24 07:33 Pulse Ox 94 L 04/23/24 07:33 FiO2 Intake & Output 04/22/24 04/23/24 04/23/24 18:59 06:59 18:59 Other: Voiding Method Toilet # Voids 1 3 1 - Labs CBC & Chem 7: 04/23/24 03:01 04/23/24 14:58 Labs: Abnormal Lab Results - Last 24 Hours (Table) 04/23/24 04/23/24 04/23/24 Range/Units 00:00 03:01 03:01 Immature Gran # 0.06 H (0.00-0.04) X 10*3/uL Neutrophils # 7.92 H (1.80-7.70) X 10*3/uL Lymphocytes # 0.51 L (0.90-5.00) X 10*3/uL Eosinophils # 0 L (0.04-0.35) X 10*3/uL Sodium 146 H (135-145) mmol/L Potassium 2.7 L* 2.8 L (3.5-5.1) mmol/L Anion Gap 14.10 H (4.00-12.00) mmol/L Creatinine 0.5 L (0.6-1.5) mg/dL BUN/Creatinine Ratio 45.20 H (12.00-20.00) Ratio AST 44 H (13-35) U/L Total Protein 5.8 L (6.2-8.2) g/dL Assessment and Plan Assessment: sbo resolving -remove ng tube -start clear liquid diet Time with Patient: Less than 30
[2024-04-23 15:43] LABS: ALT 59 U/L (4-34); AST 84 U/L (14-36); African American GFR (CKD) >90 (>60 ml/min/1.73 sqM); Albumin 4.5 g/dL (3.5-5.0); Albumin/Globulin Ratio 2.1; Alkaline Phosphatase 73 U/L (38-126); Anion Gap 9 mmol/L; Blood Urea Nitrogen 29 mg/dL (7-17); Calcium 9.7 mg/dL (8.4-10.2); Carbon Dioxide 28 mmol/L (22-30); Chloride 106 mmol/L (98-107); Globulin 2.1 g/dL; Glucose 88 mg/dL (74-99); Non-African American GFR(CKD) 86 (>60 ml/min/1.73 sqM); Potassium 3.3 mmol/L (3.5-5.1); Sodium 143 mmol/L (137-145); Total Protein 6.6 g/dL (6.3-8.2)
[2024-04-23] MEDS ORDERED: Potassium Replacement Protocol 1 EACH MISC MISCELLANE PRN (15:59)
[2024-04-23] MEDS: POTASSIUM CHLORIDE ER 20 MEQ TAB.ER PO SCH (17:54)
--- NOTE | 2024-04-24 05:48 | P.PN ---
Subjective Progress Note Date: 04/23/24 This is a pleasant 83 years old female with past medical history of multiple medical problems. PCP is Dr. Dove Presents because of abdominal pain of 1 day duration started 7 PM last night in the middle of the abdomen nonradiating felt like colic, goes but described by the patient is mild pain associated with significant vomiting, patient states she has been vomiting every 1 hour with no blood Her last bowel movement was yesterday. No diarrhea. She denies chest pain dyspnea. No urinary complaints. No headache dizziness weakness numbness She denies smoking alcohol or illicit drugs She is afebrile Potassium low 3.3 other than that she has unremarkable CBC, BMP, liver enzymes, INR, troponin, lipase Influenza A and type B, RSV, SARS (coronavirus) are un detected\ CT of the abdomen pelvis showing partial small bowel obstruction secondary to short segment of small bowel thickening Right renal calculus about 7.3 mm 04/21 Patient NG tube was in place but patient vomited 3-4 times this morning She has mild to moderate abdominal pain tenderness in her abdomen, similar to yesterday or even less severe KUB showing dilated proximal intestinal loops Chest x-ray showing NG tube in position Currently she is on Zofran, Compazine is added as needed for better control Continue with IV hydration 04/22/2024 Patient is seen and evaluated in follow-up continues with the NG tube and reports no further nausea or vomiting. Patient is not having any bowel movements and has not passed gas and continues with the NG tube for decompression. Patient scheduled to undergo small bowel follow-through for evaluation of obstruction. Patient is currently n.p.o. and will continue with surgery following. Patient is afebrile with no reports of chest pain or shortness of breath. Encouraged to increase activity as tolerated. Potassium mildly low at 3.0 and will replace and follow-up with repeat labs per protocol 04/23/2024 Patient is seen in follow-up today currently sitting up in the chair continues with the NG tube and there is some blood noted in the NG. When discussing with nursing staff suction was noted to be on high suction which may have caused some irritation in the lining of the stomach which led to blood noted in the tubing. Surgery discussing possibly removing the NG tube and starting clear sips of water as patient reports she had to episodes of very small flatus. Small bowel follow-through was suggestive of partial bowel obstruction and general surgery following with conservative management at this time. Encouraged to increase activity as tolerated with frequent walking. Will order repeat labs and monitor hemoglobin for any further bleeding. Review of systems: Constitutional: No reports of fatigue, fever, or chills Cardiovascular: No reports of chest pain or palpitations Respiratory: No reports of shortness of breath or cough GI: reports of occasional nausea, denies vomiting, reports passing very small flatus, denies bowel movement : No reports of dysuria or retention Neurovascular: reports of generalized weakness All medications have been reviewed Physical exam: GENERAL: The patient is alert and oriented x3, not in any acute distress. Well developed, well nourished. Elderly appearing HEENT: Pupils are round and equally reacting to light. EOMI. No scleral icterus. No conjunctival pallor. Normocephalic, atraumatic. No pharyngeal erythema. No thyromegaly. NG tube present CARDIOVASCULAR: S1 and S2 present. No murmurs, rubs, or gallops. PULMONARY: Chest is clear to auscultation, no wheezing , no crackles. -ABDOMEN: Soft, mild periumbilical tenderness nontender, nondistended, hypoactive bowel sounds. No palpable organomegaly. NG tube in place MUSCULOSKELETAL: No joint swelling or deformity. EXTREMITIES: No cyanosis, clubbing, or pedal edema. NEUROLOGICAL: Gross neurological examination did not reveal any focal deficits. SKIN: No rashes. no petechiae. Assessment: Partial small bowel obstruction related to small segment of small bowel thickening Right renal calculus, asymptomatic about 7.3 mm Hypokalemia, being replaced Hypertension Hyperlipidemia Hypothyroidism History of TIA History of cervical cancer about 3 years ago status post chemoradiotherapy GI prophylaxis DVT prophylaxis Full code Plan: Continue with bowel rest and n.p.o. Patient continues with NG tube for decompression and is status post small bowel follow-through suggestive of partial bowel obstruction. Surgery discussing removing the NG tube and starting with sips of water as patient reports passing gas twice. Denies bowel movements as of yet NG tube was noted with some blood although hemoglobin is stable and was also fou nd to be on high suction by nursing staff, most likely secondary to irritation and will monitor hemoglobin Potassium continues to be low at 3.0 and being replaced per protocol recommend, follow-up labs in the a.m. Continue with gentle normal saline Encouraged to increase activity as tolerated with frequent walking Due to multiple complex medical issues, overall prognosis is guarded The impression and plan of care has been dictated by Karen Teague, Nurse Practitioner as directed. Dr. Shira MD I have performed a history and examination and MDM of this patient, discussed the same with the dictator, and agree with the dictator's assessment and plan as written ,documented as a scribe. Based on total visit time, I have performed more than 50% of the visit. Objective - Vital Signs Vital signs: Vital Signs Temp 97.8 F 04/24/24 02:00 Pulse 68 04/24/24 02:00 Resp 18 04/23/24 15:55 BP 150/66 04/24/24 02:00 Pulse Ox 96 04/24/24 02:00 FiO2 Intake & Output 04/23/24 04/23/24 04/24/24 06:59 18:59 06:59 Intake Total 120 Balance 120 Intake: Oral 120 Other: Voiding Method Toilet Toilet # Voids 3 2 - Labs CBC & Chem 7: 04/23/24 03:01 04/23/24 14:58 Labs: Abnormal Lab Results - Last 24 Hours (Table) 04/23/24 04/23/24 04/23/24 Range/Units 03:01 03:01 14:58 Immature Gran # 0.06 H (0.00-0.04) X 10*3/uL Neutrophils # 7.92 H (1.80-7.70) X 10*3/uL Lymphocytes # 0.51 L (0.90-5.00) X 10*3/uL Eosinophils # 0 L (0.04-0.35) X 10*3/uL Sodium 146 H (135-145) mmol/L Potassium 2.8 L 3.3 L (3.5-5.5) mmol/L Anion Gap 14.10 H (4.00-12.00) mmol/L BUN 29 H (7-17) mg/dL Creatinine 0.5 L (0.6-1.5) mg/dL BUN/Creatinine Ratio 45.20 H (12.00-20.00) Ratio Total Bilirubin 2.0 H (0.2-1.3) mg/dL AST 44 H 84 H (13-35) U/L ALT 59 H (4-34) U/L Total Protein 5.8 L (6.2-8.2) g/dL
[2024-04-24 07:39] VITALS: BP 175/81; PULSE 75; RESP 17; TEMP 97.5
[2024-04-24 08:28] LABS: Basophils # (A) 0.01 X 10*3/uL (0.00-0.10); Basophils % (A) 0.1 %; Eosinophils # (A) 0.01 X 10*3/uL (0.04-0.35); Eosinophils % (A) 0.1 %; HGB 13.6 g/dL (12.0-15.0); Lymphocytes # (A) 0.57 X 10*3/uL (0.90-5.00); Lymphocytes % (A) 8.4 %; MCH 29.6 pg (27.0-32.0); MCV 87.1 FL (80.0-97.0); Monocytes # (A) 0.73 X 10*3/uL (0.20-1.00); Monocytes % (A) 10.8 %; NRBC Per 100 WBC 0 X 10*3/uL (0.00-0.01); Neutrophils # (A) 5.38 X 10*3/uL (1.80-7.70); Neutrophils % (A) 79.9 %; Platelet Count 205 X 10*3/uL (140-440); RBC 4.59 X 10*6/uL (4.10-5.20); RDW 13.1 % (11.5-14.5); WBC 6.75 X 10*3/uL (4.50-10.00)
[2024-04-24 08:48] LABS: BUN/Creat Ratio 45.17 Ratio (12.00-20.00); Blood Urea Nitrogen 27.1 mg/dL (9.0-27.0); Glucose 111 mg/dL (70-110)
[2024-04-24 08:49] LABS: ALT 72 U/L (8-44); AST 70 U/L (13-35); Albumin 3.7 g/dL (3.8-4.9); Albumin/Globulin Ratio 2.47 Ratio (1.60-3.17); Alkaline Phosphatase 58 U/L (41-126); Calcium 8.5 mg/dL (8.7-10.3); Chloride 104 mmol/L (96-109); Globulin 1.5 g/dL (1.6-3.3); Potassium 3.3 mmol/L (3.5-5.5); Sodium 141 mmol/L (135-145); Total Bilirubin 0.9 mg/dL (0.3-1.2); Total Protein 5.2 g/dL (6.2-8.2)
[2024-04-24] MEDS ORDERED: Potassium Replacement Protocol 1 EACH MISC MISCELLANE PRN (09:20)
[2024-04-24] MEDS: PANTOPRAZOLE 40 MG/10 ML VIAL IV SCH (09:52)
[2024-04-24] MEDS: POTASSIUM CHLORIDE ER 20 MEQ TAB.ER PO SCH (09:56)
--- NOTE | 2024-04-24 13:15 | P.PN ---
Subjective Progress Note Date: 04/24/24 CHIEF COMPLAINT: Small bowel obstruction HISTORY OF PRESENT ILLNESS: Patient had NG tube removed yesterday. She has had bowel movements and flatus. She is tolerating the clear liquids. She denies any abdominal pain. She has been up and ambulating. She is feeling better and ready for discharge. WBC 6.75 Hgb 13.6 potassium is 3.3 PHYSICAL EXAM: VITAL SIGNS: Reviewed. GENERAL: Well-developed in no acute distress. ABDOMEN: Soft. Nondistended. Nontender. NEUROLOGIC: Alert and oriented. Cranial nerves II through XII grossly intact. ASSESSMENT: 1. Small bowel obstruction resolved. Treated with conservative management 2. Hypokalemia PLAN: -Advance diet to regular -Patient can be discharged from surgical standpoint if tolerates lunch -Continue to correct potassium -Discontinue IV fluids -DVT prophylaxis subcu heparin and GI prophylaxis Protonix Physician Cosmetic Sales Consultant note has been reviewed by physician. Signing provider agrees with the documented findings, assessment, and plan of care. Objective - Vital Signs Vital signs: Vital Signs Temp 97.5 F L 04/24/24 07:38 Pulse 75 04/24/24 07:38 Resp 17 04/24/24 07:38 BP 175/81 04/24/24 07:38 Pulse Ox 97 04/24/24 07:38 FiO2 Intake & Output 04/23/24 04/24/24 04/24/24 18:59 06:59 18:59 Intake Total 120 Balance 120 Intake: Oral 120 Other: Voiding Method Toilet # Voids 2 3 - Labs CBC & Chem 7: 04/24/24 04:51 04/24/24 04:51 Labs: Abnormal Lab Results - Last 24 Hours (Table) 04/23/24 04/24/24 04/24/24 Range/Units 14:58 04:51 04:51 Immature Gran # 0.05 H (0.00-0.04) X 10*3/uL Lymphocytes # 0.57 L (0.90-5.00) X 10*3/uL Eosinophils # 0.01 L (0.04-0.35) X 10*3/uL Potassium 3.3 L 3.3 L (3.5-5.1) mmol/L BUN 29 H 27.1 H (7-17) mg/dL BUN/Creatinine Ratio 45.17 H (12.00-20.00) Ratio Glucose 111 H (70-110) mg/dL Calcium 8.5 L (8.7-10.3) mg/dL Total Bilirubin 2.0 H (0.2-1.3) mg/dL AST 84 H 70 H (14-36) U/L ALT 59 H 72 H (4-34) U/L Total Protein 5.2 L (6.2-8.2) g/dL Albumin 3.7 L (3.8-4.9) g/dL Globulin 1.5 L (1.6-3.3) g/dL
--- NOTE | 2024-04-29 06:08 | P.DS ---
Providers Date of admission: 04/21/24 11:30 Expected date of discharge: 04/24/24 Attending physician: Carlos Rinaldi MD Consults: 04/20/24 12:53 Consult Physician Routine Consulting Provider: Aron Lees Consult Reason/Comments: partial SBO Do you want consulting provider notified?: Already Contacted Primary care physician: Andrew Dove [facility] Hospital Course: Final diagnosis Partial small bowel obstruction related to small segment of small bowel thickening, improving. Right renal calculus, asymptomatic about 7.3 mm Hypokalemia, being replaced, improved after replacement Hypertension Hyperlipidemia Hypothyroidism History of TIA History of cervical cancer about 3 years ago status post chemoradiotherapy GI prophylaxis DVT prophylaxis Full code Discharge disposition Patient is being discharged in a stable condition with guarded prognosis to home. Patient will follow-up with Dr. Dove in the outpatient setting upon discharge. Patient is to continue with current medications and outpatient follow-up with general surgery as scheduled. Total time taken is greater than 35 minutes. Hospital course This is a 83-year-old female who was recently admitted with abdominal pain with concerns of partial small bowel obstruction being monitored with general surgery following. Patient required n.p.o. and NG tube for quite some time underwent a small bowel through initially showing a partial small bowel obstruction and repeat imaging showing the contrast had moved down and patient slowly improved and has started having bowel movements and NG tube was removed and diet was advanced. Patient is tolerating with no further episodes of abdominal pain and is having bowel movements. Patient has been cleared by consultations with outpatient follow-up recommended. Please refer to other consultation notes for further HPI. Currently no reports of chest pain, shortness of breath, or palpitations. Patient is afebrile. No reports of nausea or vomiting and patient is tolerating diet. Patient will be discharged home today. Guarded prognosis. Physical exam: Gen: This is a 83-year-old female who is awake, alert and oriented x 3, well- developed, well-nourished HEENT: Head is atraumatic, normocephalic. Pupils equal, round. Sclerae is anicteric. NECK: Supple. No JVD. No lymphadenopathy. No thyromegaly. LUNGS: Diminished breath sounds bilaterally otherwise clear to auscultation. No wheezes or rhonchi. No intercostal retractions. HEART: Regular rate and rhythm. No murmur. ABDOMEN: Soft. Bowel sounds are present. No masses. No tenderness. EXTREMITIES: No pedal edema. No calf tenderness. NEUROLOGICAL: Patient is awake, alert and oriented x3. Cranial nerves 2 through 12 are grossly intact. Please refer to medication reconciliation sheet for a list of medications. The impression and plan of care has been dictated by Karen Teague, Nurse Practitioner as directed. Dr. Shira MD I have performed a history and examination and MDM of this patient, discussed the same with the dictator, and agree with the dictator's assessment and plan as written ,documented as a scribe. Based on total visit time, I have performed more than 50% of the visit. Patient Condition at Discharge: Stable Plan - Discharge Summary Discharge Rx Participant: Yes New Discharge Prescriptions: Continue Lisinopril-Hctz 10-12.5 mg [Zestoretic 10-12.5] 1 tab PO HS Aspirin [Adult Low Dose Aspirin EC] 81 tab PO HS Pravastatin Sodium [Pravachol] 20 mg PO HS Hydroxychloroquine Sulfate 200 mg PO BID Multivit with Calcium,Iron,Min [Women's Multivitamin] 1 tab PO AC-SUPPER Pantoprazole Sodium [Protonix] 40 mg PO DAILY #30 tab Ubidecarenone [Coenzyme Q10] 200 mg PO DAILY Discharge Medication List Aspirin [Adult Low Dose Aspirin EC] 81 tab PO HS 03/23/17 [History] Lisinopril-Hctz 10-12.5 mg [Zestoretic 10-12.5] 1 tab PO HS 03/23/17 [History] Multivit with Calcium,Iron,Min [Women's Multivitamin] 1 tab PO AC-SUPPER 07/23/21 [History] Pravastatin Sodium [Pravachol] 20 mg PO HS 07/23/21 [History] Hydroxychloroquine Sulfate 200 mg PO BID 08/02/22 [History] Pantoprazole Sodium [Protonix] 40 mg PO DAILY #30 tab 10/21/22 [Rx] Ubidecarenone [Coenzyme Q10] 200 mg PO DAILY 04/20/24 [History] Follow up Appointment(s)/Referral(s): Andrew Dove DO [Primary Care Provider] - 1 Week Aron Lees DO [Doctor of Osteopathic Medicine] - 1 Week Ambulatory/Diagnostic Orders: Complete Blood Count w/diff [LAB.AMB] Time Frame: 1 Week, Location: None Selected Activity/Diet/Wound Care/Special Instructions: Activity limited until follow-up Follow-up with primary care provider on discharge Continue current diet and slowly advance as tolerated Follow-up with general surgery outpatient as needed Repeat labs in the next few days to monitor kidney functions and electrolytes Discharge Disposition: HOME SELF-CARE
== END 2024-04-24 15:40 | disposition home or self-care (01) | DRG 390 ==
LOC: EC 09:45 → 5NMEDONC 12:53 → 4SSUR 15:13 → OBSVTOIN 04-21 11:30
PROVIDERS: ADMIT Internal Medicine; ATTEND Internal Medicine
DX: K56.690 Other partial intestinal obstruction (principal); N20.0 Calculus of kidney; I10 Essential (primary) hypertension; E03.9 Hypothyroidism, unspecified; E78.5 Hyperlipidemia, unspecified; E87.6 Hypokalemia; H91.90 Unspecified hearing loss, unspecified ear; Z90.710 Acquired absence of both cervix and uterus; Z85.41 Personal history of malignant neoplasm of cervix uteri; Z86.73 Personal history of transient ischemic attack (TIA), and cerebral infarction without residual deficits; Z92.21 Personal history of antineoplastic chemotherapy; Z92.3 Personal history of irradiation; Z79.82 Long term (current) use of aspirin; Z79.899 Other long term (current) drug therapy; Z87.442 Personal history of urinary calculi; Z87.891 Personal history of nicotine dependence; Z90.49 Acquired absence of other specified parts of digestive tract; Z80.7 Family history of other malignant neoplasms of lymphoid, hematopoietic and related tissues
CPT/HCPCS: 36415; 71045; 74018; 74177; 74250; 80048; 80053; 81001; 82150; 83605; 83690; 83735; 84132; 84484; 85025; 85610; 85730; 87636; 93005; 96361; 96374; 96375; 99285

== ENCOUNTER → 2024-04-28 | Outpatient (CLI) | payer MEDICARE, BC ==
[2024-04-28 11:15] LABS: Basophils # (A) 0.04 X 10*3/uL (0.00-0.10); Basophils % (A) 0.7 %; Eosinophils # (A) 0.19 X 10*3/uL (0.04-0.35); Eosinophils % (A) 3.2 %; HCT 38.9 % (37.2-46.3); Lymphocytes # (A) 1.27 X 10*3/uL (0.90-5.00); Lymphocytes % (A) 21.7 %; MCH 28.8 pg (27.0-32.0); MCHC 33.4 g/dL (32.0-37.0); MCV 86.3 FL (80.0-97.0); Mean Platelet Volume 11.7 FL (9.5-12.2); Monocytes # (A) 0.59 X 10*3/uL (0.20-1.00); Monocytes % (A) 10.1 %; NRBC Per 100 WBC 0 X 10*3/uL (0.00-0.01); Neutrophils # (A) 3.69 X 10*3/uL (1.80-7.70); Neutrophils % (A) 63.1 %; Platelet Count 214 X 10*3/uL (140-440); RBC 4.51 X 10*6/uL (4.10-5.20); RDW 13.3 % (11.5-14.5); WBC 5.85 X 10*3/uL (4.50-10.00)
[2024-04-28 11:24] LABS: Magnesium 1.8 mg/dL (1.5-2.4)
[2024-04-28 11:41] LABS: ALT 56 U/L (8-44); AST 44 U/L (13-35); Alkaline Phosphatase 55 U/L (41-126); Blood Urea Nitrogen 14.8 mg/dL (9.0-27.0); Calcium 9.1 mg/dL (8.7-10.3); Carbon Dioxide 27.9 mmol/L (21.6-31.8); Chloride 99 mmol/L (96-109); Globulin 1.6 g/dL (1.6-3.3); Glucose 114 mg/dL (70-110); Potassium 3.4 mmol/L (3.5-5.5); Sodium 140 mmol/L (135-145); Total Bilirubin 0.4 mg/dL (0.3-1.2); Total Protein 5.6 g/dL (6.2-8.2)
== END | disposition home or self-care (01) ==
LOC: LABWHC1 07:42
PROVIDERS: ATTEND Registered Nurse
DX: E87.6 Hypokalemia (principal)
CPT/HCPCS: 36415; 80053; 83735; 85025